=== PATIENT | male | born 1945 | race Caucasian/White ===

== ENCOUNTER 2018-05-23 10:56 | Emergency (ER) | payer OTHER, MEDICARE ==
[2018-05-23] MEDS ORDERED: TETANUS & DIPHTHERIA TOX,ADULT 0.5 ML VIAL ONE (11:47)
[2018-05-23] MEDS ORDERED: LIDOCAINE 1% MPF 5 ML VIAL ONE (11:47)
--- NOTE | 2018-05-23 13:43 | RAD REPORT ---
EXAM DESCRIPTION: RAD - Hand Left 3 View - 05/23/2018 1:24 pm CLINICAL HISTORY: Table saw injury, thumb and first digit laceration COMPARISON: None. FINDINGS: There is focal cortical irregularity along the ventral margin of the distal phalanx left t humb near the base. Soft tissue wound appears to be more distally in the thumb. No fracture fragments identified. IP joint of the thumb is intact. No foreign body in the soft tissues. The second- fifth digits show no acute bone or joint finding. No significant soft tissue finding. Pat ient has mild degenerative change at the first MCP joint as well as the first carpal - metacarpal art iculation. IMPRESSION: No gross fracture deformity or bone fragments in the soft tissues. No foreign body seen. Focal cortical defect in the ventral margin of the first distal phalanx is potentially an acute bone injury though there are no small fragments associated. Soft tissue wound of the distal left thumb.
--- NOTE | 2018-05-23 14:18 | ER ---
Nurse's Notes [facility] Name: Gary Rader Age: 72 yrs Sex: Male : 1945 Arrival Date: 05/23/2018 Time: 10:59 Bed 18 Private MD: John Varela T Diagnosis: Thumb Laceration Presentation: 05/23 11:02 Presenting complaint: Patient states: Laceration to left thumb from a table saw. jl7 Transition of care: patient was not received from another setting of care. Onset of symptoms was May 23, 2018. Risk Assessment: Do you want to hurt yourself or someone else? Patient reports no desire to harm self or others. Initial Sepsis Screen: Does the patient meet any 2 criteria? No. Patient's initial sepsis screen is negative. Does the patient have a suspected source of infection? No. Patient's initial sepsis screen is negative. Care prior to arrival: None. 11:02 Method Of Arrival: Ambulatory 7 11:02 Acuity: KAREL 4 jl7 Triage Assessment: 11:06 General: Appears in no apparent distress. uncomfortable, Behavior is calm, cooperative, jl7 appropriate for age. Pain: Complains of pain in palmar aspect of distal phalanx of left thumb Pain does not radiate. Pain currently is 6 out of 10 on a pain scale. Quality of pain is described as burning. Musculoskeletal: Range of motion: intact in all extremities. Injury Description: Laceration sustained to palmar aspect of distal phalanx of left thumb is contaminated, jagged, 0.5 to 2.5 cm long, was sustained 30-60 minutes ago. no active bleeding noted at this time. Historical: - Allergies: 11: No Known Allergies; jl7 - Home Meds: 11:06 Digoxin Oral [Active]; Metoprolol Tartrate Oral [Active]; jl7 - PMHx: 11:06 Atrial Fib; Diabetes - IDDM; Hypertension; jl7 - PSHx: 11:06 L knee replacement; R hip surgery; jl7 - Immunization history:: Adult Immunizations not up to date, Last tetanus immunization: > 10 years ago. - Social history:: Smoking status: Patient/guardian denies using tobacco. - Ebola Screening: : No symptoms or risks identified at this time. - Family history:: not pertinent. - Hospitalizations: : No recent hospitalization is reported. Screenin:11 Abuse screen: Denies threats or abuse. Denies injuries from another. Nutritional hj screening: No deficits noted. Tuberculosis screening: No symptoms or risk factors identified. Fall Risk None identified. Assessment: 11:10 General: Appears in no apparent distress. uncomfortable, Behavior is calm, cooperative, hj appropriate for age. Pain: Complains of pain in palmar aspect of distal phalanx of left thumb. Neuro: Level of Consciousness is awake, alert, obeys commands, Oriented to person, place, time, situation, Appropriate for age. Cardiovascular: Capillary refill < 3 seconds Patient's skin is warm and dry. Respiratory: Airway is patent Respiratory effort is even, unlabored, Respiratory pattern is regular, symmetrical. GI: No signs and/or symptoms were reported involving the gastrointestinal system. : EENT: No signs and/or symptoms were reported regarding the EENT system. Derm: Wound noted palmar aspect of distal phalanx of left thumb. Musculoskeletal: No signs and/or symptoms reported regarding the musculoskeletal system. 12:30 Reassessment: Patient and/or family updated on plan of care and expected duration. Pain hj level reassessed. Patient is alert, oriented x 3, equal unlabored respirations, skin warm/dry/pink. still waiting for xray;. 13:15 Reassessment: Patient and/or family updated on plan of care and expected duration. Pain hj level reassessed. Patient is alert, oriented x 3, equal unlabored respirations, skin warm/dry/pink. pt affected soaked in betadine with NS. Vital Signs: 11:06 BP 138 / 100; Pulse 83; Resp 18 S; Temp 98.1(O); Pulse Ox 98% on R/A; Weight 104.33 kg jl7 (R); Height 6 ft. 4 in. (193.04 cm) (R); Pain 6/10; 12:45 BP 137 / 92; Pulse 85; Resp 18; Pulse Ox 100% on R/A; hj 13:52 BP 137 / 95; Pulse 84; Resp 18; Pulse Ox 100% on R/A; hj 11:06 Body Mass Index 28.00 (104.33 kg, 193.04 cm) 7 ED Course: 10:59 Patient arrived in ED. mr 11:00 John Varela MD is Private Physician. mr 11:03 Triage completed. jl7 11:06 Arm band placed on right wrist. jl7 11:11 Cleveland Moy, RN is Primary Nurse. hj 11:11 Patient has correct armband on for positive identification. Bed in low position. Call hj light in reach. Side rails up X 1. 11:27 Alfonso Amaya MD is Attending Physician. rn 13:24 XRAY Hand LEFT 3 View In Process Unspecified. EDMS 14:16 John Varela MD is Referral Physician. rn 14:23 No provider procedures requiring assistance completed. Patient did not have IV access hj during this emergency room visit. Administered Medications: 11:36 Drug: Tetanus-Diphtheria Toxoid Adult 0.5 ml {Mental Health Consultant: [employer]. Exp: [employer] 07/23/2020. Lot #: [id number]. } Route: IM; Site: left deltoid; 13:34 Follow up: Response: No adverse reaction hj 13:34 Drug: Lidocaine (1 %) 1 vials Volume: 5 ml; Route: Infiltration; hj 13:34 Follow up: Response: No adverse reaction hj Outcome: 14:17 Discharge ordered by MD. rn 14:23 Discharged to home ambulatory. hj 14:23 Condition: stable 14:23 Discharge instructions given to patient, Instructed on discharge instructions, follow up and referral plans. medication usage, Demonstrated understanding of instructions, follow-up care, medications, Prescriptions given X 1. 14:24 Patient left the ED. Signatures: Dispatcher [employer] [facility] Dawna Conley Alfonso Amaya MD MD rn Joaquin, Henry, RN Daisha Andrew RN RN jl7
--- NOTE | 2018-05-23 14:18 | EDPHYS ---
Physician Documentation [facility] Name: Gary Rader Age: 72 yrs Sex: Male : 1945 Arrival Date: 05/23/2018 Time: 10:59 Bed 18 Private MD: John Varela T ED Physician Alfonso Amaya HPI: 05/23 14:14 This 72 yrs old Male presents to ER via Ambulatory with complaints of Thumb rn Injury. 14:14 The patient or guardian reports a laceration. The complaints affect the palmar aspect rn of distal phalanx of left thumb. Onset: The symptoms/episode began/occurred just prior to arrival. Severity of symptoms: At their worst the symptoms were mild, in the emergency department the symptoms are unchanged. The patient has not experienced similar symptoms in the past. Accidental laceration left thumb on table saw approx 45 min prior to arrival.. Historical: - Allergies: 11:06 No Known Allergies; jl7 - Home Meds: 11:06 Digoxin Oral [Active]; Metoprolol Tartrate Oral [Active]; jl7 - PMHx: 11:06 Atrial Fib; Diabetes - IDDM; Hypertension; jl7 - PSHx: 11:06 L knee replacement; R hip surgery; jl7 - Immunization history:: Adult Immunizations not up to date, Last tetanus immunization: > 10 years ago. - Social history:: Smoking status: Patient/guardian denies using tobacco. - Ebola Screening: : No symptoms or risks identified at this time. - Family history:: not pertinent. - Hospitalizations: : No recent hospitalization is reported. ROS: 14:14 Constitutional: Negative for fever, chills, and weight loss, MS/Extremity: + laceration rn left thumb Exam: 14:14 Constitutional: This is a well developed, well nourished patient who is awake, alert, rn and in no acute distress. MS/ Extremity: Pulses equal, no cyanosis. Neurovascular intact. Full, normal range of motion. Equal circumference. + 2 small superficial lacerations left thumb, first is 1cm, second is 2cm, cannot probe to bone Vital Signs: 11:06 BP 138 / 100; Pulse 83; Resp 18 S; Temp 98.1(O); Pulse Ox 98% on R/A; Weight 104.33 kg jl7 (R); Height 6 ft. 4 in. (193.04 cm) (R); Pain 6/10; 12:45 BP 137 / 92; Pulse 85; Resp 18; Pulse Ox 100% on R/A; hj 13:52 BP 137 / 95; Pulse 84; Resp 18; Pulse Ox 100% on R/A; hj 11:06 Body Mass Index 28.00 (104.33 kg, 193.04 cm) jl7 Laceration: 14:03 Wound Repair of 4cm ( 1.6in ) subcutaneous laceration to palmar aspect of distal pm1 phalanx of left thumb. Linear shaped.. Distal neuro/vascular/tendon intact. Anesthesia: Digital block administered with 3 mls of 1% lidocaine. Wound prep: Extensive cleansing with betadine with hibiclenz by bakery technician, Wound irrigation with saline by bakery technician by ar, Wound explored extensively, Copious irrigation. Skin closed with 5 4-0 Prolene using simple sutures and sterile technique. Skin closed with 5 5-0 Prolene using simple sutures and sterile technique. Dressed with Neosporin, 4x4's, tube gauze. Patient tolerated well. MDM: 11:27 Patient medically screened. rn 14:14 Differential diagnosis: open fracture, closed fracture, laceration. Data reviewed: rn vital signs, nurses notes, radiologic studies, plain films, and as a result, I will discharge patient. Counseling: I had a detailed discussion with the patient and/or guardian regarding: the historical points, exam findings, and any diagnostic results supporting the discharge/admit diagnosis, radiology results, the need for outpatient follow up, to return to the emergency department if symptoms worsen or persist or if there are any questions or concerns that arise at home. Special discussion: I discussed with the patient/guardian in detail that at this point there is no indication for admission to the hospital. It is understood, however, that if the symptoms persist or worsen the patient needs to return immediately for re-evaluation. 14:20 ED course: Pt states had old bony injury to same thumb years ago, likely explaining rn abnormal finding on xray, not an acute open fracture.. 05/23 11:32 Order name: XRAY Hand LEFT 3 View; Complete Time: 13:44 rn 05/23 11:32 Order name: Prolene, Sutures; Complete Time: 13:33 rn 05/23 11:32 Order name: Dressing - Wound; Complete Time: 11:36 rn 05/23 11:32 Order name: Gloves, Sterile; Complete Time: 11:36 rn 05/23 11:32 Order name: Setup Suture Tray; Complete Time: 11:36 rn 05/23 11:32 Order name: Wound Care; Complete Time: 11:36 rn Administered Medications: 11:36 Drug: Tetanus-Diphtheria Toxoid Adult 0.5 ml {Clinical Field Specialist: [employer]. Exp: 07/23/2020. Lot #: [id number]. } Route: IM; Site: left deltoid; 13:34 Follow up: Response: No adverse reaction 13:34 Drug: Lidocaine (1 %) 1 vials Volume: 5 ml; Route: Infiltration; 13:34 Follow up: Response: No adverse reaction Disposition: 19:07 Co-signature as Attending Physician, Alfonso Amaya MD. rn Disposition: 05/23/18 14:17 Discharged to Home. Impression: Thumb Laceration. - Condition is Stable. - Discharge Instructions: Laceration Care, Adult. - Prescriptions for Augmentin 875- 125 mg Oral Tablet - take 1 tablet by ORAL route every 12 hours for 10 days; 20 tablet. - Medication Reconciliation Form, Thank You Letter, Antibiotic Education, Prescription Opioid Use form. - Follow up: John Varela MD; When: 14 days; Reason: Wound Recheck, Staple/Suture removal. - Problem is new. - Symptoms have improved. Signatures: Dispatcher [employer] EDMS Alfonso Amaya MD MD rn Joaquin, Henry, RN RN hj Marinas, Patrick, WILLIAM SPONGE DIVER pm1 Daisha Tinoco RN RN jl7 Corrections: (The following items were deleted from the chart) 14:24 14:17 05/23/2018 14:17 Discharged to Home. Impression: Thumb Laceration. Condition is hj Stable. Forms are Medication Reconciliation Form, Thank You Letter, Antibiotic Education, Prescription Opioid Use. Follow up: John Varela; When: 14 days; Reason: Wound Recheck, Staple/Suture removal. Problem is new. Symptoms have improved. rn
[2018-05-23 14:29] VITALS: TEMP 98.1
[2018-05-23 14:30] VITALS: O2SAT 100
[2018-05-23 14:31] VITALS: BP 137/95
== END 2018-05-23 14:24 | disposition home or self-care (01) ==
LOC: ER 10:56
PROC: 0JQK0ZZ Repair Left Hand Subcutaneous Tissue and Fascia, Open Approach (ICD-10-PCS; principal; 2018-05-23)
DX: S61.012A Laceration without foreign body of left thumb without damage to nail, initial encounter (principal); W31.2XXA Contact with powered woodworking and forming machines, initial encounter; Y93.89 Activity, other specified; Y92.009 Unspecified place in unspecified non-institutional (private) residence as the place of occurrence of the external cause; Z23 Encounter for immunization; I10 Essential (primary) hypertension; I48.91 Unspecified atrial fibrillation
CPT/HCPCS: 90714; 99283

== ENCOUNTER 2019-10-09 15:42 | Emergency (ER) | payer OTHER, MEDICARE ==
--- NOTE | 2019-10-09 17:18 | EDPHYS ---
Physician Documentation [facility] Name: Gary Rader Age: 73 yrs Sex: Male : 1945 Arrival Date: 10/09/2019 Time: 15:45 Bed 16 Private MD: John Varela T ED Physician All Pablo HPI: 10/09 16:22 This 73 yrs old Male presents to ER via Wheelchair with complaints of Leg snw Swelling. 16:22 The patient presents with an injury. The complaints affect the lateral aspect of left snw calf. Context: The problem was sustained at home, resulted from the patient falling, the patient can fully bear weight, the patient is able to ambulate. Onset: The symptoms/episode began/occurred suddenly, yesterday. Associated signs and symptoms: Pertinent positives: skin tear. Severity of symptoms: At their worst the symptoms were moderate. The patient has experienced similar episodes in the past. The patient has not recently seen a physician. on pradaxa, noted skin tear and concerned for cellulitis. Historical: - Allergies: 16:01 No Known Allergies; iw - Home Meds: 16:04 Digoxin Oral [Active]; Metoprolol Tartrate Oral [Active]; tw2 - PMHx: 16:01 Atrial Fib; Diabetes - IDDM; Hypertension; iw - PSHx: 16:01 L knee replacement; R hip surgery; iw - Immunization history:: Last tetanus immunization: unknown. - Social history:: Smoking status: Patient/guardian denies using tobacco. - Ebola Screening: : Patient negative for fever greater than or equal to 101.5 degrees Fahrenheit, and additional compatible Ebola Virus Disease symptoms Patient denies exposure to infectious person Patient denies travel to an Ebola-affected area in the 21 days before illness onset No symptoms or risks identified at this time. ROS: 16:21 Constitutional: Negative for fever, chills, and weight loss, Eyes: Negative for injury, snw pain, redness, and discharge, ENT: Negative for injury, pain, and discharge, Neck: Negative for injury, pain, and swelling, Cardiovascular: Negative for chest pain, palpitations, and edema, Respiratory: Negative for shortness of breath, cough, wheezing, and pleuritic chest pain, Abdomen/GI: Negative for abdominal pain, nausea, vomiting, diarrhea, and constipation, Back: Negative for injury and pain, : Negative for injury, bleeding, discharge, and swelling, Skin: Negative for injury, rash, and discoloration, Neuro: Negative for headache, weakness, numbness, tingling, and seizure. 16:21 MS/extremity: Positive for injury or acute deformity, ecchymosis, tenderness, concerned for cellulitis. Exam: 16:20 Constitutional: This is a well developed, well nourished patient who is awake, alert, snw and in no acute distress. Head/Face: Normocephalic, atraumatic. Eyes: Pupils equal round and reactive to light, extra-ocular motions intact. Lids and lashes normal. Conjunctiva and sclera are non-icteric and not injected. Cornea within normal limits. Periorbital areas with no swelling, redness, or edema. ENT: Nares patent. No nasal discharge, no septal abnormalities noted. Tympanic membranes are normal and external auditory canals are clear. Oropharynx with no redness, swelling, or masses, exudates, or evidence of obstruction, uvula midline. Mucous membranes moist. Neck: Trachea midline, no thyromegaly or masses palpated, and no cervical lymphadenopathy. Supple, full range of motion without nuchal rigidity, or vertebral point tenderness. No Meningismus. Chest/axilla: Normal chest wall appearance and motion. Nontender with no deformity. No lesions are appreciated. Cardiovascular: Regular rate and rhythm with a normal S1 and S2. No gallops, murmurs, or rubs. Normal PMI, no JVD. No pulse deficits. Respiratory: Lungs have equal breath sounds bilaterally, clear to auscultation and percussion. No rales, rhonchi or wheezes noted. No increased work of breathing, no retractions or nasal flaring. Abdomen/GI: Soft, non-tender, with normal bowel sounds. No distension or tympany. No guarding or rebound. No evidence of tenderness throughout. Back: No spinal tenderness. No costovertebral tenderness. Full range of motion. Neuro: Awake and alert, GCS 15, oriented to person, place, time, and situation. Cranial nerves II-XII grossly intact. Motor strength 5/5 in all extremities. Sensory grossly intact. Cerebellar exam normal. Normal gait. Psych: Awake, alert, with orientation to person, place and time. Behavior, mood, and affect are within normal limits. 16:20 Musculoskeletal/extremity: Extremities: grossly normal except: contusion, tenderness, + large hematoma to left lateral lower ext , Circulation is intact in all extremities. Sensation intact. Vital Signs: 16:01 BP 132 / 82; Pulse 80; Resp 18 S; Pulse Ox 98% on R/A; Weight 101.6 kg; Height 6 ft. 4 iw in. (193.04 cm); 16:16 Temp 97.9(TE); tw2 16:57 BP 142 / 76; Pulse 78; Resp 17; Pulse Ox 97% on R/A; tw2 16:01 Body Mass Index 27.27 (101.60 kg, 193.04 cm) iw MDM: 16:01 Patient medically screened. snw 17:19 Data reviewed: vital signs, nurses notes. Data interpreted: Pulse oximetry: on room air snw is 97 %. Interpretation: normal. Counseling: I had a detailed discussion with the patient and/or guardian regarding: the historical points, exam findings, and any diagnostic results supporting the discharge/admit diagnosis, radiology results, the need for outpatient follow up, to return to the emergency department if symptoms worsen or persist or if there are any questions or concerns that arise at home. Special discussion: I have referred the patient to see his PCP for further evaluation of high blood pressure. I discussed in detail with the patient the higher chance of wound infection based on his presenting history. Based on the history and exam findings, there is no indication for further emergent testing or inpatient evaluation. I discussed with the patient/guardian the need to see the primary care provider for further evaluation of the symptoms. 10/09 16:10 Order name: Tib Fib Left XRAY; Complete Time: 17:29 snw 10/09 16:10 Order name: Wound Care; Complete Time: 16:35 snw 10/09 16:10 Order name: Hilario Wrap; Complete Time: 16:35 snw Administered Medications: No medications were administered Disposition: 10/10 07:22 Co-signature as Attending Physician, All Pablo MD I agree with the assessment and kdr plan of care. Disposition: 10/09/19 17:17 Discharged to Home. Impression: Fall on same level, unspecified, Hematoma, Skin tear. - Condition is Stable. - Discharge Instructions: Hematoma, [id number], Fall Prevention in the Home, Wound Care. - Prescriptions for Keflex 500 mg Oral Capsule - take 1 capsule by ORAL route every 8 hours for 10 days; 30 capsule. - Medication Reconciliation Form, Thank You Letter, Antibiotic Education, Prescription Opioid Use form. - Follow up: John Varela MD; When: 2 - 3 days; Reason: Recheck today's complaints, Continuance of care, Re-evaluation by your physician. Follow up: Emergency Department; When: As needed; Reason: Worsening of condition. Signatures: Dispatcher [employer] EDMS All Pablo MD MD kdr Verenice Goodwin, JOINT TERMINAL ATTACK CONTROLLER-C JOINT TERMINAL ATTACK CONTROLLER-Csnw Felicia Vitale, RN RN iw Dixie Lawson RN RN tw2 Corrections: (The following items were deleted from the chart) 10/09 17:32 17:17 10/09/2019 17:17 Discharged to Home. Impression: Fall on same level, unspecified; tw2 Hematoma; Skin tear. Condition is Stable. Forms are Medication Reconciliation Form, Thank You Letter, Antibiotic Education, Prescription Opioid Use. Follow up: John Varela; When: 2 - 3 days; Reason: Recheck today's complaints, Continuance of care, Re-evaluation by your physician. Follow up: Emergency Department; When: As needed; Reason: Worsening of condition. snw
--- NOTE | 2019-10-09 17:18 | ER ---
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 Transition of care: patient was not received from another setting of care. Onset of symptoms was October 08, 2019. Risk Assessment: Do you want to hurt yourself or someone else? Patient reports no desire to harm self or others. Initial Sepsis Screen: Does the patient meet any 2 criteria? No. Patient's initial sepsis screen is negative. Does the patient have a suspected source of infection? No. Patient's initial sepsis screen is negative. Care prior to arrival: None. 15:59 Method Of Arrival: Wheelchair 15:59 Acuity: KAREL 3 iw Historical: - Allergies: 16:01 No Known Allergies; iw - Home Meds: 16:04 Digoxin Oral [Active]; Metoprolol Tartrate Oral [Active]; tw2 - PMHx: 16:01 Atrial Fib; Diabetes - IDDM; Hypertension; iw - PSHx: 16:01 L knee replacement; R hip surgery; iw - Immunization history:: Last tetanus immunization: unknown. - Social history:: Smoking status: Patient/guardian denies using tobacco. - Ebola Screening: : Patient negative for fever greater than or equal to 101.5 degrees Fahrenheit, and additional compatible Ebola Virus Disease symptoms Patient denies exposure to infectious person Patient denies travel to an Ebola-affected area in the 21 days before illness onset No symptoms or risks identified at this time. Screenin:03 Abuse screen: Denies threats or abuse. Nutritional screening: No deficits noted. tw2 Tuberculosis screening: No symptoms or risk factors identified. Fall Risk Secondary diagnosis (15 points) impaired mobility. Assessment: 16:16 General: Appears in no apparent distress. Behavior is calm, cooperative, appropriate tw2 for age. Pain: Denies pain. Neuro: Level of Consciousness is awake, alert, obeys commands, Oriented to person, place, time, situation. Cardiovascular: Patient's skin is warm and dry. Respiratory: Airway is patent Respiratory effort is even, unlabored, Respiratory pattern is regular, symmetrical. GI: No signs and/or symptoms were reported involving the gastrointestinal system. : No signs and/or symptoms were reported regarding the genitourinary system. EENT: No signs and/or symptoms were reported regarding the EENT system. Derm: Bruising that is bright red, dark purple, on lateral aspect of left calf. Musculoskeletal: Circulation, motion, and sensation intact. Range of motion: intact in all extremities. 16:28 Reassessment: xray at bedside at this time. tw2 17:32 Reassessment: Patient appears in no apparent distress at this time. No changes from tw2 previously documented assessment. Patient and/or family updated on plan of care and expected duration. Pain level reassessed. Patient is alert, oriented x 3, equal unlabored respirations, skin warm/dry/pink. Vital Signs: 16:01 BP 132 / 82; Pulse 80; Resp 18 S; Pulse Ox 98% on R/A; Weight 101.6 kg; Height 6 ft. 4 iw in. (193.04 cm); 16:16 Temp 97.9(TE); tw2 16:57 BP 142 / 76; Pulse 78; Resp 17; Pulse Ox 97% on R/A; tw2 16:01 Body Mass Index 27.27 (101.60 kg, 193.04 cm) iw ED Course: 15:45 Patient arrived in ED. mr 15:45 John Varela MD is Private Physician. mr 15:51 Dixie Lawson, ANTOINETTE is Primary Nurse. tw2 15:52 Verenice Goodwin F[facility]-C [facility]. snw 15:52 All Pablo MD is Attending Physician. snw 15:52 Bed in low position. Call light in reach. Adult w/ patient. tw2 16:00 Triage completed. iw 16:02 Arm band placed on. iw 16:17 No provider procedures requiring assistance completed. Patient did not have IV access tw2 during this emergency room visit. 16:35 Dressings: non-adherent dressing x 1 lateral aspect of left calf paul wrap. Wound care: tw2 to abrasion, located on lateral aspect of left calf was cleaned with Hibiclens, Patient tolerated well. 16:36 Tib Fib Left XRAY In Process Unspecified. EDMS 17:15 John Varela MD is Referral Physician. snw Administered Medications: No medications were administered Outcome: 17:17 Discharge ordered by . snw 17:31 Discharged to home via wheelchair, with significant other. tw2 17:31 Condition: stable 17:31 Discharge instructions given to patient, significant other, Instructed on discharge instructions, follow up and referral plans. medication usage, wound care, Demonstrated understanding of instructions, follow-up care, medications, Prescriptions given X 1. 17:32 Patient left the ED. tw2 Signatures: Dispatcher [employer] EDMS Verenice Goodwin, SLUDGE MILL OPERATOR-C SLUDGE MILL OPERATOR-Carole Isbell Irene, RN RN Dixie Ruiz RN RN tw2
--- NOTE | 2019-10-09 17:19 | RAD REPORT ---
EXAM DESCRIPTION: RAD - Tib Fib Left - 10/09/2019 4:33 pm CLINICAL HISTORY: Pain, trauma COMPARISON: None. FINDINGS: No fracture is identified. There is no dislocation or periosteal reaction noted. Left tota l knee prosthesis in place. No radiographic evidence for loosening. No large joint effusion at the kn ee. Spurs are present at the quadriceps tendon attachment and patella tendon origin. Congested or raf matous appearance to the subcutaneous fatty tissue seen. No air or foreign body seen. Degenerative changes are present at the tibiotalar joint space. Joint space is narrowed with marginal spurring. A small plantar spur is present. There is a large calcification at the Achilles attachment with thickening of the tendon. IMPRESSION: No fracture or acute bone finding. Soft tissue edema without air or foreign body seen. Chronic Achilles tendinitis changes. Small plantar spur. Prominent degenerative change at the tibiotalar joint space.
[2019-10-09 19:14] VITALS: TEMP 97.9
[2019-10-09 19:15] VITALS: BP 142/76; O2SAT 97
== END 2019-10-09 17:32 | disposition home or self-care (01) ==
LOC: ER 15:42
DX: S81.812A Laceration without foreign body, left lower leg, initial encounter (principal); W19.XXXA Unspecified fall, initial encounter; Y93.9 Activity, unspecified; Y92.009 Unspecified place in unspecified non-institutional (private) residence as the place of occurrence of the external cause; I10 Essential (primary) hypertension; E11.9 Type 2 diabetes mellitus without complications; I48.91 Unspecified atrial fibrillation
CPT/HCPCS: 99283

== ENCOUNTER 2019-11-10 09:03 | Day surgery (SDC) | payer OTHER, MEDICARE ==
--- NOTE | 2019-11-10 08:57 | EKG ---
Test Date: 2019-11-10 Test Time: 08:49:38 Licensed Embalmer: MARCI MEASUREMENT RESULTS: Intervals: Rate: 75 CO: QRSD: 94 QT: 392 QTc: 437 [place]: P: CO: QRS: 33 T: 146 INTERPRETIVE STATEMENTS: Atrial fibrillation Nonspecific ST and T wave abnormality, probably digitalis effect Abnormal ECG Compared to ECG 09/16/2013 09:09:18 No significant changes Electronically Signed On 11-10-19 08:57:34 ACCOUNT DEVELOPMENT MANAGER by Guy Garcia
--- NOTE | 2019-11-10 09:20 | RAD REPORT ---
EXAM DESCRIPTION: Shawna Mo (2 Views)11/10/2019 8:46 am CLINICAL HISTORY: Preop for leg surgery COMPARISON: 2013 FINDINGS: The lungs appear clear of acute infiltrate. The heart is mildly to moderately enlarged IMPRESSION: No acute abnormalities displayed
[2019-11-10 09:29] LABS: Absolute Lymphocytes (CBC) 2.5 K/uL (0.7-4.9); Basophils % 0.6 % (0-1.3); Hematocrit 39.2 % (39.6-49.0); Lymphocytes % 29.2 % (15.3-44.8); MPV 9.8 fL (7.6-11.3); RBC Red Blood Cell Count 4.21 M/uL (4.33-5.43)
[2019-11-10] MEDS ORDERED: NA CHLORIDE 0.9% 1,000 ML ONE (09:29)
[2019-11-10 09:39] LABS: Potassium 4.8 mmol/L (3.5-5.1)
[2019-11-10] MEDS ORDERED: LIDOCAINE 2% MPF 5 ML VIAL ONE (09:49)
[2019-11-10] MEDS ORDERED: propofoL 200 MG/20 ML VIAL IV ONE (09:49)
[2019-11-10] MEDS: CEFAZOLIN/SWI 1gm 1 GM/10 ML SYR ONE ×2 (09:49→09:50)
[2019-11-10] MEDS ORDERED: FENTANYL CITR 100 MCG/2 ML ONE (09:50)
[2019-11-10] MEDS ORDERED: ONDANSETRON 4 MG/2 ML VIAL ONE (09:50)
[2019-11-10] MEDS ORDERED: MIDAZOLAM HCL 2 MG/2 ML INJ ONE (09:50)
[2019-11-10] MEDS ORDERED: NS 0.9% VIAL 10 ML ONE (10:03)
[2019-11-10] MEDS ORDERED: Phenylephrine HCl 10 MG/ML 1 ML VIAL ONE (10:03)
[2019-11-10 11:47] VITALS: BP 120/80; TEMP 97.7; O2SAT 100
[2019-11-10] MEDS ORDERED: HYDROCODONE/APAP 7.5/325 MG TAB ONE (12:33)
--- NOTE | 2019-11-10 20:16 | OP ---
Date of Procedure: 11/10/2019 Surgeon: Adi Judd MD Preoperative Diagnosis: Left leg hematoma. Postoperative Diagnosis: Left leg hematoma. Procedure: Incision and drainage of left leg hematoma 10 x 15 cm. Estimated Blood Loss: Minimal. Specimens: Culture and sensitivity of the blood clot. Finding: As above. Anesthesia: General. Complications: None. Disposition: Patient tolerated the procedure in stable condition, taken to Recovery in good general condition. Procedure In Detail: Patient was brought to the OR and placed in supine position. General anesthesi a begun. Patient was prepped and draped in usual sterile fashion. Marcaine 0.5% was infiltrated loc ally. Then 15 blade was used to cut out a necrotic piece of tissue approximately 2 cm in diameter an d the left lateral leg and subcutaneous tissue was divided. Entire necrotic area evacuated and then a pulse irrigation introduced into the hematoma. There were clots present. Cultures were done and p ulse irrigation was utilized to break up the clots and all of the hematoma was evacuated. Then, a Ja ckson-Cooper drain via a stab incision was made in the posterior inferior part of the leg and then sec ured with 3-0 nylon and then 3-0 nylon was used to close the wound where the necrotic tissue was . Then, sterile dressing was applied. Patient was awakened and taken to Recovery in good general condition. The area of evacuation was approximately 10 x 15 cm. /MODL Voice ID: [id number] Report ID: [id number]
--- NOTE | 2019-11-10 20:22 | DS ---
Date of Discharge: 11/10/2019 Patient will to Day Surgery and home when stable. Disposition: Home. Condition: Stable. Discharge Instructions: Resume home medications and diet. Activity as tolerated. Keep dressing agapito an and dry. Sponge bathe only. Tylenol No. 3 one tablet p.o. q.4 p.r.n. pain. Record NANY drain q.12 hours. Bring record to office and Keflex 500 mg p.o. q.6. JOANIE/ANIKET Voice ID: [id number] Report ID: [id number]
== END 2019-11-10 13:17 | disposition home or self-care (01) ==
LOC: OR 09:03
PROVIDERS: ATTEND Surgery
PROC: 0J9P0ZX Drainage of Left Lower Leg Subcutaneous Tissue and Fascia, Open Approach, Diagnostic (ICD-10-PCS; principal; 2019-11-10 09:30)
DX: S80.12XA Contusion of left lower leg, initial encounter (principal); E11.9 Type 2 diabetes mellitus without complications; I10 Essential (primary) hypertension; I48.91 Unspecified atrial fibrillation
CPT/HCPCS: 93005; 87070; 85025; 80048; 36415; 87205; 82947 ×2; 87075; 71046; 10140; J2704; J2370; J2250; J3010; J0690; J7030; J2405

== ENCOUNTER 2019-11-29 12:01 | Emergency (ER) | payer OTHER, MEDICARE ==
[2019-11-29] MEDS ORDERED: NA CHLORIDE 0.9% 500 ML ONE (12:26)
[2019-11-29 12:36] LABS: Absolute Lymphocytes (CBC) 0.8 K/uL (0.7-4.9); Basophils % 0.6 % (0-1.3); Lymphocytes % 12.8 % (15.3-44.8); MPV 9.8 fL (7.6-11.3); RBC Red Blood Cell Count 4.26 M/uL (4.33-5.43)
[2019-11-29] MEDS ORDERED: ACETAMINOPHEN 500 MG TAB ONE (12:39)
[2019-11-29 12:53] LABS: Potassium 4.2 mmol/L (3.5-5.1)
[2019-11-29] MEDS ORDERED: OSELTAMIVIR 75 MG CAP ONE (13:11)
--- NOTE | 2019-11-29 13:19 | RAD REPORT ---
EXAM DESCRIPTION: Shawna Mo (2 Views)11/29/2019 1:12 pm CLINICAL HISTORY: Cough COMPARISON: 2018 FINDINGS: The lungs appear clear of acute infiltrate. The heart is mildly enlarged IMPRESSION: No acute abnormalities displayed
--- NOTE | 2019-11-29 13:21 | EDPHYS ---
Physician Documentation [facility] Name: Gary Rader Age: 73 yrs Sex: Male : 1945 Arrival Date: 11/29/2019 Time: 12:03 Bed 28 Private MD: ED Physician All Pablo HPI: 11/29 12:25 This 73 yrs old Male presents to ER via Ambulatory with complaints of Flu kb Symptoms. 12:25 The patient or guardian reports cough, that is intermittent, described as moderate, flu kb symptoms, low-grade fever, myalgias. Onset: The symptoms/episode began/occurred yesterday. Severity of symptoms: At their worst the symptoms were moderate, in the emergency department the symptoms are unchanged. Modifying factors: The symptoms are alleviated by nothing, the symptoms are aggravated by nothing. Associated signs and symptoms: Pertinent positives: rhinorrhea. The patient has not experienced similar symptoms in the past. The patient has not recently seen a physician. Pt reports chills, cough, congestion, decreased appetite and weakness that started yesterday. recently diagnosed with the flu. Historical: - Allergies: 12:19 No Known Allergies; ss - PMHx: 12:19 Atrial Fib; Diabetes - IDDM; Hypertension; ss - PSHx: 12:19 L knee replacement; R hip surgery; ss - Immunization history:: Adult Immunizations up to date. - Coronavirus screen:: The patient has NOT traveled to [place], [place], or [place] in the past 14 days. Proceed with normal triage process as indicated. - Social history:: Smoking status: Patient denies any tobacco usage or history of. - Ebola Screening: : Patient denies exposure to infectious person Patient denies travel to an Ebola-affected area in the 21 days before illness onset. ROS: 12:23 Neck: Negative for injury, pain, and swelling, Cardiovascular: Negative for chest pain, kb palpitations, and edema, Abdomen/GI: Negative for abdominal pain, nausea, vomiting, diarrhea, and constipation, Back: Negative for injury and pain, : Negative for injury, bleeding, discharge, and swelling, MS/Extremity: Negative for injury and deformity, Skin: Negative for injury, rash, and discoloration. 12:23 Constitutional: Positive for body aches, chills, fatigue, malaise. 12:23 ENT: Positive for rhinorrhea, sinus congestion. 12:23 Respiratory: Positive for cough, Negative for dyspnea on exertion, hemoptysis, orthopnea, pleurisy, shortness of breath, wheezing. 12:23 Neuro: Positive for weakness. Exam: 12:23 Constitutional: This is a well developed, well nourished patient who is awake, alert, kb and in no acute distress. Head/Face: Normocephalic, atraumatic. ENT: Nares patent. No nasal discharge, no septal abnormalities noted. Tympanic membranes are normal and external auditory canals are clear. Oropharynx with no redness, swelling, or masses, exudates, or evidence of obstruction, uvula midline. Mucous membranes moist. Neck: Trachea midline, no thyromegaly or masses palpated, and no cervical lymphadenopathy. Supple, full range of motion without nuchal rigidity, or vertebral point tenderness. No Meningismus. Chest/axilla: Normal chest wall appearance and motion. Nontender with no deformity. No lesions are appreciated. Cardiovascular: Regular rate and rhythm with a normal S1 and S2. No gallops, murmurs, or rubs. Normal PMI, no JVD. No pulse deficits. Respiratory: Lungs have equal breath sounds bilaterally, clear to auscultation and percussion. No rales, rhonchi or wheezes noted. No increased work of breathing, no retractions or nasal flaring. Abdomen/GI: Soft, non-tender, with normal bowel sounds. No distension or tympany. No guarding or rebound. No evidence of tenderness throughout. Back: No spinal tenderness. No costovertebral tenderness. Full range of motion. Skin: Warm, dry with normal turgor. Normal color with no rashes, no lesions, and no evidence of cellulitis. MS/ Extremity: Pulses equal, no cyanosis. Neurovascular intact. Full, normal range of motion. Neuro: Awake and alert, GCS 15, oriented to person, place, time, and situation. Cranial nerves II-XII grossly intact. Motor strength 5/5 in all extremities. Sensory grossly intact. Cerebellar exam normal. Normal gait. Vital Signs: 12:19 BP 123 / 77; Pulse 87; Resp 16; Temp 101.2(O); Pulse Ox 97% on R/A; Weight 102.06 kg; ss Height 6 ft. 4 in. (193.04 cm); Pain 2/10; 13:21 BP 107 / 52; Pulse 90; Resp 18; Temp 98.3(O); Pulse Ox 100% on R/A; mg2 12:19 Body Mass Index 27.39 (102.06 kg, 193.04 cm) ss MDM: 12:11 Patient medically screened. kb 12:24 Data reviewed: vital signs, nurses notes. Data interpreted: Pulse oximetry: on room air kb is 97 %. Interpretation: normal. 13:06 Counseling: I had a detailed discussion with the patient and/or guardian regarding: the kb historical points, exam findings, and any diagnostic results supporting the discharge/admit diagnosis, lab results, radiology results, the need for outpatient follow up, a family practitioner, to return to the emergency department if symptoms worsen or persist or if there are any questions or concerns that arise at home. 11/29 12:19 Order name: Flu; Complete Time: 12:50 kb 11/29 12:19 Order name: CBC with Diff; Complete Time: 12:41 kb 11/29 12:19 Order name: Chest Pa And Lat (2 Views) XRAY; Complete Time: 13:21 kb 11/29 12:19 Order name: Basic Metabolic Panel; Complete Time: 13:06 kb 11/29 12:19 Order name: IV Start; Complete Time: 12:33 kb Administered Medications: 12:33 Drug: NS 0.9% 500 ml Route: IV; Rate: bolus; Site: left forearm; mg2 13:22 Follow up: Response: No adverse reaction; IV Status: Completed infusion; IV Intake: mg2 500ml 12:33 Drug: Tylenol 1000 mg Route: PO; mg2 13:22 Follow up: Response: No adverse reaction; Temperature is decreased mg2 13:16 Drug: Tamiflu 75 mg Route: PO; mg2 13:22 Follow up: Response: No adverse reaction mg2 Disposition: 21:26 Co-signature as Attending Physician, All Pablo MD I agree with the assessment and kdr plan of care. Disposition: 11/29/19 13:21 Discharged to Home. Impression: Influenza due to identified novel influenza A virus. - Condition is Stable. - Discharge Instructions: Influenza, Adult, [id number]. - Prescriptions for Tamiflu 75 mg Oral Capsule - take 1 capsule by ORAL route every 12 hours for 5 days; 10 capsule. - Medication Reconciliation Form, Thank You Letter, Antibiotic Education, Prescription Opioid Use form. - Follow up: Emergency Department; When: As needed; Reason: Worsening of condition. Follow up: Private Physician; When: 2 - 3 days; Reason: Recheck today's complaints, Continuance of care, Re-evaluation by your physician. Signatures: Dispatcher [employer] EDMS Arcelia White, INFECTION PREVENTIONIST-C INFECTION PREVENTIONIST-Ckb All Pablo MD MD [facility] Shea Balderas RN RN ss Victor Manuel Viera RN RN mg2 Corrections: (The following items were deleted from the chart) 13:36 13:21 11/29/2019 13:21 Discharged to Home. Impression: Influenza due to identified mg2 novel influenza A virus. Condition is Stable. Discharge Instructions: Influenza, Adult, [id number]. Prescriptions for Tamiflu 75 mg Oral Capsule - take 1 capsule by ORAL route every 12 hours for 5 days; 10 capsule. and Forms are Medication Reconciliation Form, Thank You Letter, Antibiotic Education, Prescription Opioid Use. Follow up: Emergency Department; When: As needed; Reason: Worsening of condition. Follow up: Private Physician; When: 2 - 3 days; Reason: Recheck today's complaints, Continuance of care, Re-evaluation by your physician. kb
--- NOTE | 2019-11-29 13:21 | ER ---
Nurse's Notes [facility] Name: Gary Rader Age: 73 yrs Sex: Male : 1945 Arrival Date: 11/29/2019 Time: 12:03 Bed 28 Private MD: Diagnosis: Influenza due to identified novel influenza A virus Presentation: 11/29 12:18 Presenting complaint: Patient states: cough, runny nose and chills that began ss yesterday. Transition of care: patient was not received from another setting of care. Onset of symptoms was November 28, 2019. Risk Assessment: Do you want to hurt yourself or someone else? Patient reports no desire to harm self or others. Initial Sepsis Screen: Does the patient meet any 2 criteria? Temp <36.0*C (96.8*F)) or > 38.3*C (100.9*F). Does the patient have a suspected source of infection? No. Patient's initial sepsis screen is negative. Care prior to arrival: None. 12:18 Method Of Arrival: Ambulatory ss 12:18 Acuity: KAREL 3 ss Historical: - Allergies: 12:19 No Known Allergies; ss - PMHx: 12:19 Atrial Fib; Diabetes - IDDM; Hypertension; ss - PSHx: 12:19 L knee replacement; R hip surgery; ss - Immunization history:: Adult Immunizations up to date. - Coronavirus screen:: The patient has NOT traveled to [place], [place], or [place] in the past 14 days. Proceed with normal triage process as indicated. - Social history:: Smoking status: Patient denies any tobacco usage or history of. - Ebola Screening: : Patient denies exposure to infectious person Patient denies travel to an Ebola-affected area in the 21 days before illness onset. Screenin:32 Abuse screen: Denies threats or abuse. Denies injuries from another. Nutritional mg2 screening: No deficits noted. Tuberculosis screening: No symptoms or risk factors identified. Fall Risk IV access (20 points). Assessment: 12:32 General: Appears in no apparent distress. comfortable, Behavior is calm, cooperative. mg2 Pain: Denies pain. Neuro: Level of Consciousness is awake, alert, obeys commands, Oriented to person, place, time, situation. Cardiovascular: Capillary refill < 3 seconds Patient's skin is warm and dry. Respiratory: Airway is patent Respiratory effort is even, unlabored, Respiratory pattern is regular, symmetrical. Respiratory: Reports cough that is. GI: No signs and/or symptoms were reported involving the gastrointestinal system. : EENT: Reports nasal congestion. Derm: Skin is intact, is healthy with good turgor, Skin is pink, warm \T\ dry. normal. Musculoskeletal: Circulation, motion, and sensation intact. Capillary refill < 3 seconds. 13:21 Reassessment: Patient appears in no apparent distress at this time. Patient and/or mg2 family updated on plan of care and expected duration. Pain level reassessed. Vital Signs: 12:19 BP 123 / 77; Pulse 87; Resp 16; Temp 101.2(O); Pulse Ox 97% on R/A; Weight 102.06 kg; ss Height 6 ft. 4 in. (193.04 cm); Pain 2/10; 13:21 BP 107 / 52; Pulse 90; Resp 18; Temp 98.3(O); Pulse Ox 100% on R/A; mg2 12:19 Body Mass Index 27.39 (102.06 kg, 193.04 cm) ss ED Course: 12:03 Patient arrived in ED. as 12:11 Arcelia White FNP-C is PHCP. kb 12:11 All Pablo MD is Attending Physician. kb 12:19 Triage completed. ss 12:19 Arm band placed on right wrist. Patient placed in an exam room. ss 12:21 Victor Manuel Viera, RN is Primary Nurse. mg2 12:32 No provider procedures requiring assistance completed. Inserted saline lock: 20 gauge mg2 in left forearm, using aseptic technique. Blood collected. 12:33 Patient has correct armband on for positive identification. Pulse ox on. NIBP on. Door mg2 closed. 13:05 Chest Pa And Lat (2 Views) XRAY In Process Unspecified. EDMS 13:36 IV discontinued, intact, bleeding controlled, No redness/swelling at site. Pressure mg2 dressing applied. Administered Medications: 12:33 Drug: NS 0.9% 500 ml Route: IV; Rate: bolus; Site: left forearm; mg2 13:22 Follow up: Response: No adverse reaction; IV Status: Completed infusion; IV Intake: mg2 500ml 12:33 Drug: Tylenol 1000 mg Route: PO; mg2 13:22 Follow up: Response: No adverse reaction; Temperature is decreased mg2 13:16 Drug: Tamiflu 75 mg Route: PO; mg2 13:22 Follow up: Response: No adverse reaction mg2 Intake: 13:22 IV: 500ml; Total: 500ml. mg2 Outcome: 13:21 Discharge ordered by MD. mendes 13:36 Discharged to home via wheelchair, with family. mg2 13:36 Condition: stable 13:36 Discharge instructions given to patient, family, Instructed on discharge instructions, follow up and referral plans. medication usage, Demonstrated understanding of instructions, follow-up care, medications, Prescriptions given X 1. 13:36 Patient left the ED. mg2 Signatures: Dispatcher [employer] EDMS Arcelia White, HENRIETTA-C CENTRIFUGAL EXTRACTOR OPERATOR-Lee Ann Rodriguez Shelby, ANTOINETTE RN Victor Manuel Viera RN RN mg2 Corrections: (The following items were deleted from the chart) 13:22 13:21 Pulse 90bpm; Resp 18bpm; Pulse Ox 100% RA; Temp 98.3F Oral; mg2 mg2
[2019-11-29 13:44] VITALS: BP 107/52; TEMP 98.3; O2SAT 100
== END 2019-11-29 13:36 | disposition home or self-care (01) ==
LOC: ER 12:01
DX: J09.X2 Influenza due to identified novel influenza A virus with other respiratory manifestations (principal)
CPT/HCPCS: 85025; 80048; 36415; 87804 ×2; 71046; 96360; 99284; J7040

== ENCOUNTER 2020-10-13 06:53 | Emergency (ER) | payer OTHER, MEDICARE ==
[2020-10-13 08:13] LABS: Absolute Lymphocytes (CBC) 0.4 K/uL (0.7-4.9); Basophils % 0.4 % (0-1.3); Hematocrit 39.9 % (39.6-49.0); Lymphocytes % 3.3 % (15.3-44.8); MPV 9.9 fL (7.6-11.3); RBC Red Blood Cell Count 4.37 M/uL (4.33-5.43)
[2020-10-13 08:32] LABS: Potassium 3.9 mmol/L (3.5-5.1)
[2020-10-13 09:21] LABS: Blood Morphology Comment NOT SEEN (NOT SEEN); Dohle Bodies PRESENT; Platelet Estimate DECR
--- NOTE | 2020-10-13 09:55 | EDPHYS ---
Physician Documentation [facility] Name: Gary Rader Age: 74 yrs Sex: Male : 1945 Arrival Date: 10/13/2020 Time: 06:55 Bed 26 Private MD: ED Physician All Pablo HPI: 10/13 07:57 This 74 yrs old Male presents to ER via Ambulatory with complaints of Foot kdr Pain. 07:57 The patient presents with pain, that is acute. The complaints affect the left foot, kdr right foot. Context: The problem was sustained at home, resulted from The patient states that since he bought a new pair of boots, he has had heel pain in both feet that occasionally when he steps down on his feet, will increase/cause pain that shoots from his heels up his legs. He thinks that it is likely due to the new foot attire. His states that this morning, he was generally weak and had a hard time standing. Also, she was concerned that he may have a return of his prior episodes of cellulitis in his legs stating that they appeared to be red and warm., Mechanism of Injury: Unknown the patient can fully bear weight. Onset: The symptoms/episode began/occurred gradually, 4 day(s) ago, 4 days for heal pain. today for the weakness. Modifying factors: The symptoms are alleviated by nothing, the symptoms are aggravated by weight bearing, movement, wearing shoes. Associated signs and symptoms: The patient has no apparent associated signs or symptoms. Severity of symptoms: At their worst the symptoms were mild, in the emergency department the symptoms are unchanged. The patient has not experienced similar symptoms in the past. Last week, the patient had some blood work drawn by Dr. Carrero. Historical: - PMHx: 07:38 Atrial Fib; Diabetes - IDDM; Hypertension; dm5 - PSHx: 07:38 L knee replacement; R hip surgery; dm5 ROS: 07:57 Constitutional: Negative for fever, chills, and weight loss, Eyes: Negative for injury, kdr pain, redness, and discharge, Neck: Negative for injury, pain, and swelling, Cardiovascular: Negative for chest pain, palpitations, and edema, Respiratory: Negative for shortness of breath, cough, wheezing, and pleuritic chest pain, Abdomen/GI: Negative for abdominal pain, nausea, vomiting, diarrhea, and constipation, Back: Negative for injury and pain, : Negative for injury, bleeding, discharge, and swelling, Skin: Negative for injury, rash, and discoloration, Neuro: Negative for headache, weakness, numbness, tingling, and seizure activity. Psych: Negative for depression, anxiety, suicide ideation, homicidal ideation, and hallucinations, Allergy/Immunology: Negative for hives, rash, and allergies, Endocrine: Negative for neck swelling, polydipsia, polyuria, polyphagia, and marked weight changes, Hematologic/Lymphatic: Negative for swollen nodes, abnormal bleeding, and unusual bruising. 07:57 MS/extremity: Positive for pain, of the Posterior heel on both feet. Exam: 07:57 Constitutional: This is a well developed, well nourished patient who is awake, alert, kdr and in no acute distress. Head/Face: Normocephalic, atraumatic. Eyes: Pupils equal round and reactive to light, extra-ocular motions intact. Lids and lashes normal. Conjunctiva and sclera are non-icteric and not injected. Cornea within normal limits. Periorbital areas with no swelling, redness, or edema. Neck: Trachea midline, no thyromegaly or masses palpated, and no cervical lymphadenopathy. Supple, full range of motion without nuchal rigidity, or vertebral point tenderness. No Meningismus. Chest/axilla: Normal chest wall appearance and motion. Nontender with no deformity. No lesions are appreciated. Cardiovascular: Regular rate and rhythm with a normal S1 and S2. No gallops, murmurs, or rubs. Normal PMI, no JVD. No pulse deficits. Respiratory: Lungs have equal breath sounds bilaterally, clear to auscultation and percussion. No rales, rhonchi or wheezes noted. No increased work of breathing, no retractions or nasal flaring. Abdomen/GI: Soft, non-tender, with normal bowel sounds. No distension or tympany. No guarding or rebound. No evidence of tenderness throughout. Back: No spinal tenderness. No costovertebral tenderness. Full range of motion. MS/ Extremity: Pulses equal, no cyanosis. Neurovascular intact. Full, normal range of motion. Neuro: Awake and alert, GCS 15, oriented to person, place, time, and situation. Cranial nerves II-XII grossly intact. Motor strength 5/5 in all extremities. Sensory grossly intact. Cerebellar exam normal. Normal gait. Psych: Awake, alert, with orientation to person, place and time. Behavior, mood, and affect are within normal limits. 07:57 Skin: Appearance: Color: pink, bobby, pale, Temperature: normal temperature, Moisture: dry, petechiae, not noted, ecchymosis, not noted, flushing, not noted, diaphoresis is not appreciated, swelling, is not appreciated, Skin on both legs is dry and flaky. There is a reddened appearance to the anterior aspect of the left tibia but patient states that this is normal for him. Current, there is no obvious infection by exam though is concerned that the skin temp is warm. On my exam, the skin has a normal temperature. Vital Signs: 07:35 BP 129 / 71; Pulse 100; Resp 20; Temp 98.5; Pulse Ox 100% on R/A; Pain 0/10; dm5 MDM: 09:55 Patient medically screened. kdr 14:40 Data reviewed: vital signs, nurses notes, lab test result(s). Counseling: I had a kdr detailed discussion with the patient and/or guardian regarding: the historical points, exam findings, and any diagnostic results supporting the discharge/admit diagnosis, lab results, the need for outpatient follow up. 10/13 07:45 Order name: CBC with Diff kdr 10/13 07:45 Order name: Chem 7 kdr 10/13 08:16 Order name: CBC with Automated Diff; Complete Time: 09:54 EDMS 10/13 08:30 Order name: Glucose, Ancillary Testing; Complete Time: 09:03 EDMS 10/13 08:32 Order name: Basic Metabolic Panel; Complete Time: 09:03 EDMS 10/13 07:45 Order name: FSBS; Complete Time: 08:20 kdr 10/13 08:05 Order name: IV Saline Lock; Complete Time: 08:05 em Administered Medications: 10:04 Drug: KeFLEX 500 mg Route: PO; iw Disposition: 10/13/20 09:55 Discharged to Home. Impression: Weakness, Cellulitis of left lower limb. - Condition is Stable. - Discharge Instructions: Cellulitis, Adult, [id number], Weakness, [id number]. - Prescriptions for Keflex 500 mg Oral Capsule - take 1 capsule by ORAL route every 6 hours for 7 days; 28 capsule. - Medication Reconciliation Form, Thank You Letter, Antibiotic Education form. - Follow up: Private Physician; When: 1 - 2 days; Reason: If symptoms return, Further diagnostic work-up, Recheck today's complaints, Continuance of care, Re-evaluation by your physician. - Problem is new. - Symptoms have improved. Signatures: Dispatcher [employer] Edel Dolan, RN RN dm5 All Pablo MD MD [facility] Denny Teran RN RN em Felicia Vitale RN RN iw Corrections: (The following items were deleted from the chart) 10: 09:55 10/13/2020 09:55 Discharged to Home. Impression: Weakness; Cellulitis of left iw lower limb. Condition is Stable. Forms are Medication Reconciliation Form, Thank You Letter, Antibiotic Education, Prescription Opioid Use. Follow up: Private Physician; When: 1 - 2 days; Reason: If symptoms return, Further diagnostic work-up, Recheck today's complaints, Continuance of care, Re-evaluation by your physician. Problem is new. Symptoms have improved. kdr
--- NOTE | 2020-10-13 09:55 | ER ---
Nurse's Notes [facility] Name: Gary Rader Age: 74 yrs Sex: Male : 1945 Arrival Date: 10/13/2020 Time: 06:55 Bed 26 Private MD: Diagnosis: Weakness;Cellulitis of left lower limb Presentation: 10/13 07:35 Chief complaint: Patient states: bilateral foot pain that starts in heel and shoots up dm5 leg. Started yesterday. Intermittent. No pain at this time. Wound noted to left foot that has been there for about 1 week. Coronavirus screen: Client denies travel out of the [place] in the last 14 days. At this time, the client does not indicate any symptoms associated with coronavirus-19. Ebola Screen: Patient negative for fever greater than or equal to 101.5 degrees Fahrenheit, and additional compatible Ebola Virus Disease symptoms Patient denies exposure to infectious person. Patient denies travel to an Ebola-affected area in the 21 days before illness onset. No symptoms or risks identified at this time. Initial Sepsis Screen: Does the patient meet any 2 criteria? HR > 90 bpm. No. Patient's initial sepsis screen is negative. Does the patient have a suspected source of infection? Yes: Skin breakdown/wound. Risk Assessment: Do you want to hurt yourself or someone else? Patient reports no desire to harm self or others. Onset of symptoms was October 12, 2020. 07:35 Method Of Arrival: Ambulatory dm5 07:35 Acuity: KAREL 4 dm5 Historical: - PMHx: 07:38 Atrial Fib; Diabetes - IDDM; Hypertension; dm5 - PSHx: 07:38 L knee replacement; R hip surgery; dm5 Screenin:55 Abuse screen: Denies threats or abuse. Denies injuries from another. Nutritional em screening: No deficits noted. Tuberculosis screening: No symptoms or risk factors identified. Fall Risk No fall in past 12 months (0 pts). Secondary diagnosis (15 points) impaired mobility, IV access (20 points). Ambulatory Aid- Crutches/Cane/Walker (15 pts). Gait- Impaired (20 pts.). Mental Status- Oriented to own ability (0 pts). Total Chen Fall Scale indicates High Risk Score (45 or more points). Fall prevention measures have been instituted. Side Rails Up X 2 Placed Close to Nursing Station Family Present and informed to notify staff if the need to leave the bedside. Assessment: 07:55 General: Appears in no apparent distress. uncomfortable. Pain: Complains of pain in em right foot and left foot Pain currently is 6 out of 10 on a pain scale. Neuro: Level of Consciousness is awake, alert, obeys commands. Respiratory: Airway is patent Respiratory effort is even, unlabored, relaxed. Derm: Skin is pink, warm \T\ dry. Wound noted dorsum of left foot. Vital Signs: 07:35 BP 129 / 71; Pulse 100; Resp 20; Temp 98.5; Pulse Ox 100% on R/A; Pain 0/10; dm5 ED Course: 06:55 Patient arrived in ED. cl3 07:30 All Pablo MD is Attending Physician. kdr 07:34 Edel Flores, RN is Primary Nurse. dm5 07:37 Triage completed. dm5 07:55 Patient has correct armband on for positive identification. Side rails up X2. em 07:55 No provider procedures requiring assistance completed. Inserted saline lock: 20 gauge em in right antecubital area, using aseptic technique. Blood collected. 10:09 IV discontinued, intact, bleeding controlled, No redness/swelling at site. Pressure iw dressing applied. Administered Medications: 10:04 Drug: KeFLEX 500 mg Route: PO; iw Outcome: 09:55 Discharge ordered by . kdr 10:09 Discharged to home via wheelchair, with family. iw 10:09 Condition: good 10:09 Discharge instructions given to patient, Instructed on discharge instructions, follow up and referral plans. medication usage, Demonstrated understanding of instructions, follow-up care, medications, Prescriptions given X 1. 10:09 Patient left the ED. iw Signatures: Edel Flores, RN RN dm5 All Pablo MD MD kdr Munoz, Edgar, RN RN em Felicia Vitale RN RN Dalton Modi cl3
[2020-10-13] MEDS ORDERED: CEPHALEXIN 250 MG CAP ONE (10:17)
[2020-10-18 15:24] VITALS: BP 129/71; TEMP 98.5; O2SAT 100
== END 2020-10-13 10:09 | disposition home or self-care (01) ==
LOC: ER 06:53
DX: L03.116 Cellulitis of left lower limb (principal); I10 Essential (primary) hypertension; E11.9 Type 2 diabetes mellitus without complications; I48.91 Unspecified atrial fibrillation
CPT/HCPCS: 36415; 80048; 82947; 85025; 99284

== ENCOUNTER 2020-10-16 08:44 | Inpatient (IN) | payer OTHER, MEDICARE ==
[2020-10-16 10:14] LABS: Basophils % 0.4 % (0-1.3); Hematocrit 40.1 % (39.6-49.0); Lymphocytes % 11.7 % (15.3-44.8); MPV 10.3 fL (7.6-11.3)
[2020-10-16 10:18] LABS: Protime INR 1.58
[2020-10-16 10:24] LABS: Potassium 3.6 mmol/L (3.5-5.1)
--- NOTE | 2020-10-16 11:05 | ER ---
Nurse's Notes [facility] Name: Gary Rader Age: 74 yrs Sex: Male : 1945 Arrival Date: 10/16/2020 Time: 08:45 Bed 7 Private MD: John Varela T Diagnosis: Cellulitis and acute lymphangitis of other parts of limb-left lower leg Presentation: 10/16 09:05 Chief complaint: Spouse and/or significant other states: "he was seen here on aa5 and diagnosed with cellulitis of his left leg but last night his leg just got more red and it's worse". 09:05 Coronavirus screen: Client denies travel out of the [place] in the last 14 days. At this aa5 time, the client does not indicate any symptoms associated with coronavirus-19. Ebola Screen: Patient negative for fever greater than or equal to 101.5 degrees Fahrenheit, and additional compatible Ebola Virus Disease symptoms. Initial Sepsis Screen: Does the patient meet any 2 criteria? No. Patient's initial sepsis screen is negative. Does the patient have a suspected source of infection? Yes:. Risk Assessment: Do you want to hurt yourself or someone else? Patient reports no desire to harm self or others. Onset of symptoms was October 2020. 09:05 Acuity: KAREL 3 aa5 09:05 Method Of Arrival: Ambulatory aa5 Historical: - Allergies: 09:14 No Known Allergies; aa5 - Home Meds: 11:52 metoprolol tartrate 50 mg Oral tab 1 tab 2 times per day [Active]; Levemir FlexTouch iw 100 unit/mL (3 mL) subcutaneous inpn 30 unit daily [Active]; - PMHx: 09:14 Atrial Fib; Diabetes - IDDM; Hypertension; aa5 - PSHx: 09:14 L knee replacement; R hip surgery; aa5 - Immunization history:: Adult Immunizations unknown. - Social history:: Smoking status: Patient denies any tobacco usage or history of. Screenin:56 Abuse screen: Denies threats or abuse. Denies injuries from another. Nutritional jl7 screening: No deficits noted. Tuberculosis screening: No symptoms or risk factors identified. Fall Risk IV access (20 points). Total Chen Fall Scale indicates No Risk (0-24 pts). Assessment: 09:56 General: Appears in no apparent distress. uncomfortable, Behavior is calm, cooperative, jl7 appropriate for age. Pain: Denies pain. Neuro: Level of Consciousness is awake, alert, obeys commands, Oriented to person, place, time, situation. Cardiovascular: Patient's skin is warm and dry. Respiratory: Airway is patent Respiratory effort is even, unlabored, Respiratory pattern is regular, symmetrical. Derm: Skin is pink, warm \\T\\ dry. Wound noted left foot Wound is swelling, redness noted from foot up to just past the left calf. 11:25 Reassessment: Patient appears in no apparent distress at this time. Patient and/or iw family updated on plan of care and expected duration. Pain level reassessed. Patient is alert, oriented x 3, equal unlabored respirations, skin warm/dry/pink. Patient denies pain at this time. Vital Signs: 09:05 BP 133 / 84; Pulse 74; Resp 16 S; Temp 98.5(O); Pulse Ox 99% on R/A; aa5 10:00 BP 121 / 82; Pulse 84; Resp 17; Pulse Ox 99% ; Pain 0/10; jl7 ED Course: 08:45 Patient arrived in ED. ag5 08:46 John Varela MD is Private Physician. ag5 09:05 Arm band placed on Patient placed in an exam room, on a stretcher. aa5 09:07 Hayden Ugarte PA is PHCP. cp 09:07 Hayden Richards MD is Attending Physician. cp 09:12 Triage completed. aa5 09:36 Felicia Vitale, RN is Primary Nurse. iw 09:45 First set of blood cultures drawn by me. jl7 09:52 Inserted saline lock: 20 gauge in right wrist, using aseptic technique. Blood collected.jl7 09:52 Initial lab(s) drawn, by ok, sent to lab. Second set of blood cultures drawn by ok. jl7 09:56 Patient has correct armband on for positive identification. Bed in low position. Call jl7 light in reach. Side rails up X 1. Pulse ox on. NIBP on. 10:36 US Extremity Venous Unilateral Ltd In Process Unspecified. EDMS 11:03 Ultrasound completed. Patient tolerated well. Notified ED Physician selin. sg3 11:04 Armando Amaya MD is Hospitalizing Provider. cp 12:52 No provider procedures requiring assistance completed. Patient admitted, IV remains in jl7 place. intact, No redness/swelling at site. Administered Medications: 11:23 Drug: LevaQUIN 750 mg Volume: 150 ml; Route: IVPB; Infused Over: 90 mins; Site: right iw wrist; 12:51 Follow up: Response: No adverse reaction; IV Status: Completed infusion jl7 12:51 Drug: vancoMYCIN 1 grams Route: IVPB; Infused Over: 2 hrs; Site: right wrist; jl7 12:51 Follow up: IV Status: Infusion continued upon admission jl7 Outcome: 11:05 Decision to Hospitalize by Provider. cp 12:52 Admitted to Med/surg accompanied by tech, via wheelchair, room 213, with chart, Report jl7 called to ANTOINETTE Eaton 12:52 Condition: stable 12:52 Discharge instructions given to patient, Instructed on the need for admit, Demonstrated understanding of instructions. 12:54 Patient left the ED. jl7 Signatures: Dispatcher [employer] EDFelicia Yarbrough, ANTOINETTE CURRY Maritza Sage RN RN aa5 Hayden Ugarte, PA PA Daisha Frye RN RN jl7 Purnima Pace 3 Jamar Rowan 5
--- NOTE | 2020-10-16 11:06 | EDPHYS ---
Physician Documentation [facility] Name: Gary Rader Age: 74 yrs Sex: Male : 1945 Arrival Date: 10/16/2020 Time: 08:45 Bed 7 Private MD: John Varela T ED Physician Hayden Richards HPI: 10/16 09:13 This 74 yrs old Male presents to ER via Ambulatory with complaints of Leg cp Problem. 09:13 The patient presents with swelling, tenderness, erythema. cp 09:13 The complaints affect the left lower leg. Onset: The symptoms/episode began/occurred cp last week. The patient has experienced similar episodes in the past, a few times. The patient has been recently seen at the [facility] Emergency Department, last week, for similar complaints was given a prescription for antibiotics. Historical: - Allergies: 09:14 No Known Allergies; aa5 - Home Meds: 11:52 metoprolol tartrate 50 mg Oral tab 1 tab 2 times per day [Active]; Levemir FlexTouch iw 100 unit/mL (3 mL) subcutaneous inpn 30 unit daily [Active]; - PMHx: 09:14 Atrial Fib; Diabetes - IDDM; Hypertension; aa5 - PSHx: 09:14 L knee replacement; R hip surgery; aa5 - Immunization history:: Adult Immunizations unknown. - Social history:: Smoking status: Patient denies any tobacco usage or history of. ROS: 09:20 MS/extremity: Negative for injury or acute deformity, decreased range of motion, cp paresthesias. 09:20 Constitutional: Negative for body aches, chills, fever, poor PO intake. cp 09:20 Cardiovascular: Negative for chest pain. 09:20 Respiratory: Negative for shortness of breath, wheezing. 09:20 Abdomen/GI: Negative for abdominal pain, nausea, vomiting, and diarrhea. 09:20 Skin: Positive for erythema, swelling, of the left lower leg. 09:20 Neuro: Negative for altered mental status. 09:20 All other systems are negative. Exam: 09:25 Constitutional: The patient appears in no acute distress, alert, awake, cp non-diaphoretic, non-toxic, well developed, well nourished. 09:25 Head/Face: Normocephalic, atraumatic. cp 09:25 Chest/axilla: Inspection: normal. 09:25 Cardiovascular: Rate: normal. 09:25 Respiratory: the patient does not display signs of respiratory distress, Respirations: normal, no use of accessory muscles, no retractions. 09:25 Skin: circumferential erythema noted with mild swelling to left lower leg, superficial wound with mild colored drainage noted medial dorsum left foot. 09:25 Neuro: Orientation: to person, place \T\ time. Mentation: is normal. Vital Signs: 09:05 BP 133 / 84; Pulse 74; Resp 16 S; Temp 98.5(O); Pulse Ox 99% on R/A; aa5 10:00 BP 121 / 82; Pulse 84; Resp 17; Pulse Ox 99% ; Pain 0/10; jl7 MDM: 09:12 Patient medically screened. [facility] 09:30 Differential diagnosis: sepsis, cellulitis, DVT. 11:00 Data reviewed: vital signs, nurses notes, lab test result(s), radiologic studies, ultrasound, I have discussed the patient's presentation/case with the attending Emergency Department Physician; and as a result, I will admit patient. 11:00 Physician consultation: Armando Amaya MD was called at 11:00, was contacted at 11:00, cp regarding admission, to the medical/surgical unit. patient's condition, and will see patient in ED, shortly. 10/16 09:16 Order name: CBC with Diff; Complete Time: 10:40 10/16 10:40 Interpretation: Normal except: WBC 8.6; PLT 136; NANCY% 75.5; LYM% 11.7. 10/16 09:16 Order name: BMP; Complete Time: 10:40 12/13 10:40 Interpretation: Normal except: GLUC 183; BUN 23; GFR 75. 10/16 09:16 Order name: Lactate; Complete Time: 10:40 10/16 09:16 Order name: Procalcitonin; Complete Time: 10:58 12/13 10:58 Interpretation: Abnormal: Procalcitonin 1.84. 10/16 09:16 Order name: Blood Culture Adult (2) 10/16 09:16 Order name: PT-INR; Complete Time: 10:40 10/16 09:16 Order name: US Extremity Venous Unilateral Ltd cp 10/16 09:16 Order name: IV; Complete Time: 09:56 cp 12 09:16 Order name: Ptt, Activated; Complete Time: 10:40 cp 12 09:16 Order name: Wound Culture cp 10/16 11:25 Order name: Diet Ada 2000 Albino; Complete Time: 11:25 iw Administered Medications: 11:23 Drug: LevaQUIN 750 mg Volume: 150 ml; Route: IVPB; Infused Over: 90 mins; Site: right iw wrist; 12:51 Follow up: Response: No adverse reaction; IV Status: Completed infusion jl7 12:51 Drug: vancoMYCIN 1 grams Route: IVPB; Infused Over: 2 hrs; Site: right wrist; jl7 12:51 Follow up: IV Status: Infusion continued upon admission jl7 Disposition: 11:20 Chart complete. cp 17:50 Co-signature as Attending Physician, Hayden Richards MD I agree with the assessment and tirso plan of care. Disposition: 10/16/20 11:05 Hospitalization ordered by Armando Amaya for Inpatient Admission. Preliminary diagnosis is Cellulitis and acute lymphangitis of other parts of limb - left lower leg. - Bed requested for Telemetry/MedSurg (Inpatient). - Status is Inpatient Admission. jl7 - Condition is Stable. - Problem is an ongoing problem. - Symptoms have worsened. Signatures: Dispatcher [employer] EDHayden Okeefe MD MD cha Williams, Irene, RN ANTOINETTE Maritza Sage RN RN aa5 Hayden Ugarte PA PA cp Daisha Tinoco RN RN jl7 Gurdeep Sales RN RN ja1 Corrections: (The following items were deleted from the chart) 12: 11:05 Hospitalization Ordered by Armando Amaya MD for Inpatient Admission. Preliminary ja1 diagnosis is Cellulitis and acute lymphangitis of other parts of limb - left lower leg. Bed requested for Telemetry/MedSurg (Inpatient). Status is Inpatient Admission. Condition is Stable. Problem is an ongoing problem. Symptoms have worsened. cp 12:54 12:27 10/16/2020 11:05 Hospitalization Ordered by Armnado Amaya MD for Inpatient jl7 Admission. Preliminary diagnosis is Cellulitis and acute lymphangitis of other parts of limb - left lower leg. Bed requested for Telemetry/MedSurg (Inpatient). Status is Inpatient Admission. Condition is Stable. Problem is an ongoing problem. Symptoms have worsened. ja1
[2020-10-16] MEDS ORDERED: Levofloxacin 750mg IV 750 MG/150 ML BAG IV ONE (11:30)
[2020-10-16] MEDS ORDERED: VANCOMYCIN/NS 1 gm 1 GM/250 ML BAG IV ONE ×2 (11:30)
--- NOTE | 2020-10-16 11:46 | P.HP ---
Certification for Inpatient Patient admitted to: Inpatient With expected LOS: >2 Midnights Practitioner: I am a practitioner with admitting privileges, knowledge of patient current condition, hospital course, and medical plan of care. Services: Services provided to patient in accordance with Admission requirements found in Title 42 Section 412.3 of the Code of Federal Regulations Patient History Date of Service: 10/16/20 Reason for admission: LLE cellulitis History of Present Illness: 74-year-old male, PMH: Atrial fibrillation, ID DM 2, HTN, who left foot bone spur, presents to the ED due to worsening erythema and warmth of his left lower leg. It is he presented to the ED a few days ago and was given a prescription for Keflex. He reports doing okay until yesterday when everything began to get worse. He denies any pain. He states this all began when he started wearing new boots that are a little tight. This caused an abrasion that turned into a small cut in the skin overlying the bone spur on top of his left foot. The redness then began to spread upwards. The redness is no on the back of his leg which is new. In the ED, vitals were stable, no leukocytosis (improved from recent ED presentation), elevated pro calcitonin. Venous Doppler negative for DVT on the left leg. Allergies No Known Allergies Allergy (Verified 11/10/19 08:44) Home Medications: Dabigatran Etexilate Mesylate [Pradaxa] 150 mg PO BID 10/16/20 Insulin Detemir [Levemir Flextouch] 30 unit SQ DAILY 10/16/20 Metoprolol Tartrate 50 mg PO BID 10/16/20 - Past Medical/Surgical History Diabetic: Yes -: Afib -: diabetes/IDDM -: HTN -: high cholesterol -: CAD -: hip sx right -: achilles tendon sx right side -: left knee replacement -: middle toe sx - Family History Family History: Reviewed- Non-Contributory - Social History Smoking Status: Former smoker Alcohol use: Yes CD- Drugs: No Caffeine use: Yes Place of Residence: Home Review of Systems 10-point ROS is otherwise unremarkable Physical Examination - Physical Exam General: Alert, In no apparent distress, Oriented x3 HEENT: Sclerae nonicteric Respiratory: Clear to auscultation bilaterally, Normal air movement Cardiovascular: Regular rate/rhythm, Edema (1+ on LLE) Gastrointestinal: Soft and benign, Non-distended, No tenderness Integumentary: Other (Warmth, erythema, and swelling of left lower extremity, and erythema almost fully circumferential from a just above the ankle to knee. Small laceration noted on dorsum of left foot overlying bone spur. No purulent drainage, slight erythema around the laceration) Neurological: Normal speech, Normal affect - Studies Laboratory Data (last 24 hrs) 10/16/20 09:52: PT 18.5 H, INR 1.58, APTT 42.3 H 10/16/20 09:52: Sodium 137, Potassium 3.6, BUN 23 H, Creatinine 0.97, Glucose 183 H 10/16/20 09:52: WBC 8.6 D, Hgb 13.6, Hct 40.1, Plt Count 136 L D Microbiology Data (last 24 hrs): 10/16/20 10:00 Wound - Left Foot Gram Stain - Final Assessment and Plan - Advance Directives Does patient have a Living Will: No Does patient have a Durable POA for Healthcare: No Physician Review Additional Text: LLE cellulitis, failed outpatient therapy AFib IDDM2 HTN CAD HLD Failed Keflex Received vancomycin in the ED, will continue for strep and staph coverage Patient with significant erythema and swelling of the left lower extremity Will obtain x-ray left foot to evaluate the bone spur, possible osteo, however this infection has only been for a few days AFib, and DM 2, HTN all appear stable, will continue home medications at this time Sliding scale insulin May need podiatry vs surgery consult, does not appear to have any abscess at this time Code: Full Diet: Diabetic VTE prophylaxis: Home Pradaxa Dispo: Anticipate dc home in~ 48 hr Time Spent Managing Pts Care (In Minutes): 55
--- NOTE | 2020-10-16 11:58 | RAD REPORT ---
EXAM DESCRIPTION: US - Extremity Venous Uni Ltd - 10/16/2020 10:36 am CLINICAL HISTORY: SWELLING COMPARISON: September 2013 TECHNIQUE: Real-time sonographic evaluation of the left lower extremity deep venous system was perfo rmed. FINDINGS: Normal compressibility, flow augmentation, phasic flow and spontaneous flow are identified in the left lower extremity common femoral, superficial femoral, popliteal and posterior tibial vein s. No intraluminal filling defects seen. IMPRESSION: No DVT in the left lower extremity.
[2020-10-16 13:38] VITALS: BMI 27.8
[2020-10-16] MEDS: INSULIN -REGULAR HUMAN 50 UNIT/0.5 ML ML SQ SCH ×2 (16:30→20:30)
--- NOTE | 2020-10-16 19:22 | RAD REPORT ---
EXAM DESCRIPTION: RAD - Foot Left 3 View - 10/16/2020 6:22 pm CLINICAL HISTORY: dorsal foot bone spur w/ overlying cellulitis, left foot pain COMPARISON: Foot Left 3 View dated 07/15/2014 FINDINGS: No fracture, dislocation or periosteal reaction. No acute or destructive bony process. Sm all bone spurs present similar to comparison. Large bone fragment at the Achilles attachment also unc hanged. Degenerative change present at the tibiotalar joint space. Patient has advanced degenerative change a t the medial cuneiform bone articulation with the first metatarsal. This has progressed since 2013. L ess prominent degenerative change present at the second metatarsal articulation with the middle cunei form bone. Lateral cuneiform and cuboid degenerative change with metatarsals less pronounced. No air or foreign body in the soft tissues. IMPRESSION: Small plantar spur with no air, calcification or foreign body in the adjacent soft tissu es. Patient has progressive degenerative change at the tarsal-metatarsal articulations since 2013. No acu te or destructive process.
[2020-10-16] MEDS: DABIGATRAN 150 MG CAP PO SCH (20:23)
[2020-10-16] MEDS: METOPROLOL TAR 50 MG TAB PO SCH (20:23)
[2020-10-16] MEDS: VANCOMYCIN 2 GM in NA CHLORIDE 0.9% 500 ML IVPB SCH (20:24)
[2020-10-16] MEDS: ACETAMINOPHEN 500 MG TAB PO PRN (23:23)
[2020-10-17 03:19] LABS: Urine Appearance CLEAR; Urine Bilirubin NEGATIVE (NEG); Urine Blood NEGATIVE (NEG); Urine Color YELLOW; Urine Glucose TRACE (NEG); Urine Protein NEGATIVE (NEG); Urine Specific Gravity 1.025 (1.005-1.030); Urine Urobilinogen 0.2 mg/dL (0.2-1.0); Urine pH 5.5 (5.0-7.0)
[2020-10-17 03:30] LABS: Urine Microscopic Reflex NO UMIC
[2020-10-17 04:52] LABS: Absolute Lymphocytes (CBC) 1.8 K/uL (0.7-4.9); Basophils % 0.7 % (0-1.3); Hematocrit 38.4 % (39.6-49.0); Lymphocytes % 22.2 % (15.3-44.8); MPV 9.9 fL (7.6-11.3); RBC Red Blood Cell Count 4.17 M/uL (4.33-5.43)
[2020-10-17 04:54] LABS: Phosphorus 3.9 mg/dL (2.5-4.9); Potassium 4.7 mmol/L (3.5-5.1)
[2020-10-17] MEDS: INSULIN -REGULAR HUMAN 50 UNIT/0.5 ML ML SQ SCH ×4 (07:30→20:08)
[2020-10-17] MEDS: DABIGATRAN 150 MG CAP PO SCH ×2 (08:10→20:07)
[2020-10-17] MEDS: METOPROLOL TAR 50 MG TAB PO SCH ×2 (08:10→20:07)
[2020-10-17] MEDS: INSULIN GLARGINE 100 UNITS/ML SQ SCH (08:11)
[2020-10-17] MEDS: VANCOMYCIN 2 GM in NA CHLORIDE 0.9% 500 ML IVPB SCH ×2 (08:11→21:03)
--- NOTE | 2020-10-17 08:42 | P.CNS ---
Date of Consult: 10/17/20 Chief Complaint: LLE cellulitis Allergies No Known Allergies Allergy (Verified 11/10/19 08:44) Home Medications: Dabigatran Etexilate Mesylate [Pradaxa] 150 mg PO BID 10/16/20 Insulin Detemir [Levemir Flextouch] 30 unit SQ DAILY 10/16/20 Metoprolol Tartrate 50 mg PO BID 10/16/20 - Past Medical/Surgical History Diabetic: Yes -: Afib -: diabetes/IDDM -: HTN -: high cholesterol -: CAD -: CAD -: Afib -: hip sx right -: achilles tendon sx right side -: left knee replacement -: middle toe sx - Social History Smoking Status: Former smoker Alcohol use: Yes CD- Drugs: No Caffeine use: Yes Place of Residence: Home Review of Systems 10-point ROS is otherwise unremarkable Physical Examination Temp Pulse Resp BP Pulse Ox 97.0 F 71 18 131/78 99 10/17/20 04:00 10/17/20 08:10 10/17/20 04:00 10/17/20 08:10 10/17/20 04:00 General: Alert, In no apparent distress, Oriented x3 Cardiovascular: No edema, Abnormal pulses Capillary refill: <2 Seconds Musculoskeletal: No clubbing, No swelling, No contractures, No erythema, No te nderness, No warmth, Other ([place] prominence left first metatarsal cuneiform joint) Integumentary: Other (ulceration/abrasion left 1st metatarsal cunieform joint dorsally. Minimal erythema, no drainage, no purulence, no pain on palpation. Scab formation present) Neurological: Sensation intact Laboratory Data (last 24 hrs) 10/16/20 09:52: PT 18.5 H, INR 1.58, APTT 42.3 H 10/16/20 09:52: Sodium 137, Potassium 3.6, BUN 23 H, Creatinine 0.97, Glucose 183 H 10/16/20 09:52: WBC 8.6 D, Hgb 13.6, Hct 40.1, Plt Count 136 L D - Problems (1) Ulcer of foot due to diabetes Current Visit: No Status: Acute Conclusions/Impression: Bactroban to wound daily with gauze dressing. Patient is wanting to possibly have dorsal foot spur removed. I discussed with the patient that removing the spur alone would lead to probably pain in area as range of motion would increase resulting in grinding of 1st metatarsal cuneiform joint due to djd. Discussed possible fusion of the first metcuneiform joint but would recommend arterial doppler to evaluate vascularity. Physician Review: Patient Assessed, Agree with Above Assessment and Plan
--- NOTE | 2020-10-17 11:11 | P.PN ---
Subjective Date of Service: 10/17/20 Chief Complaint: LLE cellulitis Subjective: Improving (Patient reports swelling and redness has improved a little bit this morning. Denies pain Otherwise feeling well. No acute events overnight) Review of Systems 10-point ROS is otherwise unremarkable Physical Examination - Vital Signs Temperature: 97.3 F Blood Pressure: 131/78 Pulse: 71 Respirations: 15 Pulse Ox (%): 100 - Physical Exam General: Alert, In no apparent distress HEENT: Sclerae nonicteric Respiratory: Other (Breathing comfortably on room air) Cardiovascular: Irregular heart rate/rhythm Gastrointestinal: Soft and benign, No tenderness Integumentary: Erythema (LLE from just above the ankle to the knee, less pronounced this morning, involving approximately the same area) Neurological: Normal speech - Studies Microbiology Data (last 24 hrs): 10/16/20 10:00 Wound - Left Foot Gram Stain - Final Assessment & Plan Physician Review Additional Text: LLE cellulitis, failed outpatient therapy AFib IDDM2 HTN CAD HLD Failed outpatient therapy with a few days of Keflex Received vancomycin in the ED, will continue for strep and staph coverage Erythema and swelling improved this morning compared to yesterday, still fairly significant involving most of lower legs X-ray obtained, reviewed degenerative changes, +spur. Podiatry, Dr. Phillip consulted to eval R dorsal bony spur, and wound care AFib, and DM 2, HTN all appear stable, continue home insulin/medications at this time Sliding scale insulin Code: Full Diet: Diabetic VTE prophylaxis: Home Pradaxa Dispo: Anticipate dc home tomorrow if continues to improve Time Spent Managing Pts Care (In Minutes): 35
[2020-10-17] MEDS: MUPIROCIN 2% OINT 22GM TUBE TOP SCH ×2 (11:45→20:08)
--- NOTE | 2020-10-17 19:12 | RAD REPORT ---
EXAM DESCRIPTION: US - Lower Extremity Arterial Bilat - 10/17/2020 6:42 pm CLINICAL HISTORY: pvd Leg pain COMPARISON: No comparisons TECHNIQUE: Bilateral lower extremity arterial Doppler examination was performed with waveform tracin g and ankle brachial pressure measurements. FINDINGS: Symmetric brachial pressure measurements are noted. Triphasic and biphasic waveforms are seen throughout the right lower extremity arterial system. Predo minant monophasic waveform suspected involving the left lower extremity arterial system. Right ankle brachial index measures 1.0, normal. Left ankle brachial index measures 1.0, normal. IMPRESSION: Monophasic waveforms throughout left lower extremity arterial system suggests an inflow stenosis.
[2020-10-17] MEDS: ACETAMINOPHEN 500 MG TAB PO PRN (20:12)
[2020-10-18 04:29] LABS: Potassium 3.9 mmol/L (3.5-5.1)
[2020-10-18] MEDS: INSULIN -REGULAR HUMAN 50 UNIT/0.5 ML ML SQ SCH ×2 (07:30→11:30)
[2020-10-18] MEDS ORDERED: POTASSIUM CL SA 10 MEQ TAB PO ONE (08:00)
[2020-10-18] MEDS: VANCOMYCIN 2 GM in NA CHLORIDE 0.9% 500 ML IVPB SCH (08:46)
[2020-10-18] MEDS: METOPROLOL TAR 50 MG TAB PO SCH (08:47)
[2020-10-18] MEDS: DABIGATRAN 150 MG CAP PO SCH (08:47)
[2020-10-18] MEDS: INSULIN GLARGINE 100 UNITS/ML SQ SCH (08:48)
[2020-10-18] MEDS: MUPIROCIN 2% OINT 22GM TUBE TOP SCH (08:48)
[2020-10-18 10:34] VITALS: O2SAT 98
[2020-10-18] MEDS: ACETAMINOPHEN 500 MG TAB PO PRN (12:22)
[2020-10-18 12:38] VITALS: BP 148/81; TEMP 97.4
--- NOTE | 2020-10-18 13:46 | P.PN ---
Date of Service: 10/18/20 Advanced Directive
--- NOTE | 2020-10-18 13:55 | P.DS ---
Admission Date: 10/16/20 Discharge Date: 10/18/20 Disposition: ROUTINE DISCHARGE Discharge Condition: FAIR Reason for Admission: LLE cellulitis Consultations: Podiatry-Dr. Phillip. - Problems (1) Venous stasis dermatitis of left lower extremity Current Visit: Yes Status: Acute (2) Afib Current Visit: No Status: Acute (3) Diabetes mellitus Current Visit: No Status: Acute (4) Ulcer of foot due to diabetes Current Visit: No Status: Acute Brief History of Present Illness: 74-year-old gentleman with a history of diabetes mellitus, bone spur at the head of the left 1st metatarsal presented emergency department with a complaint of increased redness of the left leg and abrasive wound on the bone spur. Patient was initially prescribed Keflex which did not improve his symptoms. Venous Doppler of the left lower extremity was negative for DVT. Patient was admitted for further management of cellulitis. Hospital Course: Patient admitted to the medical floor and treated with IV vancomycin. He was encouraged to keep his legs elevated for venous stasis dermatitis. Patient was seen in consultation by podiatry-Dr. Phillip. Patient requested that the bone spur in the removed. Dr. Phillip recommended fusion surgery rather. Arterial Doppler of the lower extremities were performed and it demonstrated some stenosis in vessels throughout the lower extremity. Case was discussed with Dr. Phillip hold follow the patient in the office for further discussion regarding fusion surgery. Patient is prescribed oral doxycycline and Augmentin to continue treatment for possible cellulitis of the left lower extremity. Vital Signs/Physical Exam: Temp Pulse Resp BP Pulse Ox 97.4 F 82 16 148/81 H 98 10/18/20 12:00 10/18/20 12:10/18/20 12:10/18/20 12:10/18/20 12:00 General: Alert, In no apparent distress HEENT: Mucous membr. moist/pink Neck: Supple Respiratory: Clear to auscultation bilaterally, Normal air movement Cardiovascular: No edema, Regular rate/rhythm, Normal S1 S2 Gastrointestinal: Soft and benign, Non-distended (Venostasis dermatitis) Integumentary: Skin breakdown (On bone spur at dorsal-the medial aspect of the right foot adjacent to the 1st metatarsal head.), Other (Venous stasis dermatitis of the left lower extremity) Neurological: Normal strength at 5/5 x4 extr Laboratory Data at Discharge: WBC 8.1 K/uL (4.3-10.9) 10/17/20 03:55 Hgb 12.9 g/dL (13.6-17.9) L 10/17/20 03:55 Hct 38.4 % (39.6-49.0) L 10/17/20 03:55 Plt Count 132 K/uL (152-406) L 10/17/20 03:55 PT 18.5 SECONDS (9.5-12.5) H 10/16/20 09:52 INR 1.58 10/16/20 09:52 APTT 42.3 SECONDS (24.3-36.9) H 10/16/20 09:52 Sodium 140 mmol/L (136-145) 10/18/20 03:50 Potassium 3.9 mmol/L (3.5-5.1) 10/18/20 03:50 BUN 18 mg/dL (7-18) 10/18/20 03:50 Creatinine 0.91 mg/dL (0.55-1.3) 10/18/20 03:50 Glucose 111 mg/dL (74-106) H 10/18/20 03:50 Phosphorus 3.9 mg/dL (2.5-4.9) 10/17/20 03:55 Magnesium 2.0 mg/dL (1.8-2.4) 10/17/20 03:55 Home Medications: Dabigatran Etexilate Mesylate [Pradaxa] 150 mg PO BID 10/16/20 Insulin Detemir [Levemir Flextouch] 30 unit SQ DAILY 10/16/20 Metoprolol Tartrate 50 mg PO BID 10/16/20 Amox/Clavulanate [Augmentin 875-125 Tab*] 875 mg PO BID #14 tab 10/18/20 Doxycycline Hyclate [Vibramycin] 100 mg PO BID #14 capsule 10/18/20 Mupirocin Oint [Bactroban 2% Ointment*] 1 appl TOP BID #1 tube 10/18/20 New Medications: Amox/Clavulanate [Augmentin 875-125 Tab*] 875 mg PO BID #14 tab Mupirocin Oint [Bactroban 2% Ointment*] 1 appl TOP BID #1 tube Doxycycline Hyclate [Vibramycin] 100 mg PO BID #14 capsule Diet: ADA Activity: Ad raleigh Followup: John Varela MD [Primary Care Provider] - 1-2 Weeks Tod Phillip JR, DPM [ASSOCIATE-ACTIVE - CAN ADMIT] - (within 2 weeks.) Time spent managing pt's care (in minutes): 36
[2020-10-18] MEDS ORDERED: DOXYCYCLINE 100 MG CAP PO SCH (21:00)
[2020-10-18] MEDS ORDERED: AMOX/K CLAV 875 MG TAB PO SCH (21:00)
== END 2020-10-18 14:12 | disposition home or self-care (01) | DRG 603 ==
LOC: ER 08:44 → ERHOLD 11:46 → 2ND 12:52
PROVIDERS: ADMIT Hospitalist; ATTEND Internal Medicine
DX: L03.116 Cellulitis of left lower limb (principal); I10 Essential (primary) hypertension; E11.9 Type 2 diabetes mellitus without complications; I25.10 Atherosclerotic heart disease of native coronary artery without angina pectoris; I48.91 Unspecified atrial fibrillation; I87.2 Venous insufficiency (chronic) (peripheral); E78.5 Hyperlipidemia, unspecified; I87.8 Other specified disorders of veins; E11.621 Type 2 diabetes mellitus with foot ulcer; L97.529 Non-pressure chronic ulcer of other part of left foot with unspecified severity; Z79.4 Long term (current) use of insulin; Z87.891 Personal history of nicotine dependence; Z79.899 Other long term (current) drug therapy; Z96.652 Presence of left artificial knee joint
CPT/HCPCS: 36415; 80048; 80202; 81003; 82947; 83605; 83735; 84100; 84145; 85025; 85610; 85730; 87040; 87070; 87205; 93925; 93971; 94760; 96365; 96375; 99284; 99285; J1815; J3370; J7040

== ENCOUNTER 2020-11-19 18:33 | Observation (INO) | payer OTHER, MEDICARE ==
[2020-11-19] MEDS ORDERED: NA CHLORIDE 0.9% 2,000 ML ONE (19:22)
--- NOTE | 2020-11-19 19:53 | RAD REPORT ---
EXAM DESCRIPTION: RAD - Chest Single View - 11/19/2020 7:32 pm CLINICAL HISTORY: FEVER Chest pain. COMPARISON: Chest Pa And Lat (2 Views) dated 11/29/2019; Chest Pa And Lat (2 Views) dated 11/10/2019; C HEST SINGLE VIEW dated 08/10/2014; CHEST SINGLE VIEW dated 09/16/2013 FINDINGS: Portable technique limits examination quality. Mild interstitial pulmonary edema. The heart is moderately enlarged in size. No displaced fractures. IMPRESSION: Mild CHF.
[2020-11-19 20:12] LABS: Absolute Lymphocytes (CBC) 0.6 K/uL (0.7-4.9); Basophils % 0.5 % (0-1.3); Hematocrit 35.4 % (39.6-49.0); Lymphocytes % 6.2 % (15.3-44.8); MPV 9.9 fL (7.6-11.3); RBC Red Blood Cell Count 3.81 M/uL (4.33-5.43)
[2020-11-19 20:15] LABS: Protime INR 1.7
[2020-11-19 20:27] LABS: ALT/SGPT 17 U/L (12-78); AST/SGOT 18 U/L (15-37); Albumin 3.3 g/dL (3.4-5.0); Alkaline Phosphatase 66 U/L (45-117); Amylase 42 U/L (25-115); BUN Blood Urea Nitrogen 28 mg/dL (7-18); Bicarbonate 24 mmol/L (21-32); Bilirubin Direct 0.2 mg/dL (0-0.2); Bilirubin Total 0.6 mg/dL (0.2-1.0); CKMB Creatine Kinase MB < 1.0 ng/mL (0.3-3.6); Creatine Phosphokinase 85 U/L (39-308); Glucose Level 195 mg/dL (74-106); Lipase 74 U/L (73-393); Potassium 4.1 mmol/L (3.5-5.1); Protein, Total 7.1 g/dL (6.4-8.2); Sodium Level 137 mmol/L (136-145); Troponin (Emerg Dept Use Only) < 0.02 ng/mL (0.0-0.045)
[2020-11-19 20:43] LABS: Blood Morphology Comment NOT SEEN (NOT SEEN); Platelet Estimate DECR
[2020-11-19 21:21] LABS: Urine Bacteria <20 /HPF (NONE SEEN)
[2020-11-19 21:22] LABS: Urine Blood TRACE (NEG); Urine Glucose NEGATIVE (NEG); Urine Protein 1+ (NEG); Urine Specific Gravity >1.030 (1.005-1.030); Urine pH 5.5 (5.0-7.0)
[2020-11-19 21:59] LABS: SARS-COV-2 RT PCR POSITIVE (NEGATIVE)
--- NOTE | 2020-11-20 00:36 | EDPHYS ---
Physician Documentation [facility] Name: Gary Rader Age: 74 yrs Sex: Male : 1945 Arrival Date: 11/19/2020 Time: 18:46 Bed 2 Private MD: ED Physician Lencho Gray HPI: 11/19 19:37 This 74 yrs old Male presents to ER via EMS with complaints of Fever, Nausea. mh7 19:38 The patient presents to the emergency department with nausea, that is moderate, mh7 vomiting, that is intermittent. Onset: The symptoms/episode began/occurred 2 day(s) ago. Possible causes: unknown. The symptoms are aggravated by nothing. The symptoms are alleviated by nothing. Associated signs and symptoms: Pertinent positives: fever, nausea, vomiting, generalized fatigue/weakness, Pertinent negatives: abdominal pain, anorexia, belching, constipation, diarrhea, dysuria, flatulence, GI bleeding, hematuria. Severity of symptoms: At their worst the symptoms were moderate this morning, in the emergency department the symptoms have improved moderately. Historical: - Allergies: 18:51 No Known Allergies; hb - Home Meds: 18:51 Digoxin Oral [Active]; Levemir FlexTouch 100 unit/mL (3 mL) subcutaneous inpn 30 unit hb daily [Active]; metoprolol tartrate 50 mg Oral tab 1 tab 2 times per day [Active]; Metoprolol Tartrate Oral [Active]; - PMHx: 18:51 Atrial Fib; Diabetes - IDDM; Hypertension; hb - PSHx: 18:51 L knee replacement; R hip surgery; hb - Immunization history:: Adult Immunizations. - Social history:: Smoking status: Patient denies any tobacco usage or history of. ROS: 19:38 Eyes: Negative for injury, pain, redness, and discharge, ENT: Negative for injury, mh7 pain, and discharge, Neck: Negative for injury, pain, and swelling, Cardiovascular: Negative for chest pain, palpitations, and edema, Respiratory: Negative for shortness of breath, cough, wheezing, and pleuritic chest pain, Back: Negative for injury and pain, : Negative for injury, bleeding, discharge, and swelling, MS/Extremity: Negative for injury and deformity, Skin: Negative for injury, rash, and discoloration, Psych: Negative for depression, anxiety, suicide ideation, homicidal ideation, and hallucinations, Allergy/Immunology: Negative for hives, rash, and allergies, Endocrine: Negative for neck swelling, polydipsia, polyuria, polyphagia, and marked weight changes, Hematologic/Lymphatic: Negative for swollen nodes, abnormal bleeding, and unusual bruising. Exam: 19:38 Constitutional: This is a well developed, well nourished patient who is awake, alert, mh7 and in no acute distress. Head/Face: Normocephalic, atraumatic. Eyes: Pupils equal round and reactive to light, extra-ocular motions intact. Lids and lashes normal. Conjunctiva and sclera are non-icteric and not injected. Cornea within normal limits. Periorbital areas with no swelling, redness, or edema. Neck: Trachea midline, no thyromegaly or masses palpated, and no cervical lymphadenopathy. Supple, full range of motion without nuchal rigidity, or vertebral point tenderness. No Meningismus. Chest/axilla: Normal chest wall appearance and motion. Nontender with no deformity. No lesions are appreciated. 19:38 Respiratory: Lungs have equal breath sounds bilaterally, clear to auscultation and percussion. No rales, rhonchi or wheezes noted. No increased work of breathing, no retractions or nasal flaring. Abdomen/GI: Soft, non-tender, with normal bowel sounds. No distension or tympany. No guarding or rebound. No evidence of tenderness throughout. Back: No spinal tenderness. No costovertebral tenderness. Full range of motion. Skin: Warm, dry with normal turgor. Normal color with no rashes, no lesions, and no evidence of cellulitis. MS/ Extremity: Pulses equal, no cyanosis. Neurovascular intact. Full, normal range of motion. Neuro: Awake and alert, GCS 15, oriented to person, place, time, and situation. Cranial nerves II-XII grossly intact. Motor strength 5/5 in all extremities. Sensory grossly intact. Cerebellar exam normal. Normal gait. Psych: Awake, alert, with orientation to person, place and time. Behavior, mood, and affect are within normal limits. 19:38 Cardiovascular: Rate: tachycardic, Rhythm: irregularly irregular, Pulses: no pulse deficits are appreciated, Heart sounds: normal, normal S1and S2, Edema: is not appreciated, JVD: is not appreciated. Vital Signs: 18:47 BP 111 / 56; Pulse 112; Resp 17; Temp 102.1; Pulse Ox 99% on R/A; Pain 0/10; hb 19:27 Weight 104.33 kg; Height 6 ft. 5 in. (195.58 cm); mg2 19:35 Pulse 108; Resp 18; Temp 99.6(O); Pulse Ox 99% on R/A; mg2 22:20 Pulse 99; Resp 18; Pulse Ox 99% on R/A; mg2 23:34 BP 113 / 79; Pulse 109; Resp 18; Temp 98.7; Pulse Ox 100% ; mg2 19:27 Body Mass Index 27.27 (104.33 kg, 195.58 cm) mg2 MDM: 11/20 00:32 Differential diagnosis: gastritis, Vomiting, Viral infection, dehydration. Data [facility] reviewed: vital signs, nurses notes, EMS record, old medical records, lab test result(s), cardiac enzymes, CBC, electrolytes, Flu: negative urinalysis, EKG, radiologic studies, CT scan, plain films. Data interpreted: Pulse oximetry: on room air is 100 %. Interpretation: normal. Counseling: I had a detailed discussion with the patient and/or guardian regarding: the historical points, exam findings, and any diagnostic results supporting the discharge/admit diagnosis, lab results, radiology results, the need for further work-up and treatment in the hospital. Response to treatment: the patient's symptoms have mildly improved after treatment. 00:35 Patient medically screened. [facility] 11/19 18:48 Order name: Amylase, Serum; Complete Time: 20:35 [facility] 11/19 18:48 Order name: Basic Metabolic Panel; Complete Time: 20:35 [facility] 11/19 18:48 Order name: Blood Culture Adult (2) [facility] 11/19 18:48 Order name: CBC with Diff; Complete Time: 20:44 [facility] 11/19 18:48 Order name: Ckmb; Complete Time: 20:35 [facility] 11/19 18:48 Order name: CPK; Complete Time: 20:35 [facility] 11/19 18:48 Order name: Lactate; Complete Time: 20:35 [facility] 11/19 18:48 Order name: LFT's; Complete Time: 20:35 [facility] 11/19 18:48 Order name: Lipase; Complete Time: 20:35 [facility] 11/19 18:48 Order name: Procalcitonin; Complete Time: 20:44 [facility] 11/19 18:48 Order name: Protime (+inr); Complete Time: 20:35 [facility] 11/19 18:48 Order name: Ptt, Activated; Complete Time: 20:35 [facility] 11/19 18:48 Order name: Troponin (emerg Dept Use Only); Complete Time: 20:35 [facility] 11/19 18:48 Order name: Urine Microscopic Only; Complete Time: 21:50 [facility] 11/19 20:00 Order name: Glucose, Ancillary Testing; Complete Time: 20:35 [facility] 11/19 20:18 Order name: Manual Differential; Complete Time: 20:44 [facility] 11/19 21:09 Order name: Urine Dipstick--Ancillary (enter results); Complete Time: 21:50 [facility] 11/19 21:59 Order name: COVID-19/FLU A+B; Complete Time: 22:01 [facility] 11/20 00:27 Order name: Lactate Sepsis 2 HR Follow-up; Complete Time: 00:31 [facility] 11/20 01:14 Order name: CKMB Creatine Kinase MB [facility] 11/20 01:14 Order name: CKMB Creatine Kinase MB [facility] 11/20 01:14 Order name: CKMB Creatine Kinase MB [facility] 11/20 01:14 Order name: CKMB Creatine Kinase MB [facility] 11/20 01:14 Order name: Comprehensive Metabolic Panel [facility] 11/20 01:14 Order name: Comprehensive Metabolic Panel [facility] 11/20 01:14 Order name: Troponin I [facility] 11/20 01:14 Order name: Troponin I [facility] 11/20 01:14 Order name: Troponin I [facility] 11/19 18:48 Order name: Chest Single View XRAY; Complete Time: 20:35 [facility] 11/19 18:48 Order name: Accucheck; Complete Time: 19:51 [facility] 11/19 18:48 Order name: Cardiac monitoring; Complete Time: 19:51 [facility] 11/19 18:48 Order name: EKG - Nurse/Tech; Complete Time: 19:09 [facility] 11/19 18:48 Order name: IV Saline Lock - Large Bore; Complete Time: 19:51 [facility] 11/19 18:48 Order name: Labs collected and sent; Complete Time: 19:51 [facility] 11/19 18:48 Order name: O2 Per Protocol; Complete Time: 19:51 [facility] 11/19 18:48 Order name: O2 Sat Monitoring; Complete Time: 19:51 [facility] 11/19 18:48 Order name: Urine Dipstick-Ancillary (obtain specimen); Complete Time: 21:10 [facility] 11/19 22:03 Order name: CT Chest For PE Angio mh7 11/20 01:13 Order name: CONS Pharmacy Consult EDID 11/20 01:14 Order name: Consistent Carb (ADA) [address] EDMS 11/20 01:15 Order name: CBC with Automated Diff EDMS 11/20 01:15 Order name: CBC with Automated Diff EDMS Administered Medications: 11/19 19:34 Drug: NS 0.9% (30 ml/kg) 30 ml/kg Route: IV; Rate: bolus; Site: right antecubital; mg2 19:51 Not Given (temp-99.6, iv tylenol given by the ems scow captain): Tylenol 1000 mg PO once mg2 11/20 00:30 Drug: Metoprolol TARTRATE (Lopressor) 50 mg Route: PO; mg2 01:30 Follow up: Response: No adverse reaction mg2 Disposition: 11/20/20 00:35 Hospitalization ordered by Francisco Oliva for Observation. Preliminary diagnosis are Coronavirus infection, unspecified, Dehydration, Unspecified atrial fibrillation. - Bed requested for Telemetry/MedSurg (observation). - Status is Observation. lp1 - Condition is Stable. - Problem is new. - Symptoms have improved. Signatures: Dispatcher [employer] [facility] Geovanna Jeter RN RN All Pablo MD MD [facility] Holley Muir RN RN lp1 Eva Aguilera RN RN Victor Manuel Viera RN RN [facility] eLncho Gray MD MD 7 Corrections: (The following items were deleted from the chart) 11/19 20:52 19:19 Influenza Screen (A \T\ B)+BA.LAB.BRZ ordered. [facility] 20:52 19:19 CORONAVIRUS+MR.LAB.BRZ ordered. [facility] 11/20 01:38 00:35 Hospitalization Ordered by Francisco Oliva MD for Observation. Preliminary diagnosis is Coronavirus infection, unspecified; Dehydration; Unspecified atrial fibrillation. Bed requested for Telemetry/MedSurg (observation). Status is Observation. Condition is Stable. Problem is new. Symptoms have improved. mh7 02:23 01:38 11/20/2020 00:35 Hospitalization Ordered by Francisco Oliva MD for Observation. lp1 Preliminary diagnosis is Coronavirus infection, unspecified; Dehydration; Unspecified atrial fibrillation. Bed requested for Telemetry/MedSurg (observation). Status is Observation. Condition is Stable. Problem is new. Symptoms have improved. mw
--- NOTE | 2020-11-20 00:36 | ER ---
Nurse's Notes [facility] Name: Gary Rader Age: 74 yrs Sex: Male : 1945 Arrival Date: 11/19/2020 Time: 18:46 Bed 2 Private MD: Diagnosis: Coronavirus infection, unspecified;Dehydration;Unspecified atrial fibrillation Presentation: 11/19 18:47 Chief complaint: EMS states: Generalized weakness and nausea x 2 days, vomit x 1 today. hb Bp 114/72, SpO2 96% on RA, T 103. 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 Coronavirus screen: Client presents with at least one sign or symptom that may indicate coronavirus-19. Standard/surgical mask placed on the client. Provider contacted for isolation considerations. Ebola Screen: No symptoms or risks identified at this time. Initial Sepsis Screen: Does the patient meet any 2 criteria? Temp <36.0*C (96.8*F)) or > 38.3*C (100.9*F). HR > 90 bpm. Yes Does the patient have a suspected source of infection? No. Patient's initial sepsis screen is negative. Risk Assessment: Do you want to hurt yourself or someone else? Patient reports no desire to harm self or others. Onset of symptoms was November 18, 2020 at 18:50. 18:47 Method Of Arrival: EMS: [facility] 18:47 Acuity: KAREL 2 hb Triage Assessment: 18:51 General: Appears in no apparent distress. Behavior is calm, cooperative. Pain: Denies hb pain. EENT: No signs and/or symptoms were reported regarding the EENT system. Neuro: Level of Consciousness is awake, alert, obeys commands, Oriented to person, place, time, situation. Cardiovascular: Capillary refill < 3 seconds Patient's skin is warm and dry. Respiratory: Respiratory effort is even, unlabored, Respiratory pattern is regular, symmetrical. GI: Reports nausea. : No signs and/or symptoms were reported regarding the genitourinary system. Derm: Skin is pink, warm \T\ dry. Musculoskeletal: Reports generalized weakness. Historical: - Allergies: 18:51 No Known Allergies; hb - Home Meds: 18:51 Digoxin Oral [Active]; Levemir FlexTouch 100 unit/mL (3 mL) subcutaneous inpn 30 unit hb daily [Active]; metoprolol tartrate 50 mg Oral tab 1 tab 2 times per day [Active]; Metoprolol Tartrate Oral [Active]; - PMHx: 18:51 Atrial Fib; Diabetes - IDDM; Hypertension; hb - PSHx: 18:51 L knee replacement; R hip surgery; hb - Immunization history:: Adult Immunizations. - Social history:: Smoking status: Patient denies any tobacco usage or history of. Screenin:53 Abuse screen: Denies threats or abuse. Denies injuries from another. Nutritional hb screening: No deficits noted. Tuberculosis screening: No symptoms or risk factors identified. Fall Risk None identified. Assessment: 18:52 General: see triage assessment. hb 19:52 Reassessment: Patient appears in no apparent distress at this time. Patient and/or mg2 family updated on plan of care and expected duration. Pain level reassessed. Patient is alert, oriented x 3, equal unlabored respirations, skin warm/dry/pink. 20:30 Reassessment: Patient appears in no apparent distress at this time. Patient and/or mg2 family updated on plan of care and expected duration. Pain level reassessed. Patient is alert, oriented x 3, equal unlabored respirations, skin warm/dry/pink. 21:30 Reassessment: No changes from previously documented assessment. mg2 22:30 Reassessment: Patient appears in no apparent distress at this time. Patient and/or mg2 family updated on plan of care and expected duration. Pain level reassessed. 11/20 00:29 Reassessment: estela [phone] spoke to her and updated for the plan of care. rr5 01:30 Reassessment: Patient appears in no apparent distress at this time. Patient and/or mg2 family updated on plan of care and expected duration. Pain level reassessed. Vital Signs: 11/19 18:47 BP 111 / 56; Pulse 112; Resp 17; Temp 102.1; Pulse Ox 99% on R/A; Pain 0/10; hb 19:27 Weight 104.33 kg; Height 6 ft. 5 in. (195.58 cm); mg2 19:35 Pulse 108; Resp 18; Temp 99.6(O); Pulse Ox 99% on R/A; mg2 22:20 Pulse 99; Resp 18; Pulse Ox 99% on R/A; mg2 23:34 BP 113 / 79; Pulse 109; Resp 18; Temp 98.7; Pulse Ox 100% ; mg2 19:27 Body Mass Index 27.27 (104.33 kg, 195.58 cm) mg2 ED Course: 18:46 Patient arrived in ED. hb 18:47 All Pablo MD is Attending Physician. kdr 18:50 Triage completed. hb 18:51 Arm band placed on. hb 18:53 Patient has correct armband on for positive identification. Bed in low position. Call hb light in reach. Side rails up X 1. 18:53 Maintain EMS IV. Dressing intact. Good blood return noted. Site clean \T\ dry. Gauge \T\ hb site: 20G RAC. 19:00 Attending Physician role handed off by All Pablo MD 7 19:00 Lencho Gray MD is Attending Physician. 7 19:05 Victor Manuel Viera, ANTOINETTE is Primary Nurse. mg2 19:09 EKG done, by ED staff, reviewed by Lencho Gray MD. dh3 19:32 Chest Single View XRAY In Process Unspecified. EDMS 19:52 No provider procedures requiring assistance completed. Inserted saline lock: 20 gauge mg2 in left antecubital area, using aseptic technique. Blood collected. by CHRISTINE Felipe TECH. 20:28 Notified ED physician of a critical lab result(s). lactic acid 2.1. ll1 23:42 CT Chest For PE Angio In Process Unspecified. EDMS 11/20 00:34 Francisco lOiva MD is Hospitalizing Provider. [facility] 01:53 Patient admitted, IV remains in place. lp1 Administered Medications: 11/19 19:34 Drug: NS 0.9% (30 ml/kg) 30 ml/kg Route: IV; Rate: bolus; Site: right antecubital; mg2 19:51 Not Given (temp-99.6, iv tylenol given by the ems canal boat captain): Tylenol 1000 mg PO once mg2 11/20 00:30 Drug: Metoprolol TARTRATE (Lopressor) 50 mg Route: PO; mg2 01:30 Follow up: Response: No adverse reaction mg2 Outcome: 00:35 Decision to Hospitalize by Provider. 7 01:53 Admitted to Tele via stretcher, room 410, with chart, Report called to ANTOINETTE Delgadillo lp1 01:53 Condition: stable 01:53 Instructed on the need for admit. 02:23 Patient left the ED. lp1 Signatures: Dispatcher [employer] EDMS All Pablo MD MD [facility] Holley Muir RN RN lp1 Eva Aguilera RN RN Concepcion Munoz [facility] Victor Manuel Viera RN RN mg2 Armando Connolly RN RN rr5 Collin Modi RN RN 1 Lencho Gray MD MD 7 Corrections: (The following items were deleted from the chart) 11/19 18:51 18:47 BP 111 / 56; Pulse 120bpm; Resp 17bpm; Pulse Ox 99% RA; Temp 102.1F; Pain 0/10; hbhb 11/20 03:55 11/19 01:30 Reassessment: Patient appears in no apparent distress at this time. Patient mg2 and/or family updated on plan of care and expected duration. Pain level reassessed. mg2
[2020-11-20] MEDS ORDERED: METOPROLOL TAR 50 MG TAB ONE (00:41)
[2020-11-20] MEDS ORDERED: MORPHINE 2 MG/ML SYR IV PRN (01:10)
[2020-11-20] MEDS ORDERED: ONDANSETRON 4 MG/2 ML VIAL IV PRN (01:10)
[2020-11-20] MEDS ORDERED: ACETAMINOPHEN 500 MG TAB PO PRN (01:10)
--- NOTE | 2020-11-20 01:10 | P.HP ---
Certification for Inpatient Patient admitted to: Inpatient With expected LOS: >2 Midnights Practitioner: I am a practitioner with admitting privileges, knowledge of patient current condition, hospital course, and medical plan of care. Services: Services provided to patient in accordance with Admission requirements found in Title 42 Section 412.3 of the Code of Federal Regulations Patient History Date of Service: 11/20/20 Reason for admission: Palpitation History of Present Illness: 74 yo maleWith past medical history hypertension, hyperlipidemia, diabetes, AFib, came to ER with fever nausea and vomiting which has been going on for last 2 days and has been progressively worsening hence was brought to ER. Patient states that he started having fevers 2 days ago associated with cough with mucoid expectoration and generalized weakness and body pain. Denies any chest pain or shortness of breath. Denies any palpitation. Associated with nausea and occasional vomiting. No modifying factors. Denies any abdominal pain or dysuria Patient was assessed in the ER and was found to have AFib with RVR and covid 19 test came back positive and was admitted for further management At the time of interview in the ER patient still on AFib with RVR with a rate is better than before and saturating well in room air Allergies No Known Allergies Allergy (Verified 11/20/20 02:44) Home medications list reviewed: Yes Home Medications: Dabigatran Etexilate Mesylate [Pradaxa] 150 mg PO BID 10/16/20 Insulin Detemir [Levemir Flextouch] 30 unit SQ DAILY 10/16/20 Metoprolol Tartrate 50 mg PO BID 10/16/20 - Past Medical/Surgical History Diabetic: Yes Past Medical History: Reviewed- Non-Contributory -: Afib -: diabetes/IDDM -: HTN -: high cholesterol -: CAD -: CAD -: Afib Past Surgical History: Reviewed- Non-Contributory -: hip sx right -: achilles tendon sx right side -: left knee replacement -: middle toe sx - Social History Smoking Status: Never smoker Alcohol use: Yes CD- Drugs: No Caffeine use: Yes Review of Systems 10-point ROS is otherwise unremarkable Physical Examination - Vital Signs Temperature: 102.1 F Blood Pressure: 111/56 Pulse: 102 Respirations: 20 - Physical Exam General: Alert, Mild distress HEENT: Atraumatic, Normocephalic Neck: Supple Respiratory: Diminished, Crackles/rales Cardiovascular: Other (Tachycardia ), Irregular heart rate/rhythm Capillary refill: <2 Seconds Gastrointestinal: Soft and benign, Non-distended, W/out hepatosplenomegaly Musculoskeletal: No clubbing, No swelling Integumentary: No rashes, No breakdown Neurological: Normal speech, Normal strength at 5/5 x4 extr Lymphatics: No axilla or inguinal lymphadenopathy - Studies Laboratory Data (last 24 hrs) 11/19/20 19:50: PT 19.8 H, INR 1.70, APTT 35.5 11/19/20 19:50: WBC 10.3, Hgb 12.0 L, Hct 35.4 L, Plt Count 93 L 11/19/20 19:50: Sodium 137, Potassium 4.1, BUN 28 H, Creatinine 1.13, Glucose 195 H, Total Bilirubin 0.6, AST 18, ALT 17, Alkaline Phosphatase 66, Amylase 42, Lipase 74 Assessment and Plan - Problems (Diagnosis) (1) Atrial fibrillation with RVR Current Visit: Yes Status: Acute (2) COVID-19 Current Visit: Yes Status: Acute (3) CAD (coronary artery disease) Current Visit: No Status: Acute (4) Diabetes mellitus Current Visit: No Status: Acute (5) Hyperlipidemia Current Visit: No Status: Acute (6) Hypertension Current Visit: No Status: Acute - Plan AFib with RVR Acute febrile illness COVID 19 positive Hypertension Hyperlipidemia Diabetes mellitus History of CAD History of AFib Elevated procalcitonin and lactic acid Plan Monitor closely under telemetry Continue beta-blockers for rate control Add on Lopressor IV p.r.n. if heart rate more than 120 Start on empiric antibiotics CTA did not show any pulmonary embolism Will start on steroids empirical Continue home medications On anticoagulation Titrate antihypertensives Insulin sliding scale Will get blood cultures Electrolytes monitored replace accordingly Will monitor renal parameters GI/DVT prophylaxis Advanced directives full code - Advance Directives Does patient have a Living Will: No Does patient have a Durable POA for Healthcare: No Time Spent Managing Pts Care (In Minutes): 45
[2020-11-20 02:07] LABS: CKMB Creatine Kinase MB 1.7 ng/mL (0.3-3.6); Troponin I < 0.02 ng/mL (0.0-0.045)
[2020-11-20 02:44] VITALS: BMI 28.5
[2020-11-20] MEDS: dexAMETHasone 10 MG/ML VIAL IV SCH ×2 (02:52→09:46)
[2020-11-20 04:48] VITALS: O2SAT 95
[2020-11-20] MEDS ORDERED: METOPROLOL TARTRATE 5 MG/5 ML INJ IV PRN (05:21)
[2020-11-20] MEDS: INSULIN -REGULAR HUMAN 50 UNIT/0.5 ML ML SQ SCH ×2 (07:30→11:32)
[2020-11-20] MEDS ORDERED: PANTOPRAZOLE 40MG TABLET PO SCH (07:30)
[2020-11-20] MEDS ORDERED: METOPROLOL TAR 50 MG TAB PO SCH (09:00)
[2020-11-20] MEDS ORDERED: CEFTRIAXONE 1 GM/NS 50 ML 1 GM/50 ML BAG IV SCH (09:00)
[2020-11-20] MEDS ORDERED: MUPIROCIN 2% OINT 22GM TUBE TOP SCH (09:00)
[2020-11-20] MEDS ORDERED: DABIGATRAN 150 MG CAP PO SCH (09:00)
[2020-11-20] MEDS ORDERED: AZITHROMYCIN IV 500 MG in NA CHLORIDE 0.9% 250 ML IVPB SCH (09:00)
[2020-11-20] MEDS ORDERED: CEFTRIAXONE/SWI 1gm 1 GM/10 ML SYR IV SCH (10:00)
[2020-11-20 11:35] VITALS: BP 127/60; TEMP 99
--- NOTE | 2020-11-20 12:20 | P.DS ---
Admission Date: 11/20/20 Discharge Date: 11/20/20 Reason for Admission: Palpitation - Problems (1) Atrial fibrillation with RVR Current Visit: Yes Status: Acute (2) COVID-19 Current Visit: Yes Status: Acute (3) Diabetes mellitus Current Visit: No Status: Acute (4) Hypertension Current Visit: No Status: Acute Brief History of Present Illness: 74-year-old gentleman with a history of hypertension, hyperlipidemia, atrial fibrillation and diabetes came to the emergency department due to fever and nausea and vomiting of 2 days duration. Patient also reports a cough productive of clear sputum as well as generalized weakness and body pains. Patient was found to be in atrial fibrillation with RVR. This COVID 19 test came back positive. Chest x-ray and CTA thorax showed no pulmonary embolism or infiltrate Patient was hospitalized for further management. Hospital Course: Patient placed under observation. His troponin was mildly elevated but it trended flat excluding ACS. Patient had no chest pain or shortness of breath. Patient did not require oxygen. He tolerated room air with good oxygen saturation. His heart rate over it between 90 to the low 100 on is usually home metoprolol dose. His AFib with RVR has improved. Patient has intermittent fever likely secondary to the Jesse 19 infection. Patient is discharged with a prescription for prednisone, vitamin-C and vitamin-D supplementation. He has been informed to self isolate and also to return to the emergency department should he experienced significant shortness of breath. Vital Signs/Physical Exam: Temp Pulse Resp BP Pulse Ox 99 F 91 H 17 127/60 97 11/20/20 11:34 11/20/20 11:34 11/20/20 11:34 11/20/20 11:34 11/20/20 11:34 General: Alert, In no apparent distress Respiratory: Normal air movement Cardiovascular: Irregular heart rate/rhythm Gastrointestinal: Soft and benign, Non-distended Musculoskeletal: No swelling Integumentary: No rashes Neurological: Normal strength at 5/5 x4 extr Laboratory Data at Discharge: WBC 10.3 K/uL (4.3-10.9) 11/19/20 19:50 Hgb 12.0 g/dL (13.6-17.9) L 11/19/20 19:50 Hct 35.4 % (39.6-49.0) L 11/19/20 19:50 Plt Count 93 K/uL (152-406) L 11/19/20 19:50 PT 19.8 SECONDS (9.5-12.5) H 11/19/20 19:50 INR 1.70 11/19/20 19:50 APTT 35.5 SECONDS (24.3-36.9) 11/19/20 19:50 Sodium 137 mmol/L (136-145) 11/19/20 19:50 Potassium 4.1 mmol/L (3.5-5.1) 11/19/20 19:50 BUN 28 mg/dL (7-18) H 11/19/20 19:50 Creatinine 1.13 mg/dL (0.55-1.3) 11/19/20 19:50 Glucose 195 mg/dL (74-106) H 11/19/20 19:50 Total Bilirubin 0.6 mg/dL (0.2-1.0) 11/19/20 19:50 AST 18 U/L (15-37) 11/19/20 19:50 ALT 17 U/L (12-78) 11/19/20 19:50 Alkaline Phosphatase 66 U/L (45-117) 11/19/20 19:50 Troponin I < 0.02 ng/mL (0.0-0.045) 11/20/20 05:43 Amylase 42 U/L (25-115) 11/19/20 19:50 Lipase 74 U/L (73-393) 11/19/20 19:50 Home Medications: Dabigatran Etexilate Mesylate [Pradaxa] 150 mg PO BID 10/16/20 Insulin Detemir [Levemir Flextouch] 30 unit SQ DAILY 10/16/20 Metoprolol Tartrate 50 mg PO BID 10/16/20 Ascorbic Acid [Vitamin C] 1,000 mg PO BID #60 tablet 11/20/20 Cholecalciferol (Vitamin D3) [Vitamin D 5,000 Iu Cap] 5,000 unit PO DAILY #30 cap 11/20/20 Mupirocin Oint [Bactroban 2% Ointment*] 1 appl TOP BID #1 tube 11/20/20 Zinc Sulfate [Zinc Sulfate*] 220 mg PO DAILY #30 cap 11/20/20 predniSONE [Deltasone] 20 mg PO BID #21 tab 11/20/20 New Medications: Mupirocin Oint [Bactroban 2% Ointment*] 1 appl TOP BID #1 tube predniSONE [Deltasone] 20 mg PO BID #21 tab Ascorbic Acid [Vitamin C] 1,000 mg PO BID #60 tablet Cholecalciferol (Vitamin D3) [Vitamin D 5,000 Iu Cap] 5,000 unit PO DAILY #30 cap Zinc Sulfate [Zinc Sulfate*] 220 mg PO DAILY #30 cap Diet: ADA Activity: Ad raleigh Followup: John Varela MD [Primary Care Provider] -
--- NOTE | 2020-11-21 12:55 | RAD REPORT ---
EXAM DESCRIPTION: CT - Chest For Pe Angio - 11/20/2020 1:21 am CLINICAL HISTORY: Fever; SOB TECHNIQUE: Contiguous axial images obtained through the chest during angiographic phase following th e uneventful administration of IV contrast. Sagittal and coronal reformatted images were provided. VT P reformatted images were provided. This exam was performed according to our departmental dose-optimization program, which includes autom ated exposure control, adjustment of the mA and/or kV according to patient size and/or use of iterati ve reconstruction technique. COMPARISON: No prior exams provided for comparison. FINDINGS: Diagnostic quality: There is good opacification of the pulmonary arterial tree. Motion art ifact degrades image quality and limits evaluation of segmental and subsegmental vessels. Lungs: No focal consolidation. Airways are patent. Pleura: No effusion. No pneumothorax. Heart and pericardium: The heart is enlarged. Coronary artery calcification. No pericardial effusion. Mediastinum and misty: No pathologically enlarged lymph nodes. Lower neck and chest wall: Unremarkable Vessels: No pulmonary arterial filling defects. Mild atherosclerotic disease. No thoracic aortic aneu rysm. Upper abdomen: The liver is enlarged and mildly diffusely low in density compatible with steatosis. Bones: Multilevel spondylosis. No acute fracture. T6 and T11 intraosseous hemangiomata. IMPRESSION: 1. Motion artifact degrades image quality and limits evaluation of segmental and subse gmental vessels. No central pulmonary embolic disease. 2. No focal infiltrate. 3. Other findings as above. Electronically signed by: Eduarda Oliva MD 11/19/2020 11:55 PM [employer] Due to temporary technical issues with the PACS/Fluency reporting system, reports are being signed by the in house radiologist without review as a courtesy to ensure prompt reporting. The interpreting r adiologist is fully responsible for the content of the report.
== END 2020-11-20 14:15 | disposition home or self-care (01) ==
LOC: ER 18:33 → INTOOBSV 11-20 01:17 → ERHOLD 11-20 01:17 → 4TH 11-20 01:53
PROVIDERS: ADMIT Family Medicine; ATTEND Internal Medicine
DX: U07.1 COVID-19 (principal); I48.91 Unspecified atrial fibrillation; E11.9 Type 2 diabetes mellitus without complications; I10 Essential (primary) hypertension; E78.5 Hyperlipidemia, unspecified; Z79.4 Long term (current) use of insulin; E78.00 Pure hypercholesterolemia, unspecified; I25.10 Atherosclerotic heart disease of native coronary artery without angina pectoris; Z96.652 Presence of left artificial knee joint; R79.89 Other specified abnormal findings of blood chemistry; R94.31 Abnormal electrocardiogram [ECG] [EKG]
CPT/HCPCS: 93005; 87040 ×2; 85025; 80048; 36415; 82150; 82550; 85610; 82947 ×3; 80076; 83605 ×2; 85730; 84484 ×3; 82553 ×3; 83690; 84145; 0240U; 71275; 71045; 94760; 96374; 99285; Q9967; J0456; J1100 ×2; J0696; J7050; J7030; 81003; 81015; 87205; G0378

== ENCOUNTER 2023-07-05 19:14 | Emergency (ER) | payer OTHER, MEDICARE ==
--- OUTSIDE RECORDS SUMMARY | 2023-07-05 19:20 | XMS REPORT | Continuity of Care Document ---
:[address] [facility] t Address [address] [place] [address] [address] [place] [address] Care Team Providers Name Role Phone John Varela Primary Care Physician [id number] Attending Clinician Unavailable CHIRAG KEE Attending Clinician Unavailable CHIRAG KEE Attending Clinician Unavailable FATIMAH CLINE Attending Clinician Unavailable FATIMAH CLINE NATASHA Attending Clinician Unavailable Chirag Kee Attending Clinician GARY HERNANDEZ Attending Clinician Unavailable Erma Gabriel Attending Clinician Kwaku Chen Attending Clinician Unavailable [id number] Admitting Clinician Unavailable CHIRAG KEE Admitting Clinician Unavailable CHIRAG KEE Admitting Clinician Unavailable MONIKA RAGLAND Admitting Clinician Unavailable FATIMAH CLINE, FATIMAH Admitting Clinician Unavailable Chirag Kee Admitting Clinician John Varela Admitting Clinician Unavailable Payers Payer Name Policy Type Policy Number Effective Date Expiration Date S rere MEDICARE PART A [id number] 2008 AND B 00:00:00 [facility] [id number] AARP AARP [id number] Problems Condition Condition Condition Status Onset Resolution Last Treating Co mments Source Name Details Category Date Date Treatment Clinician Date INFECTION INFECTION Diagnosis Active 2022-12-06 [facility] ASSOCIATED ASSOCIATED 11-15 22:00:00 l WITH WITH 00:00: [place] INTERNAL INTERNAL 00 LEFT LEFT Active 11/15/[address] 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 History of History Problem Active 2022-09-15 Mem[facility] SARS-CoV-2 of 11-04 23:47:13 l SARS-CoV-2 00:00: Abdirahman n Active 00 11/04/2019 Problem 09/15/2022 [facility] Open wound Open Problem Active 2022-09-15 M emoria (disorder) wound 23:47:13 l (disorder) Abdirahman n Active Problem 09/15/2022 LEFT FOOT [facility] Psoriasis Problem Active 2022-09-15 Me moria (disorder) Psoriasis 23:47:13 l (disorder) Abdirahman n Active Problem 09/15/2022 [facility] 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 Jez (disorder) (disorder) Active Problem 09/15/2022 [facility] Atrial Atrial Problem Active 2022-09-15 Harry gurdeep fibrillati fibrillati 23:47:13 l on on Jez (disorder) (disorder) Active Problem 09/15/2022 [facility] Infection Infection Problem Active 2022-09-15 Memoria of total of total 23:47:13 l knee joint knee joint He rmann prosthesis prosthesis (disorder) (disorder) Active Problem 09/15/2022 [facility] Allergies, Adverse Reactions, Alerts Allergy Allergy Status Severity Reaction(s) Onset Inactive Treating Comm ents Source Name Type Date Date Clinician NKA Allergy Active 2021-11 [facility] 11-21 13:52: 51 NKA Allergy Active 2021-11 [facility] 11-21 13:52: 51 No Known DA Active U 2020-11 [facility] All[facility]ie [facility]-04 Clear s 00:00: You 00 [facility] No Known DA Active U 2020-11 [facility] Allergie 0-04 Clear s 00:00: You 00 [facility] No Known No Known Active Memori a Medicati Medicati l on on Jez Allergie Allergie s s NKFA NKFA Active Bella Story Social History Social Habit Start Date Stop Date Quantity Comments Source Exposure to 2023-03-08 2023-03-18 Not sure [facility] SARS-CoV-2 (event) 00:00:00 12:47:00 Tobacco use and 2023-03-18 2023-03-18 Smokeless tobacco [facility] exposure 00:00:00 00:00:00 non-user Cigarettes smoked 2023-03-18 2023-03-18 [facility] current (pack per 00:00:00 00:00:00 day) - Reported Cigarette pack-years 2023-03-18 2023-03-18 [facility] 00:[facility]:00 00:00:00 Alcohol intake 2023-03-18 2023-03-18 Ex-drinker [facility] 00:00:00 00:00:00 (finding) History of tobacco 1981-12-05 1996-12-05 Cigarette Smoker [facility] use 00:00:00 00:00:00 Sex Ass[birth year] At [birth year] [facility] 00:00:00 00:00:00 Smoking Status Start Date Stop Date Source Tobacco smoking status 2022-09-05 18:12:54 2022-09-05 18:12:54 M galereynaldo Story Never smoked tobacco [facility] Medications Ordered Filled Start Stop Current Ordering Indication Dosage Frequency Signature Comments Components Source Medication Medication Date Date Medication? Clinician (SIG) Name Name linezolid 2022- No [id number] 600mg Q.5D Take 1 [facility] (Zyvox) 600 12-17 9103 tablet Healt h MG tablet 00:00: 05:59 (600 mg 00 :00 total) by mouth in the morning and 1 tablet (600 mg total) in the evening. Do all this for 14 days. linezolid 2022- No [id number] 600mg Q.5D Take 1 [facility] (Zyvox) 600 12-17 9103 tablet Healt h MG tablet 00:00: 05:59 (600 mg 00 :00 total) by mouth in the morning and 1 tablet (600 mg total) in the evening. Do all this for 14 days. linezolid 2022-0 3- No [id number] 600mg Q.5D Take 1 [facility] (Zyvox) 600 12-17 9103 tablet Healt h MG tablet 00:00: 00:00 (600 mg 00 :00 total) by mouth in the morning and 1 tablet (600 mg total) in the evening. Do all this for 14 days. traMADol 2022-0 Yes [id number] 50mg Q6H Take 1 UT (Ultram) 50 11-26 9103 tablet (50 He alth MG tablet 00:00: mg total) 00 by mouth every 6 (six) hours if needed for severe pain. aspirin 81 2022-0 Yes [id number] 81mg Q.5D Chew 1 UT MG chewable 11-26 9103 tablet (81 He alth tablet 00:00: mg total) 00 in the morning and 1 tablet (81 mg total) in the evening. Chew after meals. ondansetron 2022-0 Yes [id number] 4mg Take 1 UT ODT 11-26 9103 tablet (4 Health (Zofran-ODT 00:00: mg total) ) 4 MG 00 by mouth disintegrat every 8 ing tablet (eight) hours if needed for nausea or vomiting. gabapentin 2022-0 Yes [id number] 300mg Q.[id number] Take 1 UT (Neurontin) 11-26 9103 [id number] capsule Health 300 MG 00:00: 3D (300 mg capsule 00 total) by mouth in the morning and 1 capsule (300 mg total) at noon and 1 capsule (300 mg total) in the evening. traMADol 2022-0 Yes [id number] 50mg Q6H Take 1 UT (Ultram) 50 11-26 9103 tablet (50 He alth MG tablet 00:00: mg total) 00 by mouth every 6 (six) hours if needed for severe pain. aspirin 81 2022-0 Yes [id number] 81mg Q.5D Chew 1 UT MG chewable 11-26 9103 tablet (81 He alth tablet 00:00: mg total) 00 in the morning and 1 tablet (81 mg total) in the evening. Chew after meals. ondansetron 2022-0 Yes [id number] 4mg Take 1 UT ODT 1-23 9103 tablet (4 Health (Zofran-ODT 00:00: mg total) ) 4 MG 00 by mouth disintegrat every 8 ing tablet (eight) hours if needed for nausea or vomiting. gabapentin 2022-0 Yes [id number] 300mg Q.28154775 Take 1 UT (Neurontin) 1-23 9103 [id number] capsule Health 300 MG 00:00: 3D (300 mg capsule 00 total) by mouth in the morning and 1 capsule (300 mg total) at noon and 1 capsule (300 mg total) in the evening. traMADol 2022-0 Yes [id number] 50mg Q6H Take 1 UT (Ultram) 50 1- 9103 tablet (50 He alth MG tablet 00:00: mg total) 00 by mouth every 6 (six) hours if needed for severe pain. aspirin 81 2022-0 Yes [id number] 81mg Q.5D Chew 1 UT MG chewable - 9103 tablet (81 He alth tablet 00:00: mg total) 00 in the morning and 1 tablet (81 mg total) in the evening. Chew after meals. ondansetron 2022-0 Yes [id number] 4mg Take 1 UT ODT 1- 9103 tablet (4 Health (Zofran-ODT 00:00: mg total) ) 4 MG 00 by mouth disintegrat every 8 ing tablet (eight) hours if needed for nausea or vomiting. gabapentin 2022-0 Yes [id number] 300mg Q.00333557 Take 1 UT (Neurontin) 1-23 9103 [id number] capsule Health 300 MG 00:00: 3D (300 mg capsule 00 total) by mouth in the morning and 1 capsule (300 mg total) at noon and 1 capsule (300 mg total) in the evening. traMADol 2022-0 Yes [id number] 50mg Q6H Take 1 UT (Ultram) 50 1-23 9103 tablet (50 He alth MG tablet 00:00: mg total) 00 by mouth every 6 (six) hours if needed for severe pain. aspirin 81 2022-0 Yes [id number] 81mg Q.5D Chew 1 UT MG chewable 1- 9103 tablet (81 He alth tablet 00:00: mg total) 00 in the morning and 1 tablet (81 mg total) in the evening. Chew after meals. ondansetron 2022-0 Yes [id number] 4mg Take 1 UT ODT 11-2603 tablet (4 Health (Zofran-ODT 00:00: mg total) ) 4 MG 00 by mouth disintegrat every 8 ing tablet (eight) hours if needed for nausea or vomiting. gabapentin 2022-0 Yes [id number] 300mg Q.70850749 Take 1 UT (Neurontin) 11-2603 [id number] capsule Health 300 MG 00:00: 3D (300 mg capsule 00 total) by mouth in the morning and 1 capsule (300 mg total) at noon and 1 capsule (300 mg total) in the evening. doxycycline 0 2022- No [id number] 100mg Q.5D Take 1 UT (Vibramycin 11-26 9103 capsule Heal th ) 100 MG 00:00: 05:59 (100 mg capsule 00 :00 total) by mouth in the morning and 1 capsule (100 mg total) in the evening. Take with at least 8 ounces (large glass) of water, do not lie down for 30 minutes after. doxycycline 2022-0 2022- No [id number] 100mg Q.5D Take 1 UT (Vibramycin 11-26 9103 capsule Heal th ) 100 MG 00:00: 05:59 (100 mg capsule 00 :00 total) by mouth in the morning and 1 capsule (100 mg total) in the evening. Take with at least 8 ounces (large glass) of water, do not lie down for 30 minutes after. acetaminoph 0 2022- No [id number] 1000mg Take 2 UT en (Tylenol 11-26 9103 tablets Heal th Extra 00:00: 05:59 (1,000 mg Strength) 00 :00 total) by 500 MG mouth tablet every 8 (eight) hours if needed for mild pain. acetaminoph 2022-0 2022- No [id number] 1000mg Take 2 UT en (Tylenol 11-26 9103 tablets Heal th Extra 00:00: 05:59 (1,000 mg Strength) 00 :00 total) by 500 MG mouth tablet every 8 (eight) hours if needed for mild pain. HYDROcodone 2021-11 Yes UT -acetaminop 1-[address] [facility] [employer]) 10:59: 5-325 MG 21 tablet methocarbam 2021-11 Yes 500mg Q.25D Take 500 UT ol 1-23 mg by Health (Robaxin) 10:59: mouth in 500 MG 21 the tablet morning and 500 mg at noon and 500 mg in the evening and 500 mg before bedtime. aspirin 325 2021-11 Yes 325mg QD Take 325 U T MG tablet 1-23 mg by Health 10:59: mouth 1 21 (one) time each day. DULoxetine 2021-11 Yes 20mg QD Take 20 mg U T (Cymbalta) 1-23 by mouth 1 Hea lth [address] 10:59: (one) time capsule 21 each day. Do not crush or chew. ergocalcife 2021-11 Yes [id number] Take UT rol 1-23 50,000 Health (Vitamin 10:59: Units by D-2) 1.25 21 mouth 1 MG (33292 (one) time UT) capsule per week. gabapentin 2021-11 Yes 100mg Q.[id number] Take 100 UT (Neurontin) 1-23 [id number] mg by H ealth 100 MG 10:59: 3D mouth in capsule 21 the morning and 100 mg at noon and 100 mg in the evening. HYDROcodone 2021-11 Yes UT -acetaminop 1-[address] [facility] [employer]) 10:59: 5-325 MG 21 tablet methocarbam 2021-11 Yes 500mg Q.25D Take 500 UT ol 1-23 mg by Health (Robaxin) 10:59: mouth in 500 MG 21 the tablet morning and 500 mg at noon and 500 mg in the evening and 500 mg before bedtime. aspirin 325 2021-11 Yes 325mg QD Take 325 U T MG tablet 1-23 mg by Health 10:59: mouth 1 21 (one) time each day. DULoxetine 2021-11 Yes 20mg QD Take 20 mg U T (Cymbalta) 1-23 by mouth 1 Hea lth [address] 10:59: (one) time capsule 21 each day. Do not crush or chew. ergocalcife 2021-11 Yes [id number] Take UT rol 1-23 50,000 Health (Vitamin 10:59: Units by D-2) 1.25 21 mouth 1 MG (61010 (one) time UT) capsule per week. gabapentin 2021-11 Yes 100mg Q.[id number] Take 100 UT (Neurontin) 1-23 [id number] mg by H ealth 100 MG 10:59: 3D mouth in capsule 21 the morning and 100 mg at noon and 100 mg in the evening. HYDROcodone 2021-11 Yes UT -acetaminop 1-23 Health hen ([employer]) 10:59: 5-325 MG 21 tablet methocarbam 2021-11 Yes 500mg Q.25D Take 500 UT ol 1-23 mg by Health (Robaxin) 10:59: mouth in 500 MG 21 the tablet morning and 500 mg at noon and 500 mg in the evening and 500 mg before bedtime. aspirin 325 2021-11 Yes 325mg QD Take 325 U T MG tablet 1-23 mg by Health 10:59: mouth 1 21 (one) time each day. DULoxetine 2021-11 Yes 20mg QD Take 20 mg U T (Cymbalta) 1-23 by mouth 1 Hea lth [address] 10:59: (one) time capsule 21 each day. Do not crush or chew. ergocalcife 2021-11 Yes [id number] Take UT rol 1-23 50,000 Health (Vitamin 10:59: Units by D-2) 1.25 21 mouth 1 MG (35386 (one) time UT) capsule per week. gabapentin 2021-11 Yes 100mg Q.[id number] Take 100 UT (Neurontin) 1-23 [id number] mg by H ealth 100 MG 10:59: 3D mouth in capsule 21 the morning and 100 mg at noon and 100 mg in the evening. HYDROcodone 2021-11 Yes UT -acetaminop 1-23 Health hen ([place]) 10:59: 5-325 MG 21 tablet methocarbam 2021-11 Yes 500mg Q.25D Take 500 UT ol 1-23 mg by Health (Robaxin) 10:59: mouth in 500 MG 21 the tablet morning and 500 mg at noon and 500 mg in the evening and 500 mg before bedtime. aspirin 325 2021-11 Yes 325mg QD Take 325 U T MG tablet 1-23 mg by Health 10:59: mouth 1 21 (one) time each day. DULoxetine 2021-11 Yes 20mg QD Take 20 mg U T (Cymbalta) 1-23 by mouth 1 Hea lth [address] 10:59: (one) time capsule 21 each day. Do not crush or chew. ergocalcife 2021-11 Yes [id number] Take UT rol 1-23 50,000 Health (Vitamin 10:59: Units by D-2) 1.25 21 mouth 1 MG (66776 (one) time UT) capsule per week. gabapentin 2021-11 Yes 100mg Q.[id number] Take 100 UT (Neurontin) 1-23 [id number] mg by H ealth 100 MG 10:59: 3D mouth in capsule 21 the morning and 100 mg at noon and 100 mg in the evening. HYDROcodone 2021-11 Yes UT -acetaminop 1-23 Health hen ([place]) 10:59: 5-325 MG 21 tablet methocarbam 2021-11 Yes 500mg Q.25D Take 500 UT ol 1-23 mg by Health (Robaxin) 10:59: mouth in 500 MG 21 the tablet morning and 500 mg at noon and 500 mg in the evening and 500 mg before bedtime. aspirin 325 2021-11 Yes 325mg QD Take 325 U T MG tablet 1-23 mg by Health 10:59: mouth 1 21 (one) time each day. DULoxetine 2021-11 Yes 20mg QD Take 20 mg U T (Cymbalta) 1-23 by mouth 1 Hea lth [address] 10:59: (one) time capsule 21 each day. Do not crush or chew. ergocalcife 2021-11 Yes [id number] Take UT rol 1-23 50,000 Health (Vitamin 10:59: Units by D-2) 1.25 21 mouth 1 MG (70081 (one) time UT) capsule per week. gabapentin 2021-11 Yes 100mg Q.[id number] Take 100 UT (Neurontin) 1-23 [id number] mg by H ealth 100 MG 10:59: 3D mouth in capsule 21 the morning and 100 mg at noon and 100 mg in the evening. ergocalcife 2021-11 Yes 50,000 Harry gurdeep rol 50,000 1-08 IntlUnit = l intl units 13:16: 1 cap, PO, H ermann oral 00 qWeek, # 8 capsule cap, 0 Refill(s), Pharmacy: [facility] #[id number], 193.04, cm, 09/06/22 11:18:00 CDT, Height, 105.136, kg, 09/06/22 11:18:00 CDT, Weight aspirin 81 2021-11 Yes 81 mg = 1 Me moria mg tablet, 1-02 tab, PO, l enteric 18:24: Daily, # Abdirahman n coated 00 90 tab, 3 Refill(s) Aleve 220 2021-11 Yes 220 mg = 1 Me moria mg oral 1-02 tab, PO, l tablet 18:24: PRN, PRN Jez 00 Pain, # 30 tab, 0 Refill(s) Levemir 2021-11 Yes 30 unit, Memori a FlexPen 100 1-02 SUB-Q, l units/mL 18:23: Daily, # 3 Her [place] subcutaneou 00 mL, 0 s solution Refill(s) metoprolol 2021-11 Yes 50 mg = 1 Me moria tartrate 50 1-02 tab, PO, l mg oral 18:22: BID, # 180 Herm corinne tablet 00 tab, 0 Refill(s) metoprolol 2021-11 Yes UT tartrate 0-13 Health (Lopressor) 00:00: 50 MG 00 tablet Levemir 2021-11 Yes UT FlexTouch 0-13 Health 100 UNIT/ML 00:00: injection 00 metoprolol 2021-11 Yes UT tartrate 0-13 Health (Lopressor) 00:00: 50 MG 00 tablet Levemir 2021-11 Yes UT FlexTouch 0-13 Health 100 UNIT/ML 00:00: injection 00 metoprolol 2021-11 Yes UT tartrate 0-13 Health (Lopressor) 00:00: 50 MG 00 tablet Levemir 2021-11 Yes UT FlexTouch 0-13 Health 100 UNIT/ML 00:00: injection 00 metoprolol 2021-11 Yes UT tartrate 0-13 Health (Lopressor) 00:00: 50 MG 00 tablet metoprolol 2021-11 Yes UT tartrate 0-13 Health (Lopressor) 00:00: 50 MG 00 tablet Levemir 2021-11 Yes UT FlexTouch 0-13 Health 100 UNIT/ML 00:00: injection 00 Levemir 2021-11 Yes UT FlexTouch 0-13 Health 100 UNIT/ML 00:00: injection 00 metoprolol 2021-11 Yes UT tartrate 0-13 Health (Lopressor) 00:00: 50 MG 00 tablet Levemir 2021-11 Yes UT FlexTouch 0-13 Health 100 UNIT/ML 00:00: injection 00 metoprolol 2021-11 Yes UT tartrate 0-13 Health (Lopressor) 00:00: 50 MG 00 tablet Levemir 2021-11 Yes UT FlexTouch 0-13 Health 100 UNIT/ML 00:00: injection 00 metoprolol 2021-11 Yes UT tartrate 0-13 Health (Lopressor) 00:00: 50 MG 00 tablet Levemir 2021-11 Yes UT FlexTouch 0-13 Health 100 UNIT/ML 00:00: injection 00 metoprolol 2021-11 Yes UT tartrate 0-13 Health (Lopressor) 00:00: 50 MG 00 tablet Levemir 2021-11 Yes UT FlexTouch 0-13 Health 100 UNIT/ML 00:00: injection 00 Continuous Yes See UT Blood Gluc 9-16 administra Hea lth Sensor 00:00: tion (FreeStyle 00 instructio Manuel 14 ns. Day Sensor) misc Continuous Yes See UT Blood Gluc 9-16 administra Hea lth Sensor 00:00: tion (FreeStyle 00 instructio Manuel 14 ns. Day Sensor) misc Continuous Yes See UT Blood Gluc 9-16 administra Hea lth Sensor 00:00: tion (FreeStyle 00 instructio Manuel 14 ns. Day Sensor) misc Continuous 0 Yes See UT Blood Gluc 9-16 administra Hea lth Sensor 00:00: tion (FreeStyle 00 instructio Manuel 14 ns. Day Sensor) misc Continuous 0 Yes See UT Blood Gluc 9-16 administra Hea lth Sensor 00:00: tion (FreeStyle 00 instructio Manuel 14 ns. Day Sensor) misc Continuous Yes See UT Blood Gluc 9-16 administra Hea lth Sensor 00:00: tion (FreeStyle 00 instructio Manuel 14 ns. Day Sensor) misc Continuous Yes See UT Blood Gluc 9-16 administrsukh [facility] Sensor 00:00: tion (FreeStyle 00 instructio Manuel 14 ns. Day Sensor) misc Continuous Yes See UT Blood Gluc 9-16 administra [facility] Sensor 00:00: tion (FreeStyle 00 instructio Manuel 14 ns. Day Sensor) misc Continuous Yes See UT Blood Gluc 9-16 administrsukh [facility] Sensor 00:00: tion (FreeStyle 00 instructio Manuel 14 ns. Day Sensor) misc Continuous 2020-11 Yes SWIPE OVER U T Blood Gluc 2-14 SENSOR [facility] Senior [employer] Developer 00:00: NEEDED TO (FreeStyle 00 OBTAIN Manuel 14 BLOOD Day Iona) SUGAR device READINGS DAILY Continuous 2020-11 Yes SWIPE OVER U T Blood Gluc 2-14 SENSOR [facility] Senior [employer] Developer 00:00: NEEDED TO (FreeStyle 00 OBTAIN Manuel 14 BLOOD Day Iona) SUGAR device READINGS DAILY Continuous 2020-11 Yes SWIPE OVER U T Blood Gluc 2-14 SENSOR [facility] Senior [employer] Developer 00:00: NEEDED TO (FreeStyle 00 OBTAIN Manuel 14 BLOOD Day Iona) SUGAR device READINGS DAILY Continuous 2020-11 Yes SWIPE OVER U T Blood Gluc 2-14 SENSOR [facility] Senior [employer] Developer 00:00: NEEDED TO (FreeStyle 00 OBTAIN Manuel 14 BLOOD Day Iona) SUGAR device READINGS DAILY Continuous 2020-11 Yes SWIPE OVER U T Blood Gluc 2-14 SENSOR [facility] Senior [employer] Developer 00:00: NEEDED TO (FreeStyle 00 OBTAIN Manuel 14 BLOOD Day Iona) SUGAR device READINGS DAILY Continuous 2020-11 Yes SWIPE OVER U T Blood Gluc 2-14 SENSOR [facility] Senior [employer] Developer 00:00: NEEDED TO (FreeStyle 00 OBTAIN Manuel 14 BLOOD Day Iona) SUGAR device READINGS DAILY Continuous 2020-11 Yes SWIPE OVER U T Blood Gluc 2-14 SENSOR [facility] Senior [employer] Developer 00:00: NEEDED TO (FreeStyle 00 OBTAIN Manuel 14 BLOOD Day Iona) SUGAR device READINGS DAILY Continuous 2020-11 Yes SWIPE OVER U T Blood Gluc 2-14 SENSOR [facility] Senior [employer] Developer 00:00: NEEDED TO (FreeStyle 00 OBTAIN Manuel 14 BLOOD Day Iona) SUGAR device READINGS DAILY Continuous 2020-11 Yes SWIPE OVER U T Blood Gluc 2-14 SENSOR Heal th Senior [employer] Developer 00:00: NEEDED TO (FreeStyle 00 OBTAIN Manuel 14 BLOOD Day Iona) SUGAR device READINGS DAILY Immunizations Ordered Immunization Filled Immunization Date Status Commen ts Source Name Name influenza virus 2022-09-12 Completed [facility] vaccine, inactivated 17:36:00 Herm corinne [id number] 2020-12-11 Completed Harry rial [id number] 00:00:00 Jez [id number] 2020-11-13 Completed Harry rial [id number] 00:00:00 Jez Vital Signs Vital Name Observation Time Observation Value Comments Source Body height 2022-09-03 18:06:00 193 cm [facility] Body weight 2022-09-03 18:06:00 104.327 kg [facility] BMI 2022-09-03 18:06:00 28.00 kg/m2 [facility] Body height 2022-08-23 18:17:00 193 cm [facility] Body weight 2022-08-23 18:17:00 105.235 kg [facility] BMI 2022-08-23 18:17:00 28.24 kg/m2 [facility] Heart Rate 2022-09-13 14:05:36 [facility] Systolic (mm Hg) 2022-09-13 14:05:32 Harry rial [place] Diastolic (mm Hg) 2022-09-13 14:05:32 Mem orial Jez Temperature Oral (F) 2022-09-13 14:05:00 98.0 F [facility] Height 2022-09-11 17:05:00 193.04 cm [facility] Weight 2022-09-11 17:05:00 [facility] [place] Weight 2022-09-06 16:18:00 [facility] Jez BMI Calculated 2022-09-06 16:18:00 Memori al Jez Height 2022-09-05 18:01:00 6 [ft_i] [facility] Procedures Procedure Date / Time Performing Clinician Source Performed MD ARTHROCENTESIS ASP/INJ 2022-11-09 16:45:00 Chirag Kee [facility] MAJOR JOINT/BURSA W/OUT US C-REACTIVE PROTEIN 2022-08-23 19:47:00 Erma Vitale [facility] SEDIMENTATION RATE, 2022-08-23 19:47:00 Iam Er[facility] AUTOMATED MD ARTHROCENTESIS ASP/INJ 2022-08-23 19:36:56 Iam Erma [facility] MAJOR JOINT/BURSA W/OUT US [id number] 2021-08-09 00:00:00 RASSA [facility] Left atrial appendage 2020-11-04 00:00:00 Danielle al [place] closure Foot repair<sup>1</sup> [facility] [place] Achilles tendon repair [facility] [place] Hernia repair [facility] [place] Total hip replacement [facility] Total knee arthroplasty [facility] [place] Encounters Start End Encounter Admission Attending Care Care Encounter Source Date/Time Date/Time Type Type Clinicians Facility Department ID 2023-02-19 Outpatient [facility] [id number] [place] 08:15:49 [id number] [facility] 2023-01-13 Outpatient [facility] [id number] [place] 18:31:01 [id number] [facility] 2023-01-09 Outpatient [facility] [id number] [place] 08:10:49 [id number] [facility] 2022-12-18 Outpatient [facility] [id number] UT 07:34:57 [id number] [facility] 2022-12-15 Outpatient [facility] [id number] [place] 06:16:24 [id number] [facility] 2022-12-07 Outpatient [facility] [id number] [place] 10:38:39 [id number] [facility] 2022-12-04 Outpatient [facility] [id number] [place] 08:24:50 [id number] [facility] 2022-12-01 Outpatient [facility] [id number] UT 12:31:33 [id number] [facility] 2022-11-20 Outpatient [facility] [id number] UT 08:27:29 [id number] [facility] 2022-11-15 Outpatient [facility] [id number] [place] 10:08:21 [id number] [facility] 2022-11-12 Outpatient [facility] [id number] [place] 13:49:35 [id number] [facility] 2022-11-08 Outpatient [facility] [id number] [place] 15:25:52 [id number] [facility] 2022-11-07 Outpatient [facility] [id number] UT 15:24:03 [id number] [facility] 2022-09-26 Outpatient [facility] [id number] [place] 11:12:30 [id number] [facility] 2022-09-19 Outpatient [facility] [id number] [place] 11:17:15 [id number] [facility] 2022-09-12 Outpatient [id number] [facility] 14:59:43 [facility] [place] 2022-09-07 Outpatient [facility] [id number] [place] 08:48:37 [id number] [facility] 2022-09-06 [facility] [facility] [id number] [place] 11:33:34 [id number] [facility] 2022-09-04 Outpatient [facility] [id number] [place] 12:27:31 [id number] [facility] 2022-08-31 Outpatient [facility] [id number] [place] 13:38:24 [id number] [facility] 2022-08-23 Outpatient [facility] [id number] [place] 11:37:33 [id number] [facility] 2022-08-22 Outpatient [facility] [id number] [place] 11:15:46 [id number] [facility] 2023-11-11 2023-11-11 [facility] [id number] [place] 10:30:00 10:30:00 [facility] 2023-03-18 2023-03-18 Outpatient [facility] [id number] [place] 13:45:00 13:53:43 [facility] 2023-03-18 2023-03-18 Office SUKHI Kee [facility] [id number] [place] 13:45:00 13:47:38 Visit [facility] [id number] [facility] [id number] [address] 4 [id number] 2023-01-14 2023-01-14 Outpatient [facility] [id number] [place] 13:30:00 14:44:06 [facility] 2023-01-14 2023-01-14 Office SUKHI Kee [facility] [id number] [place] 13:30:00 13:52:46 Visit Chirag MARKS [id number] He [facility] MEDICAL [id number] PLA[address] 3 [id number] 2022-12-17 2022-12-17 Outpatient [facility] [id number] [place] 13:30:00 13:59:58 Health 2022-12-17 2022-12-17 Office SUKHI Kee [facility] [id number] [place] 13:30:00 13:59:35 Visit Chirag MARKS [id number] He [facility] MEDICAL 9.2.7.2.686 [address] 5 [id number] 2022-11-29 2022-12-01 Inpatient MICHELE MHCY [facility]Y 7501 MHCY 15:23:00 12:21:00 [facility] 2022-11-29 2022-11-29 Outpatient MICHELE [facility] [id number] [place] 12:15:00 12:15:00 [facility] 2022-09-21 2022-11-14 Outpatient BAILEE CLINE, ENCCLR ENCCLR [id number] ENCCLR 00:00:00 00:00:00 [facility] 2022-11-09 2022-11-09 Office SUKHI Kee [facility] [id number] [place] 10:45:00 11:58:53 Visit Chirag MARKS [id number] [facility] MEDICAL [id number] [address] 3 [id number] 2022-11-09 2022-11-09 Outpatient [facility] [id number] [place] 10:45:00 11:27:55 [facility] 2022-09-26 2022-09-26 Outpatient [facility] [id number] [place] 10:45:00 10:48:01 [facility] 2022-09-26 2022-09-26 Outpatient MICHELE [facility] [id number] [place] 10:45:00 10:47:14 [facility] 2022-09-24 2022-09-24 Outpatient MICHELE [facility] [id number] [place] 13:30:00 13:30:00 [facility] 2022-09-13 2022-09-21 Inpatient 3 SILVIANO CLINE SRINIVASA [id number] [facility] 13:56:00 12:30:00 FAT[facility] [place] [facility] 2022-09-11 2022-09-13 Inpatient [facility] [id number] [facility] 10:39:00 19:04:00 [place] [facility] 2022-09-11 2022-09-13 Inpatient MICHELE [facility] [id number] 04:39:00 13:04:00 [facility] 2022-09-11 2022-09-13 Outpatient Michele [facility] [id number] 04:39:00 13:04:00 Chirag 00 Daniel 2022-09-12 2022-09-12 Outpatient MARY, [facility] [id number] [place] 15:00:00 15:00:00 [facility] 2022-09-11 2022-09-11 Outpatient MICHELE, [facility] [id number] [place] 07:15:00 07:15:00 [facility] 2022-09-03 2022-09-03 Office Michele, [facility] [id number] [id number] [place] 13:30:00 14:21:39 Visit Chirag MARKS [id number] [facility] [id number] [address] 7 [id number] 2022-08-23 2022-08-23 Outpatient [facility] [id number] [place] 00:00:00 14:52:31 Health 2022-08-23 2022-08-23 Office SUKHI Vitale 6400 [id number] [place] 13:00:00 14:34:14 Visit Erma QUEEN [id number] Health [id number] [id number] 2021-09-26 2021-09-26 Inpatient MICHELLE Kendrick [id number] [facility] 05:09:00 05:09:00 Kw[facility] 2021-07-11 2021-08-09 Inpatient MICHELLE Kendrick OUTD [id number] [facility] 10:00:00 16:30:00 Kwaku [facility] Results Test Description Test Time Test Comments Results Result Comments Source POINT OF CARE 2022-09-13 17:32:00 Test Item Value Reference Range Interpretation Comme nts Glucose POC (test code = Glucose POC) 167 70-[address] [facility], TxDlytroqQWMAME0181-79-33 21:05:22 Test Item Value Reference Range Interpretation Comments RADRPT (test code EXAM: XR CHEST 1 VIEWDATE: = RADRPT) 09/12/2022 14:12 INDICATION: - to check the placement of PICC lineCOMPARISON: None.TECHNIQUE: AP chestFINDINGS: Lines, tubes and hardware: Left upper extremity PICC with tip projects over the mid SVC. No complications.Lungs and pleura: Lungs are clear. Costophrenic sulci are sharp.Heart and mediastinum: Cardiomediastinal silhouette is upper limits normal size. Left atrial appendage watchman device is noted. Bones: No acute bony abnormality is identified.IMPRESSION: 1. Left upper extremity PICC with tip projects over the mid SVC. No complications.2. No acute cardiopulmonary abnormality. [facility]OkopsqhQZOHERYFA1112-88-60 11:03:00 Test Item Value Reference Range Interpretation Comments Glucose Lvl (test code = Glucose Lvl) 153 70-99 [facility]KmrcfcfLFTJVPAAJ0049-22-93 11:03:00 Test Item Value Reference Range Interpretation Comments BUN (test code = BUN) 17 7-22 [facility] TexasNqyvwhsESEVUMDEG1633-04-99 11:03:00 Test Item Value Reference Range Interpretation Comments Creatinine Lvl (test code = Creatinine 1.01 0.50-1.40 Lvl) [facility] TexasRmghosgJOLJCARDY6124-33-43 11:03:00 Test Item Value Reference Range Interpretation Comments Sodium Lvl (test code = Sodium Lvl) 132 135-145 [facility] TexasRmzmaxbOAWFMTNKY6792-57-77 11:03:00 Test Item Value Reference Range Interpretation Comments Potassium Lvl (test code = Potassium 4.0 3.5-5.1 Lvl) [facility] TexasKbjixcbJRACCSSTN4525-13-36 11:03:00 Test Item Value Reference Range Interpretation Comments Chloride Lvl (test code = Chloride Lvl) 99 95-109 [facility] TexasKwvhoyrIUTLVOZOV6836-06-86 11:03:00 Test Item Value Reference Range Interpretation Comments CO2 (test code = CO2) 24 24-32 [facility] TexasOguiekySQQOTKOJQ2447-32-32 11:03:00 Test Item Value Reference Range Interpretation Comments Calcium Lvl (test code = Calcium Lvl) 8.6 8.5-10.5 [facility] TexasDfbimfzZMFWIGZHD1974-02-85 11:03:00 Test Item Value Reference Range Interpretation Comments AGAP (test code = AGAP) 13.0 10.0-20.0 [facility] TexasHqqipcnHYSVRWJMH6700-65-88 11:03:00 Test Item Value Reference Range Interpretation Comments eGFR (test code = eGFR) 76 [facility] TexasCbhbwhcLXLUPTTNF9332-05-34 11:03:00 Test Item Value Reference Range Interpretation Comments Vancomycin AUC (test code = Vancomycin 9.6 AUC) [facility]KrvhzatFWWQJXLZCR1693-40-73 11:03:00 Test Item Value Reference Range Interpretation Comments Segs (test code = Segs) 64.8 45.0-75.0 [facility] CenterHctkaxaWPTYNCOIJA0607-65-53 11:03:00 Test Item Value Reference Range Interpretation Comments Lymphocytes (test code = Lymphocytes) 18.3 20.0-40.0 [facility] CenterPaaasuhQHXLYDXRIH2000-23-77 11:03:00 Test Item Value Reference Range Interpretation Comments Monocytes (test code = Monocytes) 13.7 2.0-12.0 [facility] CenterQopbvbyXFIJGCTPPH1686-57-37 11:03:00 Test Item Value Reference Range Interpretation Comments Eosinophils (test code = 2.7 See_Comment [A utomated message] The Eosinophils) system which ge nerated this result tra nsmitted reference range : <=4.0. The reference r mynor was not used to int erpret this result as normal/abnormal . [facility] CenterKiefvtqOXLTKAYQAP3079-87-14 11:03:00 Test Item Value Reference Range Interpretation Comments Basophils (test code = 0.5 See_Comment [Aut omated message] The Basophils) system which ge nerated this result tra nsmitted reference range : <=1.0. The reference r mynor was not used to int erpret this result as normal/abnormal . [facility] CenterTdapcreTHPYCDRFGP9960-35-70 11:03:00 Test Item Value Reference Range Interpretation Comments Neutrophils # (test code = Neutrophils 5.8 1.5-8.1 #) [facility] CenterXbyrajjTFLYALAMWE4972-21-19 11:03:00 Test Item Value Reference Range Interpretation Comments Lymphocytes # (test code = Lymphocytes 1.6 1.0-5.5 #) [facility] CenterBfrpegaBXVZHMMBGO9505-05-42 11:03:00 Test Item Value Reference Range Interpretation Comments Monocytes # (test code 1.2 See_Comment [Aut omated message] The = Monocytes #) system which generated this result tra nsmitted reference range : <=0.8. The reference r mynor was not used to int erpret this result as normal/abnormal . [facility] CenterUfcoqbtWLXUCHTPVY3628-99-55 11:03:00 Test Item Value Reference Range Interpretation Comments Eosinophils # (test code 0.2 See_Comment [A utomated message] The = Eosinophils #) system whic h generated this result tra nsmitted reference range : <=0.5. The reference r mynor was not used to int erpret this result as normal/abnormal . [facility] CenterNfealqsCJMHVQOVGY3768-29-78 11:03:00 Test Item Value Reference Range Interpretation Comments WBC (test code = WBC) 9.0 3.7-10.4 [facility] CenterDzmyvdjXOMEKCFRWB7805-49-60 11:03:00 Test Item Value Reference Range Interpretation Comments RBC (test code = RBC) 4.13 4.70-6.10 [facility] CenterGibllzxPPSSODITXD3990-32-43 11:03:00 Test Item Value Reference Range Interpretation Comments Hgb (test code = Hgb) 12.1 14.0-18.0 [facility] CenterMgipfopGNCEHVTGBR3530-54-33 11:03:00 Test Item Value Reference Range Interpretation Comments Hct (test code = Hct) 36.2 42.0-54.0 [place] 936662-11-09 11:03:00 Test Item Value Reference Range Interpretation Comments MCV (test code = MCV) 87.5 80.0-94.0 [facility] CenterMtamnmvWTQXHSFYPQ2503-07-41 11:03:00 Test Item Value Reference Range Interpretation Comments MCH (test code = MCH) 29.4 pg 27.0-31.0 [facility] CenterGynlwqvKVXTHOYSPZ2668-52-52 11:03:00 Test Item Value Reference Range Interpretation Comments MCHC (test code = MCHC) 33.6 32.0-36.0 [place] 936662-11-09 11:03:00 Test Item Value Reference Range Interpretation Comments RDW (test code = RDW) 13.9 11.5-14.5 [facility]qieavjIHFFUASDUT8310-04-93 11:03:00 Test Item Value Reference Range Interpretation Comments Platelet (test code = Platelet) 164 133-450 [facility] HospitalEwednkfJLDDSIRKKA4953-80-59 11:03:00 Test Item Value Reference Range Interpretation Comments MPV (test code = MPV) 9.0 7.4-10.[address] 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, TxCulture: AFB w/Jexut3152-85-73 14:59:00 Test Item Value Reference Range Interpretation Comments Culture: AFB w/Smear (test Culture in Process code = Culture: AFB w/Smear) [facility] Gjaahimfm0401-46-54 14:59:00 Test Item Value Reference Range Interpretation Comments Culture: Anaerobic No Anaerobes Isolated (test code = Culture: After 4 Days Anaerobic) [facility] St[facility] Ykmvul3170-69-14 14:59:00 Test Item Value Reference Range Interpretation Comments Gram Stain Report Rare WBC's No Organisms (test code = Gram Seen Stain Report) [facility], TxCulture: Aspirate/Body Fluid/Cacvhm4236-92-12 14:59:00 Test Item Value Reference Range Interpretation Comments Culture: Rare Corynebacterium Aspirate/Body striatum Fluid/Tissue (test code = Culture: Aspirate/Body Fluid/Tissue) [facility] Uyhix3265-21-74 14:59:00 Test Item Value Reference Range Interpretation Comments Fungal Smear (test No Yeast Or Fungal code = Fungal Smear) Elements [facility]en [facility]: Fungal w/Mqhrd7914-37-78 14:59:00 Test Item Value Reference Range Interpretation Comments Culture: Fungal w/Smear Culture In Progress (test code = Culture: Fungal w/Smear) [facility]AFB Srpab3382-20-21 14:55:00 Test Item Value Reference Range Interpretation Comments AFB Stain (test code = No Acid Fast Bacilli AFB Stain) [facility]: [facility]B w/Yzpyv2139-47-53 14:55:00 Test Item Value Reference Range Interpretation Comments Culture: AFB w/Smear (test Culture in Process code = Culture: AFB w/Smear) [facility] Lsuhx5904-84-95 14:55:00 Test Item Value Reference Range Interpretation Comments Fungal Smear (test No Yeast Or Fungal code = Fungal Smear) [facility]en [facility]: Fungal w/Kkpdr7885-51-20 14:55:00 Test Item Value Reference Range Interpretation Comments Culture: Fungal w/Smear Culture In Progress (test code = Culture: Fungal w/Smear) [facility] St[facility] Qpnbwj6762-39-76 14:55:00 Test Item Value Reference Range Interpretation Comments Gram Stain Report No Wbc'S Or Organisms (test code = Gram Seen Stain Report) [facility], TxCulture: Aspirate/Body Fluid/Hodflh0494-13-98 14:55:00 Test Item Value Reference Range Interpretation Comments Culture: Rare Corynebacterium Aspirate/Body striatum Fluid/Tissue (test code = Culture: Aspirate/Body Fluid/Tissue) [facility], TxCulture: Yvwxazevr6699-01-34 14:55:00 Test Item Value Reference Range Interpretation Comments Culture: Anaerobic No Anaerobes Isolated (test code = Culture: After 4 Days Anaerobic) [facility] Fnhht7542-57-16 14:13:00 Test Item Value Reference Range Interpretation Comments AFB Stain (test code = No Acid Fast Bacilli AFB Stain) [facility]: [facility]B w/Eqebm3673-63-64 14:13:00 Test Item Value Reference Range Interpretation Comments Culture: AFB w/Smear (test Culture in Process code = Culture: AFB w/Smear) [facility] Okqjh1113-42-12 14:13:00 Test Item Value Reference Range Interpretation Comments Fungal Smear (test No Yeast Or Fungal code = Fungal Smear) Elements Seen [facility], TxCulture: Fungal w/Uqrtm0010-99-61 14:13:00 Test Item Value Reference Range Interpretation Comments Culture: Fungal w/Smear Culture In Progress (test code = Culture: Fungal w/Smear) [facility] TylerQiwzrgaKXUBMGIZD7561-40-58 14:37:00 Test Item Value Reference Range Interpretation Comments Albumin Lvl (test code = Albumin Lvl) 3.4 3.5-5.[address] [facility], TxQvktkqpILSZTMYLD9765-60-41 14:37:00 Test Item Value Reference Range Interpretation Comments Vitamin D, 25-OH, Total (test code = 27 30-100 Vitamin D, 25-OH, Total) [facility], TxTnvdswlNTLGSXJGV5769-83-60 14:37:00 Test Item Value Reference Range Interpretation Comments Hgb A1C (test code = Hgb A1C) 7.[address] [facility], TxAgybpomHGWEKPHCYW3142-63-05 14:37:00 Test Item Value Reference Range Interpretation Comments Basophils # (test code 0.1 See_Comment [Aut omated message] The = Basophils #) system which generated this result tra nsmitted reference range : <=0.2. The reference r mynor was not used to int erpret this result as normal/abnormal . [facility], TxC-reactive tskbtqb4429-08-55 18:00:00 Test Item Value Reference Range Interpretation Comments C-REACTIVE PROTEIN 49 mg/L See_Comment H [Automat ed (test code = 1987-5) message ] The system which generated this result transmitted reference range : <=8.0. The reference range was not used to interpret this result as normal/abnormal . RAC (test code = Performing RAC) Organization Information: ? ?Site ID: RGA ? ?Name: [employer] [place] ? ?Address: [address] [place] [phone] ? ?Director: JESUSITA PRATT MD Lab Interpretation Abnormal (test code = 64091-5) [facility] [id number] 18:00:00 Test Item Value Reference Range Interpretation Comments SED RATE BY MODIFIED 65 mm/h See_Comment H [Autom ated PAYALREN (test message] Th e code = 4537-7) system which generated this result transmitted reference range : < OR = 20. The reference range was not used to interpret this result as normal/abnormal . RAC (test code = Performing RAC) Organization Information: ? ?Site ID: RGA ? ?Name: [employer] [place] ? ?Address: [address] [place] [phone] ? ?Director: JESUSITA PRATT MD Lab Interpretation Abnormal (test code = 67294-3) [facility] W/AUTO [id number] 12:05:00 Test Item Value Reference Range Interpretation Comments WHITE BLOOD CELL (test code = 9.8 x10 3/uL 4.5-11.0 N WBC) RED BLOOD CELL (test code = 5.22 x10 6/uL 4.00-5.60 N RBC) HEMOGLOBIN (test code = HGB) 15.3 g/dL 12.5-16.9 N HEMATOCRIT (test code = HCT) 45.9 % 37.5-50.7 N MEAN CELL VOLUME (test code = 87.9 fL 81.0-99.0 N MCV) MEAN CELL HGB (test code = MCH) 29.3 pg 27.0-33.0 N MEAN CELL HGB CONCETRATION 33.3 g/dL 33.0-37.0 N (test code = MCHC) RED CELL DISTRIBUTION WIDTH CV 14.3 % 11.5-14.5 N (test code = RDW) PLATELET COUNT (test code = 229 x10 3/uL 150-400 N PLT) NEUTROPHIL % (test code = NT%) 66.4 % 56.0-77.0 N LYMPHOCYTE % (test code = LY%) 21.6 % 14.0-32.0 N NEUTROPHIL # (test code = NT#) 6.48 x10 3/uL 2.0-7.6 N LYMPHOCYTE # (test code = LY#) 2.11 x10 3/uL 1.0-3.8 N MANUAL DIFF REQUIRED (test code NO = MDIFF) RED CELL DISTRIBUTION WIDTH SD 45.7 fL 37.0-54.0 N (test code = RDW-SD) MEAN PLATELET VOLUME (test code 10.9 fL 7.0-9.0 H = MPV) IMMATURE GRANULOCYTE % (test 0.9 % 0.0-2.0 N code = IG%) MONOCYTE % (test code = MO%) 8.9 % 4.8-9.0 N EOSINOPHIL % (test code = EO%) 1.7 % 0.3-3.7 N BASOPHIL % (test code = BA%) 0.5 % 0.0-2.0 N NUCLEATED RBC % (test code = 0.0 % 0-0 N NRBC%) IMMATURE GRANULOCYTE # (test 0.09 x10 3/uL 0.00-0.03 H code = IG#) MONOCYTE # (test code = MO#) 0.87 x10 3/uL 0.1-0.8 H EOSINOPHIL # (test code = EO#) 0.17 x10 3/uL 0.0-0.2 N BASOPHIL # (test code = BA#) 0.05 x10 3/uL 0.0-0.2 N NUCLEATED RBC # (test code = 0.00 x10 3/uL 0.0-0.1 N NRBC#) BASIC METABOLIC [id number] 11:50:00 Test Item Value Reference Range Interpretation Comments SODIUM (test code = NA) 139 mEq/L 134-147 N POTASSIUM (test code = 4.4 mEq/L 3.4-5.0 N K) CHLORIDE (test code = 105 mEq/L 100-108 N CL) CARBON DIOXIDE (test 25 mEq/l 21-33 N code = CO2) ANION GAP (test code = 14 0-20 N GAP) GLUCOSE (test code = 137 mg/dL 70-110 H GLU) BLOOD UREA NITROGEN 22 mg/dL 7-18 H (test code = BUN) GLOMERULAR FILTRATION 72.5 70-80 N Units of measure = RATE (test code = GFR) ml/mi n/1.73 m2 CREATININE (test code = 1.0 mg/dL 0.6-1.3 N CREAT) CALCIUM (test code = 9.8 mg/dL 8.0-10.5 N CA) PROTHROMBIN [id number] 11:47:00 Test Item Value Reference Range Interpretation Comments PROTHROMBIN TIME 14.0 SECONDS 9.3-12.9 H PATIENT (test code = PTP) INTERNATIONAL NORMAL 1.3 0.8-1.2 H TARGET INR BY RATIO (test code = INDICATIO N Indication INR) INR1. Prophylax is of venous thrombos is 2.0 - 3.0 (orthoped ic surgery), Proph ylaxis of venous throm bosis (other than hig h-risk surgery), Treat ment of Deep Vein Thrombosis/Pulm onary Embolism, Preve ntion of systemic emb olism - Tissue heart va lves, Acute Myocardia l Infarction (to prevent systemic emboli sm), Valvular heart disease, Atrial Fibrillation, Bileaflet mecha nical valve in aortic position.2. Mec hanical prosthetic valv es (high risk), 2. 5 - 3.5 Presence of Lup us Anticoagulant o r Antiphospholipi d Antibodies, Pre vention of systemic emb olism - Acute Myocardia l Infarction (to prevent recurrent infar ct). COVID 19 Asymptomatic IH [id number] 11:14:00 Test Item Value Reference Range Interpretation Comments COVID 19 Asymptomatic Negative Negative A nega tive result is IH AG (test code = presumpti ve and should COVNONPUIAG) be confirmedwit h an FDA authorized mole cular assay, if neces elise forpatient rola gement.A positive result does not rule out co-inf ections withother patho gens.This test detects ivone th viable (live) and non-viable,SARS -CoV, and SARS-CoV-2. Alexandra t performance dep ends on theamount of vi samanta (antigen) in th e sample.This alexandra t has not been FDA cleare d or approved; the t est hasbeen authori zed by FDA under an Em ergency Use Authorizati on(EUA) for use by labo ratories certified under the CLIA thatmeet the requirements to perform moderate, high or waivedcomplexit y tests. 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 : 1945 Age/S: 75/M [address] [place] [address] Unit #: [id number] Loc: [place] [address] Phys: Felipe Maguire [facility] Acct: [id number] Dis Date: Status: ADM IN PHONE #: [phone] Exam Date: 08/09/2021 165 FAX #: [phone] Reason: WATCHMAN EXAMS:CPT CODE: [id number] XR CHEST 1 V 63040 PROCEDURE INFORMATION: Exam: XR Chest Exam date and time: 08/09/2021 3:52 PM Age: 75 years old Clinical indication: Screening exam; Other screening; Additional info: Watchman TECHNIQUE: Imaging protocol: XR of the chest. Views: 1 view. COMPARISON: DX XR CHEST 2 V 08/07/2021 1:16 PM FINDINGS: Tubes, catheters and devices: There is a new mesh basket metallic device in the region of the left cardiac atrial appendage, consistent with the given history. Lungs: Unremarkable. No consolidation. Pleural spaces: Unremarkable. No pleural effusion. No pneumothorax. Heart/Mediastinum: Unremarkable. No cardiomegaly. Bones/joints: Unremarkable. IMPRESSION: 1. There is no acute cardiopulmonary process. at 1658 Reported and signed by: Anup Nunez D.O. CC: John Varela MD; Kwaku Chen MD; Felipe MckeonSaint Luke'S East Hospitaldoris Technologist: RT Joni(R) Trnscrd Date/Time/By: 08/09/2021 (1657) : By: [email or web address] Orig Print D/T: S: 08/09/2021 (1657) PAGE 1 Signed ReportNovel Coronavirus 2019 [id number] 10:40:00 Test Item Value Reference Range Interpretation Comments Novel Coronavirus Negative Negative Positive r esults are 2019 Inhouse (test indicativ e of the presence code = COVNONPUI) ofSARS-CoV -2 RNA, clinical correlation wit h patient historyand othe r diagnostic info rmation is necessary to determinepatien t infection status. Positiv e results do not rule out bacterial infection or co -infection with other viru ses. Negative result s do not preclude SARS-C oV-2 infection andsh ould not be used as the emi e basis for patient managementdecis ions. Negative result s must be combined with otherclinical observations, p atient history, and epidemiological information . Detection of SARS-CoV-2 RNA may be affe cted bysample collec tion methods, storag e conditions, and /or stageof infection. Sophie l RNA mutations, vacc inations, antiviraltherap eutics, antibiotics, chemotherapeuti c orimmunosuppres neha drugs have not been e valuated for effectson d etection. Results are for the identification of SARS-CoV-2 RNA usingthe Jumia M2000 Sy stem under the FDA Emergen cy UseAuthorizatio n. The testing is perf ormed by personneltraine d in the procedures for the Garner M2000 molecular diagnostic SARS-CoV-2 assa y in vitro. BASIC METABOLIC [id number] 13:07:00 Test Item Value Reference Range Interpretation Comments SODIUM (test code = NA) 142 mEq/L 134-147 N POTASSIUM (test code = 4.1 mEq/L 3.4-5.0 N K) CHLORIDE (test code = 105 mEq/L 100-108 N CL) CARBON DIOXIDE (test 28 mEq/l 21-33 N code = CO2) ANION GAP (test code = 13 0-20 N GAP) GLUCOSE (test code = 136 mg/dL 70-110 H GLU) BLOOD UREA NITROGEN 21 mg/dL 7-18 H (test code = BUN) GLOMERULAR FILTRATION 72.5 70-80 N Units of measure = RATE (test code = GFR) ml/mi n/1.73 m2 CREATININE (test code = 1.0 mg/dL 0.6-1.3 N CREAT) CALCIUM (test code = 9.8 mg/dL 8.0-10.5 N CA) [id number] 13:07:00 Test Item Value Reference Range Interpretation Comments PREALBUMIN (test code = PREALB) 21.1 mg/dL 16.0-40.0 N PROTHROMBIN [id number] 13:03:00 Test Item Value Reference Range Interpretation Comments PROTHROMBIN TIME 18.4 SECONDS 9.3-12.9 H PATIENT (test code = PTP) INTERNATIONAL NORMAL 1.7 0.8-1.2 H TARGET INR BY RATIO (test code = INDICATIO N Indication INR) INR1. Prophylax is of venous thrombos is 2.0 - 3.0 (orthoped ic surgery), Proph ylaxis of venous throm bosis (other than hig h-risk surgery), Treat ment of Deep Vein Thrombosis/Pulm onary Embolism, Preve ntion of systemic emb olism - Tissue heart va lves, Acute Myocardia l Infarction (to prevent systemic emboli sm), Valvular heart disease, Atrial Fibrillation, Bileaflet mecha nical valve in aortic position.2. Mec hanical prosthetic valv es (high risk), 2. 5 - 3.5 Presence of Lup us Anticoagulant o r Antiphospholipi d Antibodies, Pre vention of systemic emb olism - Acute Myocardia l Infarction (to prevent recurrent infar ct). CBC W/AUTO [id number] 12:44:00 Test Item Value Reference Range Interpretation Comments WHITE BLOOD CELL (test code = 9.6 x10 3/uL 4.5-11.0 N WBC) RED BLOOD CELL (test code = 4.56 x10 6/uL 4.00-5.60 N RBC) HEMOGLOBIN (test code = HGB) 13.1 g/dL 12.5-16.9 N HEMATOCRIT (test code = HCT) 41.9 % 37.5-50.7 N MEAN CELL VOLUME (test code = 91.9 fL 81.0-99.0 N MCV) MEAN CELL HGB (test code = MCH) 28.7 pg 27.0-33.0 N MEAN CELL HGB CONCETRATION 31.3 g/dL 33.0-37.0 L (test code = MCHC) RED CELL DISTRIBUTION WIDTH CV 14.3 % 11.5-14.5 N (test code = RDW) PLATELET COUNT (test code = 202 x10 3/uL 150-400 N PLT) NEUTROPHIL % (test code = NT%) 69.2 % 56.0-77.0 N LYMPHOCYTE % (test code = LY%) 20.4 % 14.0-32.0 N NEUTROPHIL # (test code = NT#) 6.67 x10 3/uL 2.0-7.6 N LYMPHOCYTE # (test code = LY#) 1.96 x10 3/uL 1.0-3.8 N MANUAL DIFF REQUIRED (test code NO = MDIFF) RED CELL DISTRIBUTION WIDTH SD 48.2 fL 37.0-54.0 N (test code = RDW-SD) MEAN PLATELET VOLUME (test code 10.4 fL 7.0-9.0 H = MPV) IMMATURE GRANULOCYTE % (test 0.6 % 0.0-2.0 N code = IG%) MONOCYTE % (test code = MO%) 7.4 % 4.8-9.0 N EOSINOPHIL % (test code = EO%) 1.9 % 0.3-3.7 N BASOPHIL % (test code = BA%) 0.5 % 0.0-2.0 N NUCLEATED RBC % (test code = 0.0 % 0-0 N NRBC%) IMMATURE GRANULOCYTE # (test 0.06 x10 3/uL 0.00-0.03 H code = IG#) MONOCYTE # (test code = MO#) 0.71 x10 3/uL 0.1-0.8 N EOSINOPHIL # (test code = EO#) 0.18 x10 3/uL 0.0-0.2 N BASOPHIL # (test code = BA#) 0.05 x10 3/uL 0.0-0.2 N NUCLEATED RBC # (test code = 0.00 x10 3/uL 0.0-0.1 N NRBC#) - XR CHEST 2 [id number] 00:00:00 [facility] 1945 Sex: M FAX: John Bautista MD [phone] [place]: St: PRE FAX: Kwaku Tate MD [phone] Name: GARY GREENE [facility] : 1945 Age/S: 75/M [address] [place] [address] Unit #: [id number] Loc: [place] [address] Phys: Kwaku Chen MD Acct: [id number] Dis Date: Status: PRE [facility] [place]ONE #: [phone] Exam Date: 08/07/2021 1340 FAX #: [phone] Reason: PREOP EXAMS: CPT CODE: [id number] XR CHEST 2 V 05904 PROCEDURE INFORMATION: Exam: XR Chest Exam date and time: 08/07/2021 1:16 PM Age: 75 years old Clinical indication: Other: Preop TECHNIQUE: Imaging protocol: XR of the chest. Views: 2 views. PA and Lateral CO MPARISON: No relevant prior studies available. FINDINGS: Lungs: There are normal lung volumes without consolidation or interstitial oppacities. Pleural spaces: No pleural effusion. No pneumothorax. Heart/Mediastinum: The heart size is normal. Vasculature: Aorta is tortuous. Bones/joints: There are degenerative changes in the midthoracic spine. IMPRESSION: No acute cardiopulmonary process. at 1410 Reported and signed by: Daniel Price M.D. CC: John Varela MD; Kwaku Chen MD Technologist: RT Malu(John) Trnscrd Date/Time/By: 08/07/2021 (1409) : By: [email or web address] Orig Print D/T: S: 08/07/2021 (1410) PAGE 1 Signed Repor t Notes Date/Time Note Provider Source 2022-11-29 15:40:53-00:00 PROCEDURE INFORMATION: [facility] [place] Exam: XR Left Knee Exam date and time: 11/29/2022 3:42 PM Age: 76 years old Clinical indication: /post-operative imaging TECHNIQUE: Imaging protocol: Radiologic exam of the Left kn ee. Views: 1 or 2 views. COMPARISON: KNEE 1-2 VIEWS UNILATERAL DX, LEFT 09/11/2022 11: 19 AM FINDINGS: Bones/joints: Constrained left knee arthroplasty . There is some demineralization of the bones. Joint effusion. Soft tissues: Soft tissue swelling, subcutaneous gas, skin rod. 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 The components are in their expected location in this limited study. Notes: If there is further concern, destiney mmend follow-up radiographs, CT or MRI for complete assessment. Marcio Yeung MD On 11/29/2022 16:28:23; [id number] 2022-09-12 13:40:00-00:00 EXAM: XR CHEST [address] [facility] [place] [place] DATE: 09/12/2022 14:12 INDICATION: - to check the placement of PICC john e COMPARISON: None. TECHNIQUE: AP chest FINDINGS: Lines, tubes and hardware: L eft upper extremity PICC with tip projects over the mid SVC. No complications. Lungs and pleura: Lungs are clear. Costophrenic sulci are sharp. Heart and mediastinum: Cardi omediastinal silhouette is upper limits normal size. Left atrial appendage watchman device is noted. Bones: No acute bony abnormality is identified. IMPRESSION: 1. Left upper extremity PICC with tip projects over the mid SVC. No complications. 2. No acute cardiopulmonary abnormality. 2022-09-11 11:19:00-00:00 EXAM: XR Knee 1-2 Views unilateral DX, Left [facility] [place] [place] DATE: 09/11/2022 11:22 INDICATION: - 2 View AP/Lat s/p explant and stag e 1 TKA Pain. COMPARISON: None available TECHNIQUE: 2 view projections of the Left knee DISCUSSION: A total knee replacement is seen with a antibiotic tibial component in satisfactory alignment. Global alignment is satisfactory. Soft tissues demonstrate evidence of recent surg yogi. IMPRESSION: Follow-up examination demons trates satisfactory appearance of revision left total knee replacement with the antibiotic base tibial component in satisfactory alignment 2021-11-15 15:01:00-00:00 [id number] [place] [address] PATIENT NAME: GARY GREENE ADMIT DATE: 09/26/21 ACCOUNT NO: [id number] ROOM NO: AGE: 75 REPORT TYPE: eTRANSESOPHAGEAL ECHO REPORT SEX: M ADMITTING PHYSICIAN: ATTENDING PHYSICIAN:Kwaku Chen MD *[place] [address] Transesophageal Echocardiogram Patient: Gary Greene Study Date: 09/26/2021 BP: 118 / 72 Location: [facility] URN: [id number] : 1945 Age: 75 Height: 70 in / 177.8 cm Gender: M Weight: 24 3 lb / 110.5 kg BMI/BSA: 34.9 kg/m 2 / 2.38 m 2 *Ordering Physician: * Kwaku Chen *Interpreting Physician: * April Ames MD *[employer] Professional: * John PaulKeyur martina Indications: Post Watchman. Study data: Consent: The risks, benefits, and al ternatives to the procedure were explained to the patient and info rmed consent was obtained. Procedure: Initial setup: The patient was brought to the laboratory in the fasting state.Intravenous acce ss was obtained. Surface ECG leads and pulse oximetric signals were monit ored. Sedation. Moderate sedation was administered by cardiology staff. T ransesophageal echocardiography was performed. Topical anesthes ia was obtained using benzocaine spray. A transesophageal probe was in serted by the attending water resource consultant without difficulty. Image quality w as adequate. Limited 2D, Doppler, and color Doppler. Location: [facility] . Patient status: Outpatient. Patient room number: 7. Study status : Routine. Study completion: The patient tolerated the procedure well. There were no complications. Rhythm: Normal sinus rhythm. PATIENT NAME: GARY GREENE 28 Findings Left ventricle: The cavity size is normal. Wall thickness is normal. Systolic function is normal. The estimated eject ion fraction is 50-54%. Right ventricle: The cavity size is normal. Syst olic function is normal. Left atrium: The atrium is normal in size. Post Watchman: The 27 mm Watchman JEANNE occluder device is well seated. The re is no evidence of residual flow around the Watchman occluder devic e. There is no evidence of a thrombus in the atrial cavity or appendage. No spontaneous echo contrast is observed. Right atrium: The atrium is normal in size. Ther e is no evidence of a thrombus in the atrial cavity or appendage. Atrial septum: There is a small atrial septal de fect. Aorta: Aortic root: The aortic root is normal in size. There is no atheroma. There is no evidence for a neurysm. There is no evidence for dissection. Aortic valve: The valve is structurally normal. The valve is trileaflet. Cusp separation is normal. There is no evidence of stenosis. There is no regurgitation. Mitral valve: The valve is structurally normal. There is no evidence of a vegetation. There is no evidence o f stenosis. There is mild to moderate regurgitation. Tricuspid valve: The valve is structurally poli l. There is no evidence of a vegetation. There is no regurgitat ion. Conclusions Summary: 1. Left ventricle: The cavity size is normal. Wa ll thickness is normal. Systolic function is normal. The estimated ejec tion fraction is 50-54%. 2. Left atrium: Post Watchman: The 27 mm Watchma n JEANNE occluder device is well seated. There is no evidence of residual f low around the Watchman occluder device. There is no evidence of a thrombus in the atrial cavity or appendage. No spontaneous echo contrast is observed. 3. Right atrium: There is no evidence of a throm bus in the atrial cavity or appendage. 4. Atrial septum: There is a small atrial septal defect. 5. Mitral valve: There is no evidence of a veget ation. There is mild to moderate regurgitation. 6. Tricuspid valve: There is no evidence of a ve getation. Prepared and electronically signed by April Ames MD 11/15/2021 15:01 PATIENT NAME: GARY GREENE 28 Electronically Signed by Kwaku Chen MD on at 1501 PATIENT NAME: GARY GREENE 26 2021-08-10 10:33:00-00:00 [id number] [place] [address] PATIENT NAME: GARY GREENE ADMIT DATE: 08/09/21 ACCOUNT NO: [id number] ROOM NO: KORI AGE: 75 REPORT TYPE: eECHOCARDIOGRAM REPORT SEX: M ADMITTING PHYSICIAN:Kwaku Chen MD ATTENDING PHYSICIAN:Kwaku Chen MD *[place] [address] Limited Transthoracic Echocardiogram Patient: Gary Greene Study Date: 08/09/2021 BP: 117 / 60 Location: [facility] URN: [id number] : 1945 Age: 75 Height: 75 in / 190.5 cm Gender: M Weight: 218 .5 lb / 99.3 kg BMI/BSA: 27.4 kg/m 2 / 2.28 m 2 *Ordering Physician: * Felipe Maguire *Interpreting Physician: * Noman Fisher MD *[employer] Professional: Rosario Montoya Indications: R/O PERICARDIAL EFFUSION. Study data: Transthoracic echocardiogram, jarad frias study. Procedure: Transthoracic echocardiography was performed. Im ages were obtained using a Visualnest cardiac ultrasound machine. Limited 2D and limited spectral Doppler. Location: Bedside. Patient status: Phillipmn sally. Patient room number: PACU. Study status: Routine. Findings Left ventricle: The cavity size is normal. Wall thickness is normal. The estimated ejection fraction is 50-54%. Left atrium: The atrium is dilated. Pericardium: There is no pericardial effusion. PATIENT NAME: GARY GREENE 25 Measurements Left ventricle Value Ref LOREE, LAX 5.9 cm 4.2 - 5.8 ESD, LAX 3.9 cm 2.5 - 4.0 ESD/bsa, LAX 1.7 cm/m 2 1.3 - 2.1 FS, LAX 34 % 25 - 43 PW, ED 1.1 cm 0.6 - 1.0 IVS/PW, ED 0.95 EF 62 % 52 - 72 Ventricular septum Value Ref IVS, ED 1.0 cm 0.6 - 1.0 Left atrium Value Ref AP dim, ES 5.68 cm 3.00 - 4.00 Conclusions Summary: 1. Left ventricle: The cavity size is normal. Wa ll thickness is normal. The estimated ejection fraction is 50-54%. 2. Left atrium: The atrium is dilated. Prepared and electronically signed by Noman Fisher MD 08/10/2021 10:33 Electronically Signed by Noman Fisher MD on 1 at 1033 PATIENT NAME: GARY GREENE 425 2021-08-09 14:47:00-00:00 [id number] [place] [address] PATIENT NAME: GARY GREENE ADMIT DATE: 08/09/21 ACCOUNT NO: [id number] ROOM NO: KORI AGE: 75 REPORT TYPE: eELECTROCARDIOGRAM REPORT SEX: M ADMITTING PHYSICIAN:Kwaku Chen MD ATTENDING PHYSICIAN:Kwaku Chen MD Order: [id number] Test Reason : S/P WATCHMAN INPLANT Test Date/Time Stamp: SatAug 09 2021 14:47:04 Blood Pressure : / mmHG Vent. Rate : 058 BPM Atrial Rate : 094 BPM P-R Int : 166 ms QRS Dur : 100 ms QT Int : 472 ms P-R-T Axes : 014 036 035 degree s QTc Int : 463 ms Sinus rhythm with blocked premature atrial compl exes Nonspecific ST abnormality Abnormal ECG Confirmed by DWIGHT ARAGON MD ([id number]) on 08/10/20 7:19:19 AM Referred By: Kwaku Chen Confirmed by:DWIGHT MITCHELL MD at 0719 PATIENT NAME: GARY GREENE 23 2021-08-09 13:43:00-00:00 [facility] ([facility]) Discharge Summary REPORT#:[id number] REPORT STATUS: Signed DATE:08/09/21 TIME: 1343 PATIENT: GARY GREENE UNIT #: [id number] ROOM/BED: KORI : 43 AGE: 75 SEX: M ATTEND: Leora Chen MD ADM AUTHOR: Felipe Lara * ALL edits or amendments must be made on the [employer]/computer document * PCP PCP Discharge to: home General Information Discharge date: 08/09/21 Hospital course: Patient with permanent atrial fibrillation, ARNIE SVASC score of 3, and intolerance to long-term anticoagulation due to fall risk. Patient is s/p successful implantation of a 27mm Watchman device in the left atrial appendage. Patient tolerated the procedure without post-op complications. No thrombus was identified in the pre-/intra-op DAI. Postoperatively, chest x-ray is negative for any acute process. Post-op echo did not show a pericardial effusion. Patient ambulated without an y difficulty, and heart rate and blood pressure are stable. Right groin suture removed by this POINT OF CARE SPECIALIST. No infect ion, bleeding, or hematoma. Dermabond applied and intact. Patient was provided with post-Watchman discharg e instructions. Patient is to follow up with PCP and water resource consultant in 1 to 2 we eks post discharge. Patient is to follow up with water resource consultant for th e 45-day DAI, and for anticoagulation recommendation. Patient is to continue Eliquis until the 45-day DAI. If the 45-day DAI shows a we ll-seated watchman device with no leaks or thrombus, then Eliquis will be discontinued and th e patient will be initiated on aspirin and Plavix. Duration of aspirin is lifelong. Duration of Plavix is 6 months post 45-day DAI. Post-Watchman discharge instructions given to th e patient who verbalized understanding, and patient w as instructed to report any complaints of chest pain , shortness of breath, lightheadedness, or dizzi ness to the water resource consultant. Dispo: It is medically necessary that patients u ndergoing percutaneous left atrial appendage occlusion are admitted as an in patient. This patient had a recovery that was earlier than expected and can be discharged today. Med Rec PCP PCP: PCP: John Varela MD Med Rec Discharge meds: Continue taking these medications: METOPROLOL TARTRATE (LOPRESSOR) 50 MG TAB 50 MILLIGRAM ORAL TWICE DAILY. APIXABAN (ELIQUIS) 5 MG TAB 5 MILLIGRAM ORAL TWICE DAILY. INSULIN DETEMIR (LEVEMIR FlexTouch (15mL)) 100 U NIT/ML (3 ML) PEN.INJCTR 30 UNITS SUBCUTANEOUS DAILY. Objective VS/I O Last Documented: Result Date Time Pulse Ox 97 08/09 1004 B/P 135/69 08/09 1004 Temp 36.3 08/09 1004 Pulse 71 08/09 1004 PATIENT WEIGHT: Weight (lb): 219 Weight (oz): 7.35 Weight (kg): 99.545 General appearance: alert, awake, oriented, no a cute distress Cardiovascular: irregular rhythm Respiratory: clear to auscultation, no distress GI: soft, non-tender Extremities: moves all Neuro/FIELD IRRIGATION WORKER: alert, oriented X 3 Skin: dry Wound/incision: Location: Right groin suture removed by this POINT OF CARE SPECIALIST. No infect ion, bleeding, or hematoma. Dermabond applied and intact Results Findings/Data: Laboratory Tests: 08/09 08/09 1144 1132 Coagulation Activated Coag Time (74 - 137 SEC) 224 H 208 H Treatments Procedures Treatments Procedures: Left atrial appendage closure using 27 mm Watchm an FLX closure device. Discharge Instructions PCP PCP: PCP: John Varela MD )( Discharge to: Home/Self Care Discharge Instructions Additional Discharge Routines: Attending Follow- Up )( Diet: Cardiac )( Activity: As Tolerated Follow-up Appointments Attending Physician: Attending Physician: Kwaku Chen MD Attending physician follow up timeframe: In 1-2 weeks Electronically Signed by Felipe Lara o n 08/10/21 at 0651 Electronically Signed by Kwaku Chen MD on 03/25 at 1606 [facility] #:[id number] END OF REPORT 2021-08-09 11:53:00-00:00 [id number] [address] PATIENT NAME: GARY GREENE ADMIT DATE: 08/09/21 ACCOUNT NO: [id number] ROOM NO: KORI AGE: 75 REPORT TYPE: CARDIAC CATHETERIZATION REPORT SEX: M ADMITTING PHYSICIAN:Kwaku Chen MD ATTENDING PHYSICIAN:Kwaku Chen MD PROCEDURE DATE: 08/09/2021 PROCEDURE PERFORMED: Left atrial appendage closu re using 27 mm Watchman FLX closure device. INDICATIONS: Atrial fibrillation with falls and high risk of stroke and inability to take anticoagulants due to that. COMPLICATIONS: None. ACCESS: Right femoral vein, 16-Omani closed wit h [id number] suture. DESCRIPTION OF PROCEDURE: After risks, benefits, and alternatives were explained, the patient agreed to proceed and sig tiburcio informed consent. The patient was brought into [facility] catheterization laboratory, prepped and draped in usual sterile fashion. Then, I accessed the r ight femoral vein using ultrasound guidance and micr opuncture kit, placed an 8-Omani sheath and gave a partial dose of heparin. Dur ing that time, DAI was done by anesthesia and there was no thrombus in the appendage and it was favo rable for closure, so we proceeded with 16-Omani sheath in exchange off the 8-Omani sheath and then took SL1 sheath with painless needle into the SV C and descended under the guidance of DAI and fluoroscopy and at the low m id position, a transseptal puncture was performed. Then, we measure d LA pressure. LA pressure measured at 19 mmHg. Then, I took ProTrack wire into the lef t atrium, exchanged the SL1 sheath for the Watchman double curve sheath and took the pigtail through the Watchman sheath into the left atrial appendage a nd telescoped the Watchman sheath over it into the appendage. Angiogram of the appendage was done and determined 27 mm device will be suitable for closure. The device was prepped in the usual sterile fashion an d then removed the pigtail and introduced the device delivery system under positive flush and after good bleed back from the sheath and then device was deployed under fluoroscopy a nd ultrasound guidance. Then, PASS criteria were all evaluated and the y were all met. At this point a device was released in position wit h no complications. Watchman sheath was removed and the 16-Omani sheath was removed and figure-of-e ight suture was applied with good hemostasis. CONCLUSION: Successful left atrial appendage closure using a 27-mm Watchman FLX closure device. Dictated By: Kwaku Chen MD WT: CATH:LENA/JONA/LEONOR PATIENT NAME: GARY GREENE 25 Conf#: [id number]/DID#: [id number] Authenticated by Kwaku Chen MD On 08/15/2021 12:27:25 PM Electronically Signed by Kwaku Chen MD on at 1227 PATIENT NAME: GARY GREENE 25 2021-08-07 12:22:00-00:00 [id number] [place] [address] PATIENT NAME: GARY GREENE ADMIT DATE: ACCOUNT NO: [id number] ROOM NO: AGE: 75 REPORT TYPE: eELECTROCARDIOGRAM REPORT SEX: M ADMITTING PHYSICIAN: ATTENDING PHYSICIAN:Kwaku Chen MD Order: [id number] Test Reason : PREOP Test Date/Time Stamp: SatAug 07 2021 12:22:29 Blood Pressure : / mmHG Vent. Rate : 090 BPM Atrial Rate : 097 BPM P-R Int : 000 ms QRS Dur : 094 ms QT Int : 384 ms P-R-T Axes : 000 051 044 degree s QTc Int : 469 ms Atrial fibrillation with pre mature ventricular or aberrantly conducted complexes Abnormal ECG PRE_OP Confirmed by DWIGHT ARAGON MD ([id number]) on 08/07/20 2:01:33 PM Referred By: Kwaku Chen Confirmed by:DWIGHT MITCHELL MD at 1401 PATIENT NAME: GARY GREENE 23
--- NOTE | 2023-07-05 21:09 | RAD REPORT ---
EXAM DESCRIPTION: CT - CTHCSPWOC - 07/05/2023 9:00 pm CLINICAL HISTORY: Trauma, head and neck injury. head injury, fall COMPARISON: <Comparisons> TECHNIQUE: Axial 5 mm thick images of the head were obtained. Axial 2 mm thick images of the cervical spine were obtained with sagittal and coronal reconstruction images generated and reviewed. All CT scans are performed using dose optimization technique as appropriate and may include automated exposure control or mA/KV adjustment according to patient size. FINDINGS: CT HEAD WITHOUT CONTRAST: No acute hemorrhage, hydrocephalus or extra-axial collection is identified.No areas of brain edema or midline shift. The paranasal sinuses and mastoids are clear.The calvarium is intact. CT CERVICAL SPINE WITHOUT CONTRAST: No fracture or subluxation.Mild lower cervical degenerative spondylosis.No prevertebral soft tissues swelling is identified. IMPRESSION: No acute intracranial or cervical spine findings.
--- NOTE | 2023-07-05 21:12 | ER ---
Nurse's Notes [facility] Name: Gary Rader Age: 77 yrs Sex: Male : 1945 Arrival Date: 07/05/2023 Time: 19:14 Bed 4 Private MD: John Varela T Diagnosis: Unspecified injury of head, initial encounter Presentation: 07/05 19:29 Chief complaint: Patient states: Fell off of the bed and hit the back of head on vc1 unknown object. Coronavirus screen: Client reports previous positive COVID test result. Ebola Screen: Patient negative for fever greater than or equal to 101.5 degrees Fahrenheit, and additional compatible Ebola Virus Disease symptoms Patient denies exposure to infectious person. Patient denies travel to an Ebola-affected area in the 21 days before illness onset. Risk Assessment: Do you want to hurt yourself or someone else? Patient reports no desire to harm self or others. Onset of symptoms was July 05, 2023. 19:29 Method Of Arrival: Wheelchair vc1 19:29 Acuity: KAREL 2 vc1 21:28 Initial Sepsis Screen: Does the patient meet any 2 criteria? No. Patient's initial bp sepsis screen is negative. Does the patient have a suspected source of infection? No. Patient's initial sepsis screen is negative. Triage Assessment: 19:33 General: Appears in no apparent distress. uncomfortable, Behavior is calm, cooperative, vc1 appropriate for age. Pain: Denies pain. EENT: No deficits noted. No signs and/or symptoms were reported regarding the EENT system. Neuro: Level of Consciousness is awake, alert, obeys commands, Oriented to person, place, time, situation, Appropriate for age. Cardiovascular: No deficits noted. Respiratory: Airway is patent Respiratory effort is even, unlabored, Respiratory pattern is regular, symmetrical. GI: No deficits noted. No signs and/or symptoms were reported involving the gastrointestinal system. : No deficits noted. No signs and/or symptoms were reported regarding the genitourinary system. Derm: No deficits noted. No signs and/or symptoms reported regarding the dermatologic system. Musculoskeletal: No deficits noted. No signs and/or symptoms reported regarding the musculoskeletal system. Historical: - Allergies: 19:30 No Known Allergies; vc1 - Home Meds: 19:30 aspirin 81 mg oral tablet,chewable [Active]; metoprolol tartrate 50 mg Oral tab 1 tab 2 vc1 times per day [Active]; Levemir FlexTouch 100 unit/mL (3 mL) subcutaneous inpn 30 unit daily [Active]; - PMHx: 19:30 Atrial Fib; Diabetes - IDDM; Hypertension; vc1 - PSHx: 19:30 Watchman; vc1 - Immunization history:: Client reports receiving the 2nd dose of the Covid vaccine. - Social history:: Smoking status: Patient denies any tobacco usage or history of. - Family history:: not pertinent. - Hospitalizations: : No recent hospitalization is reported. Screenin:33 [facility] ED Fall Risk Assessment (Adult) History of falling in the last 3 months, bp including since admission Yes- single mechanical fall (1 pt). Abuse screen: Denies threats or abuse. Denies injuries from another. Nutritional screening: No deficits noted. Tuberculosis screening: No symptoms or risk factors identified. Assessment: 19:33 General: SEE TRIAGE NOTE. bp 21:25 Reassessment: DC HOME VIA WC WITH FAMILY. bp Vital Signs: 19:29 Weight 106.59 kg; Height 6 ft. 4 in. ; vc1 19:40 BP 136 / 87; Pulse 103; Resp 18; Temp 100.2(O); Pulse Ox 96% on R/A; vc1 21:25 BP 141 / 79; Pulse 89; Resp 16; Pulse Ox 100% ; bp 19:29 Body Mass Index 28.60 (106.59 kg, 193.04 cm) vc1 ED Course: 19:16 Patient arrived in ED. mr 19:16 John Varela MD is Private Physician. mr 19:30 Triage completed. vc1 19:33 Arm band placed on left wrist. vc1 19:33 Patient has correct armband on for positive identification. Bed in low position. Call bp light in reach. Side rails up X2. 19:39 Alfonso Amaya MD is Attending Physician. rn 19:44 Daniel Fairchild, ANTOINETTE is Primary Nurse. bp 20:59 CT Head C Spine In Process Unspecified. EDMS 21:27 No provider procedures requiring assistance completed. Patient did not have IV access bp during this emergency room visit. Administered Medications: No medications were administered Medication: 19:33 VIS not applicable for this client. bp Outcome: 21:12 Discharge ordered by . rn 21:27 Discharged to home via wheelchair, with family. bp 21:27 Condition: stable 21:27 Discharge instructions given to patient, family, Instructed on discharge instructions, follow up and referral plans. Demonstrated understanding of instructions, follow-up care. 21:28 Patient left the ED. bp Signatures: Dispatcher [employer] JOSE ConleyCarole Roman, MD MD rn Peltier, Brian, RN RN bp Ronda Olivera RN RN vc1 Corrections: (The following items were deleted from the chart) 19:33 19:30 Home Meds: metoprolol tartrate 50 mg Oral tablet; vc1 vc1
--- NOTE | 2023-07-05 21:12 | EDPHYS ---
Physician Documentation [facility] Name: Gary Rader Age: 77 yrs Sex: Male : 1945 Arrival Date: 07/05/2023 Time: 19:14 Bed 4 Private MD: John Varela T ED Physician Alfonso Amaya HPI: 07/05 19:43 This 77 yrs old Male presents to ER via Wheelchair with complaints of Covid+, Fall rn Injury, Head Injury-Adult. 19:43 Details of fall: The patient fell from a supine position, out of bed. Onset: The rn symptoms/episode began/occurred just prior to arrival. Associated injuries: The patient sustained injury to the head. Severity of symptoms: At their worst the symptoms were mild, in the emergency department the symptoms have improved. 19:59 The patient has not experienced similar symptoms in the past. Pt reports reaching for rn something and fell off bed, hit head, no LOC. No other injuries. . Historical: - Allergies: 19:30 No Known Allergies; vc1 - Home Meds: 19:30 aspirin 81 mg oral tablet,chewable [Active]; metoprolol tartrate 50 mg Oral tab 1 tab 2 vc1 times per day [Active]; Levemir FlexTouch 100 unit/mL (3 mL) subcutaneous inpn 30 unit daily [Active]; - PMHx: 19:30 Atrial Fib; Diabetes - IDDM; Hypertension; vc1 - PSHx: 19:30 Watchman; vc1 - Immunization history:: Client reports receiving the 2nd dose of the Covid vaccine. - Social history:: Smoking status: Patient denies any tobacco usage or history of. - Family history:: not pertinent. - Hospitalizations: : No recent hospitalization is reported. ROS: 19:59 Constitutional: Negative for fever, chills, and weight loss, Neck: Negative for injury, rn pain, and swelling, Cardiovascular: Negative for chest pain, palpitations, and edema, Respiratory: Negative for shortness of breath, cough, wheezing, and pleuritic chest pain, Abdomen/GI: Negative for abdominal pain, nausea, vomiting, diarrhea, and constipation, Back: Negative for injury and pain, MS/Extremity: Negative for injury and deformity, Skin: Negative for injury, rash, and discoloration, Neuro: + head injury Exam: 19:59 Constitutional: This is a well developed, well nourished patient who is awake, alert, rn and in no acute distress. Head/Face: + skin tear and abrasion to occiput, no active bleeding Cardiovascular: Tachycardic, regular. No pulse deficits. Respiratory: No increased work of breathing, no retractions or nasal flaring. Neuro: Awake and alert, GCS 15, oriented to person, place, time, and situation. Cranial nerves II-XII grossly intact. Motor strength 5/5 in all extremities. Sensory grossly intact. Cerebellar exam normal. Normal gait. Vital Signs: 19:29 Weight 106.59 kg; Height 6 ft. 4 in. ; vc1 19:40 BP 136 / 87; Pulse 103; Resp 18; Temp 100.2(O); Pulse Ox 96% on R/A; vc1 21:25 BP 141 / 79; Pulse 89; Resp 16; Pulse Ox 100% ; bp 19:29 Body Mass Index 28.60 (106.59 kg, 193.04 cm) vc1 MDM: 19:39 Patient medically screened. rn 21:11 Differential diagnosis: abrasion, closed head injury, contusion, fracture. Data rn reviewed: vital signs, nurses notes, radiologic studies, CT scan, and as a result, I will discharge patient. Counseling: I had a detailed discussion with the patient and/or guardian regarding the historical points, exam findings, and any diagnostic results supporting the discharge/admit diagnosis, radiology results, the need for outpatient follow up, to return to the emergency department if symptoms worsen or persist or if there are any questions or concerns that arise at home. Special discussion: Based on the patient's history, exam and DX evaluation, there is no indication for emergent intervention or inpatient TX. It is understood by the patient/guardian that if the SXs persist or worsen they need to return immediately for re-evaluation. I discussed with the patient/guardian in detail that at this point there is no indication for admission to the hospital. It is understood, however, that if the symptoms persist or worsen the patient needs to return immediately for re-evaluation. 07/05 19:38 Order name: CT Head C Spine; Complete Time: 21:11 rn Administered Medications: No medications were administered Disposition Summary: 07/05/23 21:12 Discharge Ordered Location: Home rn Problem: new rn Symptoms: have improved rn Condition: Stable rn Diagnosis - Unspecified injury of head, initial encounter rn Followup: rn - With: Private Physician - When: As needed - Reason: Recheck today's complaints, Re-evaluation by your physician Discharge Instructions: - Discharge Summary Sheet rn - Head Injury, Adult rn Forms: - Medication Reconciliation Form rn - Thank You Letter rn - Antibiotic physician internist - Prescription Opioid Use rn - Patient Portal Instructions rn - Leadership Thank You Letter rn Signatures: Dispatcher [employer] EDAlfonso Billy MD MD rn Calcote, Vanessa, RN RN vc1 Corrections: (The following items were deleted from the chart) 19:33 19:30 Home Meds: metoprolol tartrate 50 mg Oral tablet; vc1 vc1
[2023-07-05 21:32] VITALS: TEMP 100.2
[2023-07-05 21:33] VITALS: BP 141/79; O2SAT 100
== END 2023-07-05 21:28 | disposition home or self-care (01) ==
LOC: ER 19:14
DX: S00.81XA Abrasion of other part of head, initial encounter (principal); E11.9 Type 2 diabetes mellitus without complications; Z79.4 Long term (current) use of insulin; I10 Essential (primary) hypertension; Z79.82 Long term (current) use of aspirin
CPT/HCPCS: 70450; 72125; 99282